=== PATIENT | male | born 1945 | race Caucasian/White ===

== ENCOUNTER → 2017-07-28 | Outpatient (CLI) | payer MEDICARE, BC ==
[2017-07-28 14:36] LABS: CH 32.7; CHCM 35.8; HCT 50.2 % (39.0-53.0); HDW 2.76; HGB 17.7 gm/dL (13.0-17.5); MCH 32.3 pg (25.0-35.0); MCHC 35.2 g/dL (31.0-37.0); MCV 91.9 fL (80.0-100.0); Mean Platelet Volume 7.1; RBC 5.47 m/uL (4.30-5.90); RDW 13.3 % (11.5-15.5)
[2017-07-28 14:48] LABS: Anion Gap 12 mmol/L; Blood Urea Nitrogen 23 mg/dL (9-20); Calcium 9.5 mg/dL (8.4-10.2); Carbon Dioxide 21 mmol/L (22-30); Chloride 108 mmol/L (98-107); Glucose 151 mg/dL (74-99); Non-African American GFR(MDRD) >60 (>60 ml/min/1.73 sqM); Sodium 141 mmol/L (137-145)
== END | disposition home or self-care (01) ==
LOC: LABWHC1 14:08
PROVIDERS: ATTEND Internal Medicine Clinical Cardiac Electrophysiology
DX: I48.1 Persistent atrial fibrillation (principal)
CPT/HCPCS: 36415; 80048; 85027

== ENCOUNTER → 2017-08-02 | Day surgery (SDC) | payer MEDICARE, BC ==
[2017-07-28 13:24] VITALS: BMI 39.3
[~2017-08-02] MED LIST: LACTATED RINGERS 1,000 ML IV ONE; LIDOCAINE 1% INJ 10MG/ML (20 ML MDV) ONE; MIDAZOLAM 2 MG/2 ML VIAL ONE; PROPOFOL 10 MG/ML 20 ML VIAL IV ONE; SODIUM CHLORIDE 0.9% 1,000 ML IV ONE
[2017-08-02 10:53] LABS: Glucose,Whole Blood 124 mg/dL (75-99)
--- NOTE | 2017-08-02 12:40 | P.PCN ---
Preoperative Diagnosis: Procedure Electrical cardioversion Indication for the procedure Symptomatic atrial fibrillation despite adequate rate control, persistent in nature Result 360 J biphasic shock in the AP configuration 2 failed to convert to sinus rhythm 360 J shock in the anterior apical configuration 1 showed immediate recurrence of atrial fibrillation with bursts of brief atrial tachycardia followed by A. fib Suggest Continue current medications Continue anticoagulation Proceed with A. fib ablation Postoperative Diagnosis: Procedure(s) Performed: Implants: Anesthesia: MAC Indications for Procedure: Operative Findings: Description of Procedure:
[2017-08-02 12:42] VITALS: RESP 16
[2017-08-02 13:18] VITALS: TEMP 97.8
[2017-08-02 13:44] VITALS: PULSE 71
[2017-08-02 14:25] VITALS: BP 115/75
== END ==
LOC: CATHCVL 10:23
PROVIDERS: ATTEND Internal Medicine Clinical Cardiac Electrophysiology
DX: I48.1 Persistent atrial fibrillation (principal); I10 Essential (primary) hypertension; I42.9 Cardiomyopathy, unspecified; I49.5 Sick sinus syndrome; I47.1 Supraventricular tachycardia; E66.9 Obesity, unspecified; Z68.39 Body mass index [BMI] 39.0-39.9, adult; G47.33 Obstructive sleep apnea (adult) (pediatric); Z99.89 Dependence on other enabling machines and devices; E78.5 Hyperlipidemia, unspecified; Z82.49 Family history of ischemic heart disease and other diseases of the circulatory system; Z79.84 Long term (current) use of oral hypoglycemic drugs; Z79.02 Long term (current) use of antithrombotics/antiplatelets; Z79.82 Long term (current) use of aspirin; Z79.899 Other long term (current) drug therapy; Z98.890 Other specified postprocedural states
CPT/HCPCS: 92960; J2250; J2001; J2704

== ENCOUNTER 2017-08-30 06:09 | Day surgery (SDC) | payer MEDICARE, BC ==
[2017-08-30] MEDS: SODIUM CHLORIDE 0.9% 1,000 ML IV SCH (06:37)
[2017-08-30 07:23] LABS: Glucose,Whole Blood 137 mg/dL (75-99)
[2017-08-30] MEDS ORDERED: HEPARIN SODIUM,PORCINE 10,000 UNIT/ML 1 ML VIAL ONE (07:24)
[2017-08-30] MEDS ORDERED: PHENYLEPHRINE-0.9% NACL SYG 1 MG/10 ML SYRINGE ONE (07:24)
[2017-08-30] MEDS ORDERED: SUCCINYLCHOLINE CHLORIDE VIAL 200 MG/10 ML VIAL IV ONE (07:24)
[2017-08-30] MEDS ORDERED: ATROPINE SULFATE 0.4 MG/ML 1 ML VIAL ONE (07:24)
[2017-08-30] MEDS ORDERED: LIDOCAINE 1% INJ 10MG/ML (20 ML MDV) ONE (07:24)
[2017-08-30] MEDS ORDERED: PROTAMINE SULFATE 10 MG/ML 5 ML VIAL IV ONE (07:24)
[2017-08-30] MEDS ORDERED: MIDAZOLAM 2 MG/2 ML VIAL ONE (07:24)
[2017-08-30] MEDS ORDERED: PROPOFOL 10 MG/ML 20 ML VIAL IV ONE (07:24)
[2017-08-30] MEDS ORDERED: fentaNYL (PF) 50 MCG/ML 2 ML AMP ONE (07:24)
[2017-08-30] MEDS ORDERED: LIDOCAINE 2% INJ 20 MG/ML SQ ONE (08:12)
[2017-08-30] MEDS ORDERED: HEPARIN SODIUM,PORCINE/D5W PMX 25,000 UNIT in DEXTROSE/WATER 1 500ML.BAG IV ONE (08:30)
[2017-08-30] MEDS ORDERED: FUROSEMIDE 10 MG/ML 4 ML VIAL ONE (08:36)
[2017-08-30] MEDS ORDERED: HYDROcodone/APAP 7.5-325MG 1 EACH TAB PO PRN (11:13)
[2017-08-30] MEDS ORDERED: ACETAMINOPHEN TAB 325 MG TAB PO PRN (11:14)
--- NOTE | 2017-08-30 11:31 | P.PCN ---
Preoperative Diagnosis: Procedures performed (PVI - CRYO Ablation) Invasive hemodynamic monitoring while general anesthesia, right femoral arterial line for monitoring and sampling Comprehensive diagnostic EP study with attempted arrhythmia induction CS pacing and recording Catheter the mapping of the tachycardia (NOT 3D mapping) Intracardiac echocardiography Pulmonary vein isolation with transseptal and comprehensive EPS, [id number] Electrical cardioversion for atrial fibrillation Procedure details Patient was brought to the EP lab in a fasting state. Written informed consent was obtained prior to the procedure. Procedure performed under general anesthesia After initial muscle relaxant use, muscle relaxants were not given thereafter in order to assess phrenic nerve during procedure Patient prepped and draped as per protocol Full cryo-set up with standard preparation of the cryoablation tools done Femoral Venous access obtained on the right and left groins Sheaths placed Diagnostic catheters for the high right atrium, phrenic nerve stimulation and pacing, His bundle, RV and coronary sinus placed Intracardiac echo catheter placed Long sheath placed in the right atrium Left and right transseptal catheterization performed under intracardiac echo guidance Intravenous heparin with aCT above 300 Later, catheter positioning and balloon positioning under intracardiac echo Baseline measurements During sinus rhythm sinus cycle length was 1970 ms, ND interval 228, QRS 84 QT interval 427 ms. AH interval 114 ms, HV interval 63 ms Comprehensive diagnostic EP study Atrial pacing performed from the high right atrium and the coronary sinus and right ventricle pacing also performed AV node Wenckebach block from the coronary sinus for 90 ms, VA Wenckebach block greater than 600 ms. Straight pacing from the high right atrium, AV node Wenckebach block 550 ms. Transseptal catheterization performed RA pressure 21/15/18 LA pressure 29/15/21 Transseptal catheterization performed with standard sheath. The cryoablation sheath was then placed with an over the wire exchange without any acute complications. All 4 pulmonary veins were isolated in the following sequence: Left superior followed by left inferior followed by right superior followed by right inferior The cryo-ablation balloon was placed at the os of each vein 1.5 mL of IV dye was injected to confirm an occluded vein Goal during cryoablation was to achieve -30C in the first 30 seconds. If not the balloon was repositioned to obtain this result After completion of Cryoblation with durations from 180-240 seconds, entrance block was confirmed with the Attain circular catheter in a roving fashion around the antrum of the pulmonary veins Phrenic nerve pacing was performed from the SVC, right innominate vein area and diaphragm voltage was monitored as well as manually Left superior pulmonary vein was fibrillating prior to the start of study Successful isolation of the veins with entrance block demonstrated during distal CS pacing Left inferior pulmonary vein Successful isolation with entrance block Time to isolation less than 60 seconds Right superior pulmonary vein, during phrenic nerve pacing successful isolation with entrance block Right superior PVI completely isolated in the first 3 minutes, unable to demonstrate TT-PVI Right inferior pulmonary vein, during phrenic nerve pacing Successful isolation with entrance block demonstrated. Time to isolation less than 60 seconds At the end of the procedure the Achieve catheter was once again used to check for entrance block Phrenic nerve stimulation was performed to confirm diaphragmatic stimulation the end of the procedure Cine fluoroscopy was performed at the very end of the procedure to confirm movement of both diaphragms with inspiration and expiration At the end of the procedure the patient was extubated Heparin was reversed Venous sheaths were removed and hemostasis assured Result Successful pulmonary vein isolation using cryo-ablation Complete entrance block in all 4 veins confirmed No evidence for phrenic nerve injury Where possible, TT-PVI was demonstrated with a 20 mm achieve catheter. Left superior pulmonary vein was fibrillating during atrial fibrillation After all veins were isolated electrical cardioversion was successfully performed Condition: stable Disposition: floor
[2017-08-30] MEDS ORDERED: IOHEXOL 350 MG/ML (PER ML) 100ML BTL INJ ONE (11:43)
[2017-08-30] MEDS ORDERED: ACETAMINOPHEN IV (For NPO) 1,000 MG/100 ML VIAL IVPB ONE (13:00)
[2017-08-30] MEDS ORDERED: FUROSEMIDE 10 MG/ML 4 ML VIAL IV SCH ×2 (13:00→15:00)
[2017-08-30 13:41] LABS: Glucose,Whole Blood 155 mg/dL (75-99)
[2017-08-30] MEDS: LACTATED RINGERS 1,000 ML IV SCH (13:48)
[2017-08-30] MEDS ORDERED: SODIUM CHLORIDE 0.9% 1,000 ML IV SCH (14:30)
[2017-08-30] MEDS: FAMOTIDINE 20 MG TAB PO SCH (15:01)
[2017-08-30 16:23] VITALS: BMI 40.0
[2017-08-30 17:25] LABS: Glucose,Whole Blood 149 mg/dL (75-99)
[2017-08-30] MEDS: CARVEDILOL 3.125 MG TAB PO SCH (18:33)
[2017-08-30] MEDS: LISINOPRIL 20 MG TAB PO SCH (20:43)
[2017-08-30] MEDS: COLCHICINE 0.6 MG TAB PO SCH (20:43)
[2017-08-30] MEDS: APIXABAN 5 MG TAB PO SCH (20:43)
[2017-08-30] MEDS ORDERED: metFORMIN 500 MG TAB PO SCH (21:00)
[2017-08-30] MEDS ORDERED: ATORVASTATIN 20 MG TAB PO SCH (21:00)
[2017-08-30 21:04] LABS: Glucose,Whole Blood 175 mg/dL (75-99)
[2017-08-31] MEDS: LACTATED RINGERS 1,000 ML IV SCH (06:10)
[2017-08-31] MEDS: SODIUM CHLORIDE 0.9% 1,000 ML IV SCH (06:10)
[2017-08-31 06:26] LABS: Glucose,Whole Blood 120 mg/dL (75-99)
[2017-08-31] MEDS: CARVEDILOL 3.125 MG TAB PO SCH ×3 (06:33→17:31)
[2017-08-31] MEDS ORDERED: FUROSEMIDE 40 MG TAB PO STA (07:40)
[2017-08-31] MEDS: LISINOPRIL 20 MG TAB PO SCH (07:48)
[2017-08-31] MEDS: FAMOTIDINE 20 MG TAB PO SCH (07:49)
[2017-08-31] MEDS: COLCHICINE 0.6 MG TAB PO SCH ×2 (07:49→17:25)
[2017-08-31] MEDS: APIXABAN 5 MG TAB PO SCH (07:49)
--- NOTE | 2017-08-31 07:56 | ECHOF ---
Referral Reason:POST EP BP DROP MEASUREMENTS -------- HEIGHT: 182.9 cm WEIGHT: 129.3 kg BP: 87/51 FINDINGS -------- Sinus rhythm. This was a technically adequate study. Limited Study Overall left ventricular systolic function is normal with, an EF between 55 - 60 %. There is no pericardial effusion. CONCLUSIONS -------- 1. Sinus rhythm. 2. This was a technically adequate study. 3. Limited Study 4. Overall left ventricular systolic function is normal with, an EF between 55 - 60 %. 5. There is no pericardial effusion. BOLT SAWYER: Jazzmine Gordon RDCS
--- NOTE | 2017-08-31 07:58 | P.DS ---
Providers Attending physician: Medardo Camara Primary care physician: [facility] Course: Patient is doing well. He denies any chest discomfort no pleuritic pain no dizziness lightheadedness. He did walk up to the bathroom. No cough phlegm or expectoration no odynophagia On examination his breath sounds are reduced bilaterally with some crackles at both bases. Heart sounds S1 and S2 are normal no murmurs or gallops abdomen soft nontender extremities are warm no edema. Groins have healed well. No hematoma minimal tenderness noted. No JVD Blood pressure was 110/66. His mercury and 118 on repeat examination. Pulse rate in the 60s and 70s Impression Persistent atrial fibrillation, failed electrical cardioversion recently, unable to cardiovert him, symptomatic A. 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 The left superior pulmonary vein was arrhythmogenic and was fibrillating After isolation of all 4 pulmonary veins electrical cardioversion was performed and was successful at first attempt Suggest Lasix 40 mg by mouth 1 dose only Colchicine and Pepcid for 5 days only and then stop I will see him within one week If he remains stable through the day is ambulating, using his incentive spirometer has no symptoms in his blood pressure is stable he may go home by 6 PM today Patient Condition at Discharge: Good Plan - Discharge Summary New Discharge Prescriptions: No Action RX: Apixaban [Eliquis] 5 mg PO BID RX: amLODIPine [Norvasc] 10 mg PO DAILY RX: Citalopram Hydrobromide [CeleXA] 40 mg PO DAILY RX: Aspirin 81 mg PO DAILY RX: Spironolactone [Aldactone] 25 mg PO DAILY Lisinopril [Prinivil] 20 mg PO BID Carvedilol [Coreg] 3.125 mg PO BID Atorvastatin [Lipitor] 20 mg PO HS HYDROcodone/APAP 7.5-325MG [Rainier 7.5-325] 1 tab PO Q6HR PRN PRN Reason: Pain metFORMIN HCL [Glucophage] 500 mg PO HS Discharge Medication List RX: Apixaban [Eliquis] 5 mg PO BID 12/27/14 [History] RX: amLODIPine [Norvasc] 10 mg PO DAILY 12/27/14 [History] RX: Aspirin 81 mg PO DAILY 12/30/14 [History] RX: Citalopram Hydrobromide [CeleXA] 40 mg PO DAILY 12/30/14 [History] RX: Spironolactone [Aldactone] 25 mg PO DAILY 12/30/14 [History] Lisinopril [Prinivil] 20 mg PO BID 04/10/15 [History] Atorvastatin [Lipitor] 20 mg PO HS 05/12/16 [History] Carvedilol [Coreg] 3.125 mg PO BID 05/12/16 [History] HYDROcodone/APAP 7.5-325MG [Rainier 7.5-325] 1 tab PO Q6HR PRN 07/28/17 [History] metFORMIN HCL [Glucophage] 500 mg PO HS 07/28/17 [History] Patient Instructions/Handouts: Cardiac Ablation (DC)
[2017-08-31] MEDS ORDERED: SPIRONOLACTONE 25 MG TAB PO SCH (09:00)
[2017-08-31] MEDS ORDERED: ASPIRIN 81 MG PO SCH (09:00)
[2017-08-31] MEDS ORDERED: amLODIPine 10 MG TAB PO SCH (09:00)
[2017-08-31] MEDS ORDERED: CITALOPRAM HYDROBROMIDE 20 MG TAB PO SCH (09:00)
[2017-08-31 12:00] LABS: Glucose,Whole Blood 130 mg/dL (75-99)
[2017-08-31 16:03] VITALS: BP 118/71; PULSE 75; RESP 16; TEMP 97.7
[2017-08-31 16:29] LABS: Glucose,Whole Blood 96 mg/dL (75-99)
== END 2017-08-31 17:46 | disposition home or self-care (01) ==
LOC: CATHEP 06:09 → 6SEL 11:03 → CATHEP 08-31 17:46
PROVIDERS: ATTEND Internal Medicine Clinical Cardiac Electrophysiology
DX: I48.1 Persistent atrial fibrillation (principal); Z79.01 Long term (current) use of anticoagulants; I42.8 Other cardiomyopathies; I49.5 Sick sinus syndrome; I10 Essential (primary) hypertension; Z82.49 Family history of ischemic heart disease and other diseases of the circulatory system; G47.33 Obstructive sleep apnea (adult) (pediatric); Z99.89 Dependence on other enabling machines and devices; E66.9 Obesity, unspecified; Z68.39 Body mass index [BMI] 39.0-39.9, adult; E78.5 Hyperlipidemia, unspecified; Z79.82 Long term (current) use of aspirin; Z79.84 Long term (current) use of oral hypoglycemic drugs; Z79.899 Other long term (current) drug therapy
CPT/HCPCS: 93308; 92960; 93662; 93609; 93656; 85347; 84132; C1894 ×3; C1769 ×4; C1730 ×3; C1759; C1893; C1733; C1766; J2001 ×2; J2250; J0330; J2720; J0461; J1644 ×2; Q9967; J3010; J0131; J2370; J2704

== ENCOUNTER 2019-05-22 23:00 | Inpatient (IN) | payer OTHER, MEDICARE ==
[2019-05-22] MEDS ORDERED: ALBUTEROL NEB (CONC) 2.5 MG/0.5 ML INHALATION ONE (23:34)
[2019-05-22] MEDS ORDERED: IPRATROPIUM-ALBUTEROL 3 ML NEB ONE (23:34)
[2019-05-22] MEDS ORDERED: IPRATROPIUM 0.5 MG/2.5 ML NEBU INHALATION ONE (23:34)
[2019-05-23] MEDS ORDERED: DEXAMETHASONE SOD PHOSPHATE 10 MG/ML 1 ML VIAL ONE (00:05)
[2019-05-23] MEDS ORDERED: MAGNESIUM SULFATE-D5W PMX 1 GM/100 ML BAG IVPB ONE (00:05)
[2019-05-23 06:06] LABS: INR 0.9 (<1.2); Partial Thromboplastin Time 26.1 sec (22.0-30.0); Prothrombin Time 10.1 sec (9.0-12.0)
[2019-05-23 06:10] LABS: Basophils # (A) 0.1 k/uL (0-0.2); Basophils % (A) 1 %; Eosinophils # (A) 0.5 k/uL (0-0.7); Eosinophils % (A) 5 %; HCT 48.8 % (39.0-53.0); HGB 16.7 gm/dL (13.0-17.5); Lymphocytes # (A) 2.2 k/uL (1.0-4.8); Lymphocytes % (A) 21 %; MCH 31.7 pg (25.0-35.0); MCHC 34.2 g/dL (31.0-37.0); MCV 92.6 fL (80.0-100.0); Mean Platelet Volume 7.4; Monocytes # (A) 0.9 k/uL (0-1.0); Monocytes % (A) 8 %; Neutrophils # (A) 6.4 k/uL (1.3-7.7); Neutrophils % (A) 61 %; Platelet Count 244 k/uL (150-450); RBC 5.28 m/uL (4.30-5.90); RDW 13.4 % (11.5-15.5); WBC 10.4 k/uL (3.8-10.6)
[2019-05-23 06:15] LABS: Albumin 4.5 g/dL (3.5-5.0); Calcium 9.5 mg/dL (8.4-10.2); Magnesium 1.8 mg/dL (1.6-2.3); Potassium 4.7 mmol/L (3.5-5.1); Total Bilirubin 0.5 mg/dL (0.2-1.3); Total Protein 7.7 g/dL (6.3-8.2)
[2019-05-23 06:16] LABS: Creatine Kinase 156 U/L (55-170); Creatine Kinase MB 2.6 ng/mL (0.0-2.4); Troponin I <0.012 ng/mL (0.000-0.034)
[2019-05-23] MEDS ORDERED: ACETAMINOPHEN TAB 325 MG TAB PO PRN (06:44)
[2019-05-23] MEDS ORDERED: NALOXONE 0.4 MG/ML 1 ML VIAL IV PRN (06:44)
[2019-05-23] MEDS ORDERED: HYDROcodone/APAP 7.5-325MG 1 EACH TAB PO PRN (06:46)
[2019-05-23] MEDS ORDERED: IPRATROPIUM-ALBUTEROL 3 ML NEB INHALATION PRN (06:47)
--- NOTE | 2019-05-23 07:06 | P.HPIM ---
History of Present Illness H&P Date: 05/23/19 Chief Complaint: Shortness of breath 73-year-old male with history of A. fib diabetes hypertension Patient comes into the hospital today due to progressive worsening of shortness of breath. He reports that his symptoms started 3 months ago he's been seeing his doctors who treated him with antibiotics for presumed pneumonia he used to have productive cough of tannish brownish sputum, and yesterday he was having some hemoptysis. He described it as small amounts streaky not all the time. He denies any history of asthma or COPD but he was given a nebulizer and inhalers to use over the past 3 months with which sometimes he gets some improvement. However over the past week and symptoms got worse again, he describes exertional dyspnea with wheezing and shortness of breath but denies any chest pain. He denies any fevers or chills reports chronic cough for at least 3 months now. He reports prior exposure to smoking secondhand smoking on previous jobs but he never been a smoker. Patient went to an urgent care yesterday gave him some breathing treatment went back home and then symptoms got worse again at night decided to come to the hospital. Typically report symptoms worse at night and when he ambulates. He doesn't use any home oxygen. He reports some orthopnea and paroxysmal maternal dyspnea at night. He keeps windows open in fact on however he uses CPAP and he's been compliant with it. He has history of sleep apnea. He denies any leg swelling but he prefers to keep his head up when he lays down as he reports an inability to breathe if he lays flat. He denies any history of congestive heart failure most recent echocardiogram was from 2017 showing EF of 5560 percent. Patient had history of A. fib with ablation. In the ED chest x-ray showed some obliteration of the left costophrenic angle official report is not back yet. Her phone call today due to patient and manage was probably taken during expiration phace. In the ED, patient was found wheezy he was started on BiPAP was given some breathing treatments which with he reports some improvement overnight. Otherwise his labs were unremarkable, x-ray didn't show any focal infiltrates. Otherwise patient denies any GI bleeding he is on Xarelto for A. fib, denies any abdominal pain nausea or vomiting denies any focal neuro deficits he denies any symptoms of upper respiratory infection like runny nose or sore throat. He denies any muscle aches. Review of Systems Pertinent positives as noted in HPI. All other systems were reviewed and are negative Past Medical History Past Medical History: Atrial Fibrillation, Diabetes Mellitus, Hearing Disorder / Deafness, Hyperlipidemia, Hypertension, Musculoskeletal Disorder, Sleep Apnea/CPAP/BIPAP Additional Past Medical History / Comment(s): RUPTURED DISC L4 L5. SOB w/activity. Uses CPAP. Type 2 diabetes. LT SHOULDER PROBLEMS. History of Any Multi-Drug Resistant Organisms: None Reported Past Surgical History: Appendectomy Additional Past Surgical History / Comment(s): CATARACTS REMOVED. Cardioversion. Past Anesthesia/Blood Transfusion Reactions: No Reported Reaction Smoking Status: Never smoker - Past Family History Mother Family Medical History: No Reported History Additional Family Medical History / Comment(s): Mother with history of COPD Medications and Allergies Home Medications Medication Instructions Recorded Confirmed Type Apixaban [Eliquis] 5 mg PO BID 12/27/14 08/30/17 History Aspirin 81 mg PO DAILY 12/30/14 08/30/17 History Citalopram Hydrobromide [CeleXA] 40 mg PO DAILY 12/30/14 08/30/17 History Spironolactone [Aldactone] 25 mg PO DAILY 12/30/14 08/30/17 History Lisinopril [Prinivil] 20 mg PO BID 04/10/15 08/30/17 History Atorvastatin [Lipitor] 20 mg PO HS 05/12/16 08/30/17 History Carvedilol [Coreg] 3.125 mg PO BID 05/12/16 08/30/17 History metFORMIN HCL [Glucophage] 500 mg PO HS 07/28/17 08/30/17 History Amoxic-Pot Clav 500-125 mg 1 tab PO Q12HR 05/23/19 05/23/19 History [Augmentin 500-125 mg] Benzonatate [Tessalon Perles] 100 mg PO Q8H PRN 05/23/19 05/23/19 History amLODIPine [Norvasc] 5 mg PO DAILY 05/23/19 05/23/19 History Allergies Allergy/AdvReac Type Severity Reaction Status Date / Time No Known Allergies Allergy Verified 05/23/19 06:59 Physical Exam Vitals: Blood pressure 140/80, oxygen saturation 93% on BiPAP, respiratory rate 18 Constitutional: No acute distress, conversant, pleasant, patient on BiPAP seems to be comfortable Eyes: Anicteric sclerae, moist conjunctiva, no lid-lag Pupils equal round reactive to light ENMT: NC/AT Oropharynx clear, no erythema, exudates Neck: Supple, FROM, no masses, or JVD No carotid bruits No thyromegaly Lungs: Prolonged expiratory phase with expiratory wheezes, no rales or rhonchi Clear to percussion Normal respiratory effort, no accessory muscle use , patient currently on BiPAP Cardiovascular: Heart regular in rate and rhythm, No murmurs, gallops, or rubs No peripheral edema Abdominal: obese with mildly distended abdomen Nontender, no guarding, rebound or rigidity Abdomen moving with respiration Normoactive bowel sounds No hepatomegaly, No splenomegaly No palpable mass No abdominal wall hernia noted Skin: Normal temperature, tone, texture, turgor No induration No subcutaneous nodules No rash, lesions No ulcers Extremities: No digital cyanosis No clubbing Pedal pulses intact and symmetrical Radial pulses intact and symmetrical No calf tenderness Psychiatric: Alert and oriented to person, place and time Appropriate affect fair judgment Neuro Muscles Strength 5/5 in all 4 extremities Sensation to light touch grossly present throughout Cranial nerves II-XII grossly intact No focal sensory deficits Lymphatics: no palpable cervical or supraclavicular , or inguinal lymph nodes Results CBC & Chem 7: 05/22/19 23:25 05/22/19 23:25 Labs: Abnormal Lab Results - Last 24 Hours (Table) 05/22/19 05/22/19 Range/Units 23:25 23:25 Chloride 108 H (98-107) mmol/L BUN 25 H (9-20) mg/dL Glucose 222 H (74-99) mg/dL CK-MB (CK-2) 2.6 H (0.0-2.4) ng/mL Assessment and Plan Assessment: 73-year-old male with history of diabetes, A. fib status post ablation on his Route toe, hypertension. Patient admitted as an inpatient with anticipated length of stay more than 48 hours due to progressive exertional dyspnea patient with no history of CHF or COPD, symptoms were persistent despite outpatient treatment with nebulized inhalers patient admitted for further workup and evaluation. At this time chest x-ray showed no evidence of acute infiltrates Plan: Exertional dyspnea rule out underlying COPD versus CHF Patient with no history of CHF or COPD in the past, however he reports symptoms of orthopnea and exertional dyspnea. In the ED was found to be wheezing, chest x-ray showed only mild left costophrenic angle obliteration with no acute infiltrates Occasional hemoptysis with chronic cough possibly secondary to bronchitis Plan Continue COPD pathway due to history of exposure to secondhand smoking IV Solu-Medrol, nebulized inhalers when necessary BiPAP when needed Echocardiogram check ventricular ejection fraction Chronic conditions Diabetes mellitus on oral hypoglycemics, patient will be given insulin sliding scale Hypertension resume home meds Obstructive sleep apnea BiPAP at night Paroxysmal A. fib status post ablation continue with xarelto Consider outpatient pulmonary function tests Check A1c, patient reports poor sugar control at home Surrogate decision-maker: CODE STATUS: Full code DVT prophylaxis: Xarelto for A. fib Discussed with: Patient, ER, RN Anticipated discharge: 48-[address]: Home A total of 60 minutes was spent on the care of this complex patient more than 50 % of the time was spent in counseling and care coordination.
[2019-05-23] MEDS ORDERED: INSULIN ASPART (NovoLOG) 100 UNIT/ML VIAL SQ SCH (07:30)
[2019-05-23] MEDS ORDERED: ALBUTEROL NEBULIZED 2.5 MG/3 ML INHALATION PRN (07:51)
--- NOTE | 2019-05-23 09:15 | XR ---
EXAMINATION TYPE: XR chest 1V DATE OF EXAM: 05/23/2019 COMPARISON: Prior chest x-ray 07/29/2013 HISTORY: Chest pain and shortness of breath TECHNIQUE: Single frontal view of the chest is obtained. FINDINGS: There is elevation of the left hemidiaphragm, patient is rotated. Air-filled structure in the left upper quadrant may represent stomach or loop of colon are both. Subsegmental atelectatic kennedy nges or scarring present at the left lung base. Technique is apical lordotic and rotated. Heart size is possibly accentuated by technique. There are overlying cardiac leads. IMPRESSION: Nonspecific findings as described.
[2019-05-23] MEDS: CARVEDILOL 3.125 MG TAB PO SCH ×2 (10:05→17:10)
[2019-05-23] MEDS: ASPIRIN 81 MG PO SCH (10:06)
[2019-05-23] MEDS: COLCHICINE 0.6 MG EACH PO SCH ×2 (10:06→10:09)
[2019-05-23] MEDS: APIXABAN 5 MG TAB PO SCH ×2 (10:06→21:20)
[2019-05-23] MEDS: amLODIPine 10 MG TAB PO SCH (10:06)
[2019-05-23] MEDS: SPIRONOLACTONE 25 MG TAB PO SCH (10:09)
[2019-05-23] MEDS: LISINOPRIL 20 MG TAB PO SCH ×2 (10:09→21:20)
[2019-05-23] MEDS: FAMOTIDINE 20 MG TAB PO SCH (10:09)
[2019-05-23] MEDS: CITALOPRAM HYDROBROMIDE 20 MG TAB PO SCH (10:10)
[2019-05-23 10:15] LABS: Glucose,Whole Blood 300 mg/dL (75-99)
[2019-05-23] MEDS: IPRATROPIUM-ALBUTEROL 3 ML NEB INHALATION SCH ×5 (11:40→23:29)
[2019-05-23] MEDS: ALPRAZolam 0.25 MG TAB PO PRN ×2 (11:49→17:10)
[2019-05-23 12:13] LABS: Glucose,Whole Blood 282 mg/dL (75-99)
[2019-05-23] MEDS: INSULIN ASPART (NovoLOG) 100 UNIT/ML VIAL SQ SCH ×3 (12:16→21:19)
[2019-05-23] MEDS: methylPREDNISolone SOD SUCCI 125 MG/2 ML VIAL IV SCH ×2 (12:17→17:10)
--- NOTE | 2019-05-23 14:33 | P.PN ---
Progress Note - Text Progress Note Date: 05/23/19 (delayed charting seen at 0930) Hospitalist Interval Note: Patient seen and examined at bedside. Breathing is much better, cough is better, chest pain on the right hand side. Vital signs reviewed General: non toxic, no distress, appears at stated age Derm: warm, dry Head: atraumatic, normocephalic, symmetric Eyes: EOMI, no lid lag, anicteric sclera Mouth: no lip lesion, mucus membranes moist Cardiovascular: S1S2 irreg, no murmur, positive posterior tibial pulse bilateral, Lungs: wheeze bilateral bases , no accessory muscle use Assessment/Plan: Acute exacerbation of suspected COPD -Continue with Solu-Medrol, bronchodilators scheduled and as needed, pulmonary hygiene, awaiting echocardiogram, Dr. Willams Rx Diabetes mellitus type 2-patient with hyperglycemia -Continue sliding scale changed to sliding scale B, hold oral, may need long- acting insulin if patient's sugars remain elevated Hypertension -Continue current medications BAN-CPAP at night Paroxysmal A. fib-continue Xarelto This is an update note for patient , for full note on 05/23 see H and P. There is no charge associated with this note.
[2019-05-23 14:59] LABS: Glucose,Whole Blood 311 mg/dL (75-99)
[2019-05-23 17:15] LABS: Glucose,Whole Blood 299 mg/dL (75-99)
[2019-05-23 20:08] LABS: Glucose,Whole Blood 278 mg/dL (75-99)
[2019-05-23] MEDS ORDERED: ATORVASTATIN 20 MG TAB PO SCH (21:00)
[2019-05-24] MEDS: methylPREDNISolone SOD SUCCI 125 MG/2 ML VIAL IV SCH ×3 (00:06→12:50)
[2019-05-24] MEDS: IPRATROPIUM-ALBUTEROL 3 ML NEB INHALATION SCH ×3 (03:09→10:47)
[2019-05-24 07:12] LABS: Glucose,Whole Blood 330 mg/dL (75-99)
[2019-05-24] MEDS: INSULIN ASPART (NovoLOG) 100 UNIT/ML VIAL SQ SCH ×2 (08:16→12:50)
[2019-05-24] MEDS: ASPIRIN 81 MG PO SCH (08:18)
[2019-05-24] MEDS: amLODIPine 10 MG TAB PO SCH (08:18)
[2019-05-24] MEDS: APIXABAN 5 MG TAB PO SCH (08:18)
[2019-05-24] MEDS: LISINOPRIL 20 MG TAB PO SCH (08:19)
[2019-05-24] MEDS: SPIRONOLACTONE 25 MG TAB PO SCH (08:19)
[2019-05-24] MEDS: FAMOTIDINE 20 MG TAB PO SCH (08:19)
[2019-05-24] MEDS: CITALOPRAM HYDROBROMIDE 20 MG TAB PO SCH (08:19)
[2019-05-24] MEDS: CARVEDILOL 3.125 MG TAB PO SCH (08:20)
[2019-05-24] MEDS: ALPRAZolam 0.25 MG TAB PO PRN ×2 (08:23→14:14)
[2019-05-24 11:02] VITALS: PULSE 80
[2019-05-24 11:37] LABS: Glucose,Whole Blood 363 mg/dL (75-99)
[2019-05-24 12:09] VITALS: BP 114/68; RESP 17; TEMP 97.3
--- NOTE | 2019-05-24 12:36 | P.CNPUL ---
History of Present Illness Consult date: 05/24/19 Requesting physician: Silver Quintanilla Reason for consult: dyspnea Chief complaint: acute exacerbation of chronic bronchial asthma History of present illness: This is a 73-year-old white male patient with past medical history of chronic bronchial asthma, obstructive sleep apnea on CPAP therapy, chronic A. fib on Xarelto, diabetes mellitus, hypertension, hyperlipidemia, who presented to the emergency department on 05/22/2019 with complaints of worsening shortness of breath, wheezing, cough, and congestion. Patient states his symptoms started 3 months ago, and patient was seen by his PCP at the [facility]. Most recently his symptoms had progressed, he is bringing up tannish brownish sputum, increasing weakness, some limited hemoptysis. Denied any fever or chills. Denying any sick contacts, patient is a lifetime nonsmoker. He's been compliant with his CPAP. Complaining of some mild orthopnea. Swelling, denies any recent weight gain. Patient was seen in the urgent care clinic, and was started on Augmentin, however his symptoms became much worse, patient felt like his breathing her chart down, could not breathe, was lightheaded, and hence patient went to the hospital. Chest x-ray was completed showing elevation of the left hemidiaphragm, this was a rotated film, subsegmental atelectatic changes at the left lung base, no acute findings. Patient has been afebrile, pulse ox is 95%, hemodynamically stable, labs showed a white blood cell on of 10.4, hemoglobin 16.7, electrolytes were unremarkable for BUN was 25 creatinine is 1.08, troponin was negative 1, LFTs were within normal limits. He was started on IV Solu- Medrol, nebulized bronchodilators, and she is feeling better, he is requesting to go home today. He is on room air, maintaining good oxygenation, lung sounds reveal good air entry bilaterally, some expiratory wheezing. But no acute distress, no fever or chills, no complaints of chest discomfort. Echocardiogram is pending. Review of Systems All systems: negative Constitutional: Denies chills, Denies fever Eyes: denies blurred vision, denies pain Ears, nose, mouth and throat: Denies headache, Denies sore throat Cardiovascular: Denies chest pain, Denies shortness of breath Respiratory: Reports congestion, Reports dyspnea, Reports sleep apnea, Reports wheezing, Denies cough Gastrointestinal: Denies abdominal pain, Denies diarrhea, Denies nausea, Denies vomiting Musculoskeletal: Denies myalgias Integumentary: Denies pruritus, Denies rash Neurological: Denies numbness, Denies weakness Psychiatric: Denies anxiety, Denies depression Endocrine: Denies fatigue, Denies weight change Past Medical History Past Medical History: Atrial Fibrillation, Diabetes Mellitus, Hearing Disorder / Deafness, Hypertension, Musculoskeletal Disorder, Sleep Apnea/CPAP/BIPAP Additional Past Medical History / Comment(s): RUPTURED DISC L4 L5. SOB w/activity. Uses CPAP. Type 2 diabetes. LT SHOULDER PROBLEMS. History of Any Multi-Drug Resistant Organisms: None Reported Past Surgical History: Appendectomy, Cardiac Ablation Additional Past Surgical History / Comment(s): CATARACTS REMOVED. Cardioversion. Past Anesthesia/Blood Transfusion Reactions: No Reported Reaction Past Psychological History: PTSD Smoking Status: Never smoker Past Alcohol Use History: None Reported Past Drug Use History: None Reported - Past Family History Mother Family Medical History: No Reported History Additional Family Medical History / Comment(s): Mother with history of COPD Medications and Allergies Home Medications Medication Instructions Recorded Confirmed Type Apixaban [Eliquis] 5 mg PO BID 12/27/14 05/23/19 History Aspirin 81 mg PO DAILY 12/30/14 05/23/19 History Citalopram Hydrobromide [CeleXA] 40 mg PO DAILY 12/30/14 05/23/19 History Spironolactone [Aldactone] 25 mg PO DAILY 12/30/14 05/23/19 History Lisinopril [Prinivil] 20 mg PO BID 04/10/15 05/23/19 History Atorvastatin [Lipitor] 20 mg PO HS 05/12/16 05/23/19 History Carvedilol [Coreg] 3.125 mg PO BID 05/12/16 05/23/19 History metFORMIN HCL [Glucophage] 500 mg PO BID 07/28/17 05/23/19 History Amoxic-Pot Clav 500-125 mg 1 tab PO Q12HR 05/23/19 05/23/19 History [Augmentin 500-125 mg] Benzonatate [Tessalon Perles] 100 mg PO Q8H PRN 05/23/19 05/23/19 History amLODIPine [Norvasc] 5 mg PO DAILY 05/23/19 05/23/19 History Allergies Allergy/AdvReac Type Severity Reaction Status Date / Time No Known Allergies Allergy Verified 05/23/19 06:59 Physical Exam Vitals: Vital Signs Temp Pulse Pulse Pulse Resp BP Pulse Ox 05/24/19 12:07 97.3 F L 80 17 114/68 95 05/24/19 11:00 80 05/24/19 10:47 78 05/24/19 09:37 93 L 05/24/19 07:02 77 05/24/19 06:49 76 05/24/19 05:00 98.0 F 83 16 121/62 93 L 05/24/19 00:00 16 05/23/19 23:40 74 05/23/19 23:29 70 05/23/19 21:00 98.0 F 81 16 117/58 94 L 05/23/19 20:15 16 05/23/19 19:58 72 05/23/19 19:47 70 05/23/19 16:45 72 05/23/19 16:33 70 05/23/19 14:18 98 F 93 22 129/78 95 Intake and Output 05/23/19 05/24/19 05/24/19 22:59 06:59 14:59 Other: Voiding Method Toilet Urinal # Voids 1 1 Weight 129 kg GENERAL EXAM: Alert, pleasant, 73-year-old white male, on room air, with pulse ox of 93%, comfortable in no apparent distress. HEAD: Normocephalic/atraumatic. EYES: Normal reaction of pupils, equal size. Conjunctiva pink, sclera white. NOSE: Clear with pink turbinates. THROAT: No erythema or exudates. NECK: No masses, no JVD, no thyroid enlargement, no adenopathy. CHEST: No chest wall deformity. Symmetrical expansion. LUNGS: Equal air entry with expiratory wheezes, good air entry noted bilaterally CVS: Regular rate and rhythm, normal S1 and S2, no gallops, no murmurs, no rubs ABDOMEN: Soft, nontender. No hepatosplenomegaly, normal bowel sounds, no guarding or rigidity. EXTREMITIES: No clubbing, no edema, no cyanosis, 2+ pulses and upper and lower extremities. MUSCULOSKELETAL: Muscle strength and tone normal. SPINE: No scoliosis or deformity SKIN: No rashes CENTRAL NERVOUS SYSTEM: Alert and oriented -3. No focal deficits, tone is normal in all 4 extremities. PSYCHIATRIC: Alert and oriented -3. Appropriate affect. Intact judgment and insight. Results - Laboratory Findings CBC and BMP: 05/22/19 23:25 05/22/19 23:25 PT/INR, D-dimer PT 10.1 sec (9.0-12.0) 05/22/19 23:25 INR 0.9 (<1.2) 05/22/19 23:25 Abnormal lab findings: Abnormal Labs 05/22/19 05/22/19 05/22/19 23:25 23:25 23:25 Chloride 108 H BUN 25 H Glucose 222 H POC Glucose (mg/dL) Hemoglobin A1c 8.0 H CK-MB (CK-2) 2.6 H 05/23/19 05/23/19 05/23/19 09:24 12:11 14:58 Chloride BUN Glucose POC Glucose (mg/dL) 300 H 282 H 311 H Hemoglobin A1c CK-MB (CK-2) 05/23/19 05/23/19 05/24/19 17:13 20:06 07:11 Chloride BUN Glucose POC Glucose (mg/dL) 299 H 278 H 330 H Hemoglobin A1c CK-MB (CK-2) 05/24/19 11:36 Chloride BUN Glucose POC Glucose (mg/dL) 363 H Hemoglobin A1c CK-MB (CK-2) - Diagnostic Findings Chest x-ray: report reviewed, image reviewed Assessment and Plan Plan: Assessment: #1. Acute exacerbation of chronic bronchial asthma, with failure of outpatient treatment #2. Obstructive sleep apnea on CPAP therapy #3. Chronic atrial fibrillation on anticoagulation in the form of Xarelto, history of prior cardioversion #4. Diabetes mellitus type 2 #5. Hypertension, hyperlipidemia #6. Obesity #7. Lifetime nonsmoker Plan: Patient is stable for discharge home from pulmonary perspective, he is improving, breathing easier, less bronchospastic, good air entry noted bilaterally, he is maintaining good oxygenation on room air. Patient can be sent on outpatient course of antibiotics, he was started on Augmentin in the urgent care clinic, he can finish the course, prednisone taper, he can resume his CPAP, he can be sent home on nebulized bronchodilators, or Combivent inhaler. Will need to be seen in follow-up by Dr. Moreno in the office within 7 days. I performed a history & physical examination of the patient and discussed their management with my nurse practitioner, Jess Montero. I reviewed the nurse practitioner's note and agree with the documented findings and plan of care. Lung sounds are positive for diffuse wheezes throughout the lung sanderson. The findings and the impression was discussed with the patient. I attest to the documentation by the nurse practitioner. Time with Patient: Greater than 30
--- NOTE | 2019-05-24 13:49 | P.DS ---
Providers Date of admission: 05/23/19 01:38 Expected date of discharge: 05/24/19 Attending physician: Joy Loera MD Consults: 05/23/19 07:24 Consult Physician Urgent Consulting Provider: John Moreno Reason/Comments: Acute respiratory failure Do you want consulting provider notified?: Yes, Notify in am Primary care physician: Liam Garcia - Discharge Diagnosis(es) (1) Acute asthma exacerbation Current Visit: Yes Status: Acute (2) Type 2 diabetes mellitus with hyperglycemia Current Visit: Yes Status: Acute (3) Obstructive sleep apnea on CPAP Current Visit: Yes Status: Acute (4) Essential hypertension Current Visit: Yes Status: Acute (5) Hyperlipidemia Current Visit: Yes Status: Acute (6) Persistent atrial fibrillation Current Visit: Yes Status: Acute Hospital Course: The patient is a 73-year-old male with a history of bronchial asthma that was admitted with acute accident exacerbation after presenting with exertional dyspnea and wheezes and cough the patient had apparently failed outpatient therapy as he had previously been to [facility] urgent care clinic started on Augmentin and when his symptoms became worse and he subsequently presented here to the ER. The patient was started on systemic signs with IV Solu-Medrol, nebulized bronchodilator DuoNeb breathing treatments scheduled and prn. Chest x-rays showed elevation of the left hemidiaphragm with subsegmental atelectatic changes left lung base with no acute findings, patient's white count was stable at 10.4. The patient was noted to have hyperglycemia and hypoglycemia was placed on protocols for each including correctional scale insulin coverage, A1c returned at 8.0 indicating suboptimal blood sugar control. With treatment the patient's became less bronchospastic and good symmetric air entry and aeration on his physical exam and was subsequently discharged home with instructions to follow-up with pulmonary Dr. Willams in 7 days. He was init iated on the prednisone taper along with a new prescription for Janumet and his metformin was discontinued. The patient was continued on his home Augmentin dose and reported that he had already filled his prescription for his nebulizer. He was subsequently discharged home in stable condition, this discharge process took approximately 35 minutes. Focused exam Respiratory: Equal air entry with expiratory wheezes and good aeration, unlabored, good oxygenation on room air Patient Condition at Discharge: Good Plan - Discharge Summary Discharge Rx Participant: No New Discharge Prescriptions: New sitaGLIPtin PHOS/metFORMIN HCL [Janumet 50-1,000 mg Tablet] 1 each PO BID #60 tab predniSONE 10 mg PO DIRECTED #30 tab Continue Apixaban [Eliquis] 5 mg PO BID Citalopram Hydrobromide [CeleXA] 40 mg PO DAILY Aspirin 81 mg PO DAILY Spironolactone [Aldactone] 25 mg PO DAILY Lisinopril [Prinivil] 20 mg PO BID Carvedilol [Coreg] 3.125 mg PO BID Atorvastatin [Lipitor] 20 mg PO HS amLODIPine [Norvasc] 5 mg PO DAILY Amoxic-Pot Clav 500-125 mg [Augmentin 500-125 mg] 1 tab PO Q12HR Benzonatate [Tessalon Perles] 100 mg PO Q8H PRN PRN Reason: Cough Discontinued metFORMIN HCL [Glucophage] 500 mg PO BID Discharge Medication List Apixaban [Eliquis] 5 mg PO BID 12/27/14 [History] Aspirin 81 mg PO DAILY 12/30/14 [History] Citalopram Hydrobromide [CeleXA] 40 mg PO DAILY 12/30/14 [History] Spironolactone [Aldactone] 25 mg PO DAILY 12/30/14 [History] Lisinopril [Prinivil] 20 mg PO BID 04/10/15 [History] Atorvastatin [Lipitor] 20 mg PO HS 05/12/16 [History] Carvedilol [Coreg] 3.125 mg PO BID 05/12/16 [History] Amoxic-Pot Clav 500-125 mg [Augmentin 500-125 mg] 1 tab PO Q12HR 05/23/19 [History] Benzonatate [Tessalon Perles] 100 mg PO Q8H PRN 05/23/19 [History] amLODIPine [Norvasc] 5 mg PO DAILY 05/23/19 [History] predniSONE 10 mg PO DIRECTED #30 tab 05/24/19 [Rx] sitaGLIPtin PHOS/metFORMIN HCL [Janumet 50-1,000 mg Tablet] 1 each PO BID #60 tab 05/24/19 [Rx] Follow up Appointment(s)/Referral(s): Liam Garcia MD [Primary Care Provider] - 05/30/19 7:30 am (office stated they had limited appointments and if you need to call and change you may do so.) John Moreno DO [Doctor of Osteopathic Medicine] - 06/01/19 9:30 am Patient Instructions/Handouts: Prednisone (By mouth), Sitagliptin/Metformin (By mouth), Asthma (DC) Activity/Diet/Wound Care/Special Instructions: *Please fax all prescriptions to the [facility] before 2 pm on the day of discharge: [phone]. Discharge Disposition: HOME SELF-CARE
== END 2019-05-24 14:27 | disposition home or self-care (01) | DRG 202 ==
LOC: EC 23:00 → 3SCARD 05-23 01:38 → 3NMEDONC 05-23 11:13
PROVIDERS: ADMIT Internal Medicine; ATTEND Internal Medicine
DX: J45.901 Unspecified asthma with (acute) exacerbation (principal); I48.1 Persistent atrial fibrillation; Z79.01 Long term (current) use of anticoagulants; E11.65 Type 2 diabetes mellitus with hyperglycemia; E66.9 Obesity, unspecified; E78.5 Hyperlipidemia, unspecified; F43.10 Post-traumatic stress disorder, unspecified; G47.33 Obstructive sleep apnea (adult) (pediatric); H91.90 Unspecified hearing loss, unspecified ear; I10 Essential (primary) hypertension; I48.0 Paroxysmal atrial fibrillation; I48.2 Chronic atrial fibrillation; Z79.82 Long term (current) use of aspirin; Z79.84 Long term (current) use of oral hypoglycemic drugs; Z79.899 Other long term (current) drug therapy; Z82.5 Family history of asthma and other chronic lower respiratory diseases; Z99.89 Dependence on other enabling machines and devices; Z98.42 Cataract extraction status, left eye; Z98.41 Cataract extraction status, right eye
CPT/HCPCS: 36415; 71045; 80053; 82550; 82553; 83036; 83735; 84484; 85025; 85610; 85730; 93306; 94640; 94660

== ENCOUNTER → 2019-06-18 | Day surgery (SDC) | payer MEDICARE, OTHER ==
[2019-06-15 08:57] VITALS: BMI 24.4
[~2019-06-18] MED LIST changes: -LACTATED RINGERS 1,000 ML IV ONE; +LACTATED RINGERS 1,000 ML IV SCH; +LIDOCAINE 1% 20 ML VIAL (10MG/ML) FOR IV START INTRADERMA PRN; -MIDAZOLAM 2 MG/2 ML VIAL ONE; -SODIUM CHLORIDE 0.9% 1,000 ML IV ONE; +SODIUM CHLORIDE 0.9% 1,000 ML IV SCH
[2019-06-18 10:24] VITALS: RESP 18; TEMP 98.2
[2019-06-18 10:27] LABS: Glucose,Whole Blood 129 mg/dL (75-99)
--- NOTE | 2019-06-18 13:29 | P.PRLE ---
RE: Ramy Jain Liam Mccann underwent successful electrical cardioversion for symptomatic atrial fibrillation despite being adequately rate controlled. As you remember he underwent successful pulmonary and isolation in May on the and this time he had a acute respiratory event during which he was found to be in atrial fibrillation He was quite symptomatic last week in our office despite the fact that his pulmonary situation improved I will see him again later this week and I started him on a very low dose of flecainide since he has Sick Sinus Syndrome but is quite likely that I will be advising linear ablation in the future He will continue his anticoagulation and other medications as before His LV function has improved and become completely normal now Thank you for entrusting me with the care of the patient Warm regards Sincerely Medardo Camara
[2019-06-18 13:38] VITALS: PULSE 66
--- NOTE | 2019-06-18 13:44 | P.PCN ---
Preoperative Diagnosis: Diagnosis Recurrence of atrial fibrillation, persistent Symptomatic tiredness fatigue dizziness despite adequate rate control History of cardio myopathy likely related to atrial fibrillation with normalization of LV function by recent 2-D echo Chronotropic incompetence Short runs of irregular atrial tachycardia on previous Holter monitors 1 run of nonsustained ventricular tachycardia 15 beats Status post cryoablation of the pulmonary veins in May 2017 Procedure Electrical cardioversion Details Successful electrical cardioversion under anesthesia, 360 J biphasic shock, single Successfully converted to sinus rhythm Postprocedure 12-lead ECG shows Sinus because a normal DC narrow QRS flattened ST segments in inferior leads Plan Flecainide 25 mg twice daily This gentleman has Sick Sinus Syndrome chronotropic incompetence Follow up this at 9:00 Twelve-lead ECG and Holter monitor on flecainide 25 mg twice daily I would not give him a higher dose underwent sure that he does not have any significant bradycardia In view of his risk factors and nonsustained atrial tachycardia and recurrence of atrial fibrillation which is very symptomatic, a Lexiscan cardio lyte stress test has also been scheduled on June 26 I will see him this at 9 AM, 21 June I'll see him again in about 3-4 weeks. I am considering linear A. fib ablation in view of his recurrence of A. fib
[2019-06-18 14:27] VITALS: BP 117/74
== END | disposition home or self-care (01) ==
LOC: CATHEP 09:53
PROVIDERS: ATTEND Internal Medicine Clinical Cardiac Electrophysiology
DX: I48.1 Persistent atrial fibrillation (principal); I10 Essential (primary) hypertension; E66.01 Morbid (severe) obesity due to excess calories; Z68.37 Body mass index [BMI] 37.0-37.9, adult; G47.33 Obstructive sleep apnea (adult) (pediatric); Z99.89 Dependence on other enabling machines and devices; I42.0 Dilated cardiomyopathy; Z79.01 Long term (current) use of anticoagulants; Z79.84 Long term (current) use of oral hypoglycemic drugs; Z79.899 Other long term (current) drug therapy
CPT/HCPCS: 93005; 92960; J2001; J2704

== ENCOUNTER → 2019-07-31 | Outpatient (CLI) | payer OTHER ==
[2019-07-31 12:36] LABS: African American GFR (CKD) >90 (>60 ml/min/1.73 sqM); Anion Gap 8 mmol/L; Blood Urea Nitrogen 15 mg/dL (9-20); Carbon Dioxide 27 mmol/L (22-30); Chloride 104 mmol/L (98-107); Glucose 117 mg/dL (74-99); Potassium 4.4 mmol/L (3.5-5.1); Sodium 139 mmol/L (137-145)
[2019-07-31 12:52] LABS: HCT 50.5 % (39.0-53.0); HGB 17.2 gm/dL (13.0-17.5); MCH 31.9 pg (25.0-35.0); MCV 93.6 fL (80.0-100.0); Mean Platelet Volume 7.6; Platelet Count 211 k/uL (150-450); RBC 5.39 m/uL (4.30-5.90); RDW 14.9 % (11.5-15.5); WBC 5.8 k/uL (3.8-10.6)
== END | disposition home or self-care (01) ==
LOC: LABPAT 11:23
PROVIDERS: ATTEND Internal Medicine Clinical Cardiac Electrophysiology
DX: Z01.812 Encounter for preprocedural laboratory examination (principal); I48.0 Paroxysmal atrial fibrillation; I42.0 Dilated cardiomyopathy
CPT/HCPCS: 80051; 82565; 82947; 84520; 85027

== ENCOUNTER 2019-08-09 10:52 | Day surgery (SDC) | payer OTHER ==
[2019-08-03 14:45] VITALS: BMI 37.0
[~2019-08-09 10:52] MED LIST changes: -LACTATED RINGERS 1,000 ML IV SCH; -LIDOCAINE 1% 20 ML VIAL (10MG/ML) FOR IV START INTRADERMA PRN; -LIDOCAINE 1% INJ 10MG/ML (20 ML MDV) ONE; -PROPOFOL 10 MG/ML 20 ML VIAL IV ONE
[2019-08-09 11:28] LABS: Glucose,Whole Blood 136 mg/dL (75-99)
[2019-08-09] MEDS ORDERED: SODIUM CHLORIDE 0.9% 1,000 ML IV ONE ×2 (12:59→17:30)
[2019-08-09] MEDS ORDERED: SUCCINYLCHOLINE CHLORIDE 100 MG/5 ML SYR IV ONE (13:06)
[2019-08-09] MEDS ORDERED: PROPOFOL 10 MG/ML 20 ML VIAL IV ONE (13:06)
[2019-08-09] MEDS ORDERED: MIDAZOLAM 2 MG/2 ML VIAL ONE (13:06)
[2019-08-09] MEDS ORDERED: HEPARIN SODIUM,PORCINE 10,000 UNIT/ML 1 ML VIAL ONE (13:06)
[2019-08-09] MEDS ORDERED: ISOPROTERENOL 250 MCG/1.25 ML SYR IV ONE (13:06)
[2019-08-09] MEDS ORDERED: GLYCOPYRROLATE 0.2 MG/ML 2 ML VIAL ONE ×2 (13:06)
[2019-08-09] MEDS ORDERED: PROTAMINE SULFATE 10 MG/ML 5 ML VIAL IV ONE (13:06)
[2019-08-09] MEDS ORDERED: FUROSEMIDE 10 MG/ML 2 ML VIAL ONE (13:06)
[2019-08-09] MEDS ORDERED: NEOSTIGMINE 1 MG/ML 10 ML VIAL ONE (13:06)
[2019-08-09] MEDS ORDERED: PHENYLEPHRINE-0.9% NACL SYG 1 MG/10 ML SYRINGE ONE (13:06)
[2019-08-09] MEDS ORDERED: LIDOCAINE 1% INJ 10MG/ML (20 ML MDV) ONE (13:21)
--- NOTE | 2019-08-09 13:23 | P.HPCAR ---
History of Present Illness This is Dot Locke PA-C dictating an H&P on this patient The patient was interviewed and examined by me as well as by Dr. Camara Case discussed with Dr. Camara and he agrees with the plan of care IMPRESSION / ASSESSMENT: Persistent symptomatic atrial fibrillation status post PVI with cryoablation History of mild nonischemic cardiomyopathy, most recent echocardiogram showed lownormal LV systolic function, EF 50-55% Hypertension, blood pressure is elevated today, states his PCP recently took him off some of his blood pressure medications due to hypotension History of sick sinus syndrome with chronotropic incompetence Diabetes Asthma BAN, uses CPAP PLAN: Proceed with atrial fibrillation ablation HPI Patient is a 73-year-old male with a past medical history of hypertension, persistent atrial fibrillation, history of mild non ischemic cardiomyopathy, sick sinus syndrome, diabetes, asthma, BAN who presents for management of symptomatic persistent atrial fibrillation. He underwent PVI with cryoablation in August 2017 and did well afterwords. Over the summer he began having recurrence of atrial fibrillation. He was symptomatic with tiredness, fatigue and dizziness despite adequate rate control. He underwent an electrical cardioversion in May 2019. He has been on a low-dose of flecainide, 25 mg twice daily. Follow-up Holter monitor showed brief episodes of nonsustained atrial fibrillation. Medication options are limited due to his sick sinus syndrome. Patient seen and examined resting comfortably in bed. Denies chest pain or shortness of breath. Sleeps comfortably, uses his CPAP, no orthopnea or PND. Denies recent infections, fevers, chills, cough. ROS: No fevers, chills or rigors, no cough, phlegm or expectoration, no nausea, vomiting or diarrhea, no hematuria, dysuria, no musculoskeletal complaints, no strokes or seizures, no skin lesions. EXAMINATION: Patient is afebrile, pulse 71, respirations 16, blood pressure 156/81, oxygen saturation 96% on room air Lungs mildly diminished at the bases, no wheezing, rhonchi or crackles appreciated Heart is regular, normal S1-S2, no murmurs rubs or gallops No elevated JVD no lower extremity edema Abdomen soft and nontender to palpation REVIEW OF LABS, ECG & MEDICAL DATA Recent labs reviewed, WBC 5.8, hemoglobin 17.2, platelets 211, potassium 4.4, BUN 15, creatinine 0.96, magnesium 1.8, Recent echocardiogram showed LV systolic function lownormal EF 50-55%, no significant valvular abnormalities Most recent stress test was negative for reversible ischemia coronary angiogram in 2015 showing no obstructive coronary artery disease Physical Exam Vitals: Vital Signs Pulse Resp BP Pulse Ox 08/09/19 11:10 71 6 L 156/81 96 Past Medical History Past Medical History: Atrial Fibrillation, Asthma, Diabetes Mellitus, Hearing Disorder / Deafness, Hypertension, Musculoskeletal Disorder, Osteoarthritis (OA), Sleep Apnea/CPAP/BIPAP Additional Past Medical History / Comment(s): RUPTURED DISC L4 L5. SOB w/activity. Uses CPAP. Type 2 diabetes. LT SHOULDER PROBLEMS. SEE HISTORY AND PHYSICAL FOR CARDIAC HISTORY. History of Any Multi-Drug Resistant Organisms: None Reported Past Surgical History: Appendectomy, Cardiac Ablation Additional Past Surgical History / Comment(s): CATARACTS REMOVED. Cardioversion. Past Anesthesia/Blood Transfusion Reactions: No Reported Reaction Smoking Status: Never smoker - Past Family History Mother Family Medical History: COPD Additional Family Medical History / Comment(s): Mother with history of COPD Physical Examination Vital Signs Pulse Resp BP Pulse Ox 08/09/19 11:10 71 6 L 156/81 96 Results Current Medications Generic Name Dose Route Start Last Admin Trade Name Freq PRN Reason Stop Dose Admin Sodium Chloride 1,000 mls @ 20 mls/hr 08/09/19 06:27 Saline 0.9% IV .Q24H ROHINI
[2019-08-09] MEDS ORDERED: LIDOCAINE 1% INJ 10MG/ML (20 ML MDV) SQ ONE (13:40)
[2019-08-09] MEDS ORDERED: HEPARIN SOD,PORK IN 0.45% NACL 25,000 UNIT in 0.45% NACL 1 250ML.BAG IV ONE (13:41)
[2019-08-09] MEDS ORDERED: HEPARIN SODIUM (1,000 UNIT/ML) 1,000 UNIT in SODIUM CHLORIDE 0.9% 1,000 ML IRRIGATION ONE ×2 (13:41→17:45)
[2019-08-09] MEDS ORDERED: ACETAMINOPHEN TAB 325 MG TAB PO PRN (18:10)
[2019-08-09] MEDS ORDERED: FUROSEMIDE 10 MG/ML 4 ML VIAL ONE (18:26)
[2019-08-09] MEDS ORDERED: HYDROcodone/APAP 5-325MG 1 EACH TAB PO PRN (18:28)
--- NOTE | 2019-08-09 18:46 | P.PRLE ---
RE: Ramy Jain Dear Liam Mccann underwent a detailed EP study and mapping of the left atrium. His pulmonary veins were completely isolated the ostial level but I really ablated them at an anterolateral level especially anteriorly for the right veins and posteriorly for the left-sided veins Thereafter roofline was also made. Following that I was able to induce mitral reentry and performed a successful ablation with complete bidirectional block I was not able to induce atrial fibrillation Hopefully he remains A. fib free thereafter Thank you for entrusting me with the care of the patient Warm regards Sincerely Medardo Camara
[2019-08-09] MEDS: ACETAMINOPHEN IV (For NPO) 1,000 MG in EMPTY BAG 1 BAG IVPB ONE ×2 (19:16→19:31)
[2019-08-09 19:56] LABS: Glucose,Whole Blood 164 mg/dL (75-99)
[2019-08-09] MEDS: APIXABAN 5 MG TAB PO SCH (20:39)
[2019-08-09] MEDS: FLECAINIDE 50 MG TAB PO SCH (20:39)
[2019-08-09] MEDS: CARVEDILOL 3.125 MG TAB PO SCH (20:39)
[2019-08-09] MEDS: metFORMIN 500 MG TAB PO SCH (20:40)
[2019-08-09] MEDS ORDERED: MONTELUKAST 10 MG TAB PO SCH (21:00)
[2019-08-09] MEDS ORDERED: ATORVASTATIN 20 MG TAB PO SCH (21:00)
[2019-08-09] MEDS ORDERED: BENZOCAINE/MENTHOL LOZENG 1 EACH LOZENGE MUCOUS MEM PRN (22:31)
[2019-08-10 00:07] VITALS: RESP 18
--- NOTE | 2019-08-10 06:57 | CE ---
CARDIAC ELECTROPHYSIOLOGY REPORT Mr. Jain has a history of atrial fibrillation and he has undergone successful cryoablation of the pulmonary veins with an atrial fibrillation free duration following this ablation for about 2 years. He recently went back into atrial fibrillation was very symptomatic with tiredness and fatigue and underwent electrical cardioversion. He was brought in for atrial fibrillation ablation to assess his pulmonary veins as well as look for extrapulmonary foci of atrial fibrillation. Patient was brought to the EP lab in a fasting state. Written informed consent was obtained prior to the procedure. The procedure was performed under general anesthesia. IV heparin was used. Venous sheaths were placed in the right and left femoral veins and via these diagnostic mapping and ablation catheter were placed. The patient was in sinus rhythm at the start of the study. ME interval 172 milliseconds, QRS 82 milliseconds, QT 397 milliseconds. His AH interval was 60 milliseconds, HV interval 61 milliseconds. Intracardiac echocardiography revealed biatrial enlargement. No thrombus in the right or left atrial appendage. Smoke was noted in the right atrium. No pericardial effusion was noted. LV function was normal. Right and left transseptal catheterization was performed. RA pressure 24/21/22 mmHg and LA pressure 23/14/19 mmHg. A long sheath was placed in the left atrium. A PentaRay catheter was placed in the left atrium and voltage mapping was performed. This revealed complete isolation of all pulmonary veins at the ostial level, but there was a gap in the derick on the right side. Hence, the right superior and right inferior pulmonary veins were further apart. In addition, the right-sided veins were quite large. Previously, his left-sided vein was fibrillating. At first after voltage mapping and RF ablation, an irrigated ablation catheter was placed and the right-sided pulmonary veins were ablated anteriorly at a much antral level close to the point of the transseptal. This line was made after identifying areas of fractionation along the anterior septum. The wide lumbee antral isolation was performed and the carinal portion showed complete exit block. Following that, an antral ablation was performed on the left-sided veins posteriorly since it was away from the esophagus. Complete exit block was also noted. After completion of wide lumbee antral isolation, the roof line was made. Linear ablation was performed. This took a very long time since he had a very enlarged left atrium but a complete line of block was made and bidirectional block was proven at the end of the procedure. This line took the longest in the entire procedure simply because of the size of the atrium and the line was made more anteriorly to avoid the esophagus. This was made from the anterior left superior pulmonary vein to the anterior right superior pulmonary vein. Following that, Isuprel was used in high doses to see if he would have induction of atrial fibrillation. No atrial fibrillation was noted. Following that, burst stimulation was performed from the coronary sinus poles and we were able to induce an eccentric atrial tachycardia. Entrainment in the mitral anulus area showed that this could be entrained from the mitral anulus. Previously the scar map had shown that there was ischemic area in the mitral anulus. The tachycardia was entrained within this isthmus and an RF line was made which resulted in termination of the tachycardia. However, this did not result in complete bidirectional block. Repeat voltage mapping was then performed and pacing maneuvers were performed on either side of the line and RF ablation was performed just above the original mitral isthmus line with resultant bidirectional block with isthmus conduction time of 213 milliseconds in either direction which demonstrated bidirectional block. Forty braga of power had to be used for this. The patient tolerated the procedure well without any acute complications. All catheters were removed from the left atrium and heparin was reversed and sheaths were removed. RESULT: Diagnostic EP study revealin. Isolation of the pulmonary veins from cryoablation from the previous cryoablation at an ostial level. 2. Antral level isolation of the pulmonary veins was performed as described above. 3. Linear ablation with roof line was made. 4. Atrial fibrillation could not be induced. 5. Mitral reentry could be induced with successful termination followed by demonstration of bidirectional block across the line with an isthmus conduction time of greater than 213 milliseconds. 6. Biatrial enlargement with normal left ventricular function. The patient tolerated the procedure well without any acute complications. PLAN: Continue current medications including Eliquis and continue low-dose flecainide. We will see him again in a week's time. MMODL / IJN: [id number] /
--- NOTE | 2019-08-10 07:53 | P.DS ---
Providers Attending physician: Medardo Camara Primary care physician: [facility] Course: Patient is doing well. He denies any chest discomfort no dizziness lightheadedness he is not short of breath. He has been walking up to the bathroom. Mildly tender right groin but no swelling no hematoma No dizziness no lightheadedness Blood pressure 108/73 mmHg normal respirations pulse rate in the 60s afebrile 98.2F Breath sounds are clear no rhonchi no crackles no adventitious sounds Normal heart sounds no murmurs no gallops. Abdomen soft nontender No lower extremity edema Impression Atrial fibrillation drug refractory refractory to successful on vein isolation in the past in 2017 Status post antral level isolation of the pulmonary veins, linear ablation along the LA roof and then induction of mitral reentry at EP study Successful ablation of mitral reentry with bidirectional block, isthmus conduction time 213 ms Hypertension Obesity Diabetes type 2 on metformin Suggest Continue ELIQUIS lifelong Resume all other cardiac medications and resume diabetes medications If he is stable today he will go home by 5 PM Groin sutures were removed I will see him again in about 1-2 weeks Patient Condition at Discharge: Stable Plan - Discharge Summary Discharge Rx Participant: No New Discharge Prescriptions: Continue Apixaban [Eliquis] 5 mg PO BID Citalopram Hydrobromide [CeleXA] 40 mg PO DAILY Aspirin 81 mg PO DAILY Spironolactone [Aldactone] 12.5 mg PO DAILY Carvedilol [Coreg] 3.125 mg PO BID Atorvastatin [Lipitor] 20 mg PO HS metFORMIN HCL 500 mg PO BID Montelukast [Singulair] 10 mg PO HS Lisinopril [Prinivil] 20 mg PO DAILY Flecainide [Tambocor] 25 mg PO Q12HR Discharge Medication List Apixaban [Eliquis] 5 mg PO BID 12/27/14 [History] Aspirin 81 mg PO DAILY 12/30/14 [History] Citalopram Hydrobromide [CeleXA] 40 mg PO DAILY 12/30/14 [History] Spironolactone [Aldactone] 12.5 mg PO DAILY 12/30/14 [History] Atorvastatin [Lipitor] 20 mg PO HS 05/12/16 [History] Carvedilol [Coreg] 3.125 mg PO BID 05/12/16 [History] metFORMIN HCL 500 mg PO BID 06/15/19 [History] Flecainide [Tambocor] 25 mg PO Q12HR 08/03/19 [History] Lisinopril [Prinivil] 20 mg PO DAILY 08/03/19 [History] Montelukast [Singulair] 10 mg PO HS 08/03/19 [History] Follow up Appointment(s)/Referral(s): Medardo Camara MD [STAFF PHYSICIAN] - 1 Week (follow up with Dr. Camara/Dot Locke/yAlin Mckee in 1-2 weeks) Activity/Diet/Wound Care/Special Instructions: Post EP study - Ablation instructions 1. Keep access sites dry for 2 days. 2. No heavy lifting or straining for 2 days. 3. Avoid bending the hips repeatedly for 2 days. 4. You may go up and down stairs slowly Call if the following is noted 1. Bleeding, increasing swelling or pain at the access sites. 2. Increasing chest discomfort, especially upon taking a deep breath. 3. Increasing shortness of breath, at rest or with exertion. 4. Undue cough / phlegm 5. Difficulty or pain while swallowing. 6. Pain or change in color in the extremities. 7. Fever, chills, rigors. 8. Increasing headache or neurologic symptoms. 9. Dizziness, fainting, palpitations Continue all cardiac medications including eliquis Discharge Disposition: HOME SELF-CARE
[2019-08-10] MEDS: APIXABAN 5 MG TAB PO SCH (08:08)
[2019-08-10] MEDS: CARVEDILOL 3.125 MG TAB PO SCH (08:09)
[2019-08-10] MEDS: FLECAINIDE 50 MG TAB PO SCH (08:09)
[2019-08-10] MEDS: metFORMIN 500 MG TAB PO SCH (08:14)
[2019-08-10] MEDS ORDERED: CITALOPRAM HYDROBROMIDE 20 MG TAB PO SCH (09:00)
[2019-08-10] MEDS ORDERED: SPIRONOLACTONE 25 MG TAB PO SCH (09:00)
[2019-08-10] MEDS ORDERED: LISINOPRIL 20 MG TAB PO SCH (09:00)
[2019-08-10] MEDS ORDERED: ASPIRIN 81 MG PO SCH (09:00)
[2019-08-10 11:40] LABS: Glucose,Whole Blood 119 mg/dL (75-99)
[2019-08-10 15:34] VITALS: BP 133/81; PULSE 71; TEMP 98.3
--- NOTE | 2019-08-15 13:17 | CDI ---
Outpatient Documentation Clarification Form Date: CDS/Science Analyst Name: Nena Kasper Phone: If any questions, call [facility] at [phone] Patient Name: Ramy Jain Admit Date: 08/09/19 Discharge Date: 08/10/19 ATTENTION: The [facility] Coding Staff appreciate your assistance in clarifying documentation. Please respond to the clarification below the line at the bottom and electronically sign. The [facility] Coding staff will review the response and follow-up if needed. Please note: Queries are made part of the Legal Health Record. If you have any questions, please contact the Auto [employer] Builder. Dear Dr. Camara, Please provide clarification as to what type of atrial fibrillation the patient has. The procedure note does not specify a type. The H&P documents persistent atrial fibrillation and the anesthesia record documents paroxysmal atrial fibrillation. Please clarify Thank you for your kind consideration. Please see Dr. Camara's dictation and document and code accordingly In future please follow the electrophysiology his opinion above a serum her anesthesiologists opinion regarding the cardiac diagnosis Thank you Dr. Camara Discussed with Silvana Henao the plant reliability engineer FELY
== END 2019-08-10 17:10 | disposition home or self-care (01) ==
LOC: CATHEP 10:52 → 1SOBS 18:43 → CATHEP 08-10 17:10
PROVIDERS: ATTEND Internal Medicine Clinical Cardiac Electrophysiology
DX: I48.1 Persistent atrial fibrillation (principal); I10 Essential (primary) hypertension; I42.8 Other cardiomyopathies; I49.5 Sick sinus syndrome; E11.9 Type 2 diabetes mellitus without complications; J45.909 Unspecified asthma, uncomplicated; G47.33 Obstructive sleep apnea (adult) (pediatric); Z99.89 Dependence on other enabling machines and devices; Z79.899 Other long term (current) drug therapy; H91.90 Unspecified hearing loss, unspecified ear; M19.90 Unspecified osteoarthritis, unspecified site; M51.26 Other intervertebral disc displacement, lumbar region; Z82.5 Family history of asthma and other chronic lower respiratory diseases; E78.5 Hyperlipidemia, unspecified; Z79.01 Long term (current) use of anticoagulants; Z79.84 Long term (current) use of oral hypoglycemic drugs; Z79.82 Long term (current) use of aspirin
CPT/HCPCS: 85347; 93623; 93662; 93613; 93656; C1769 ×5; C1894; C1730; C1731; C1759; C1893; C1732; J2250; J2720; J1644 ×3; J1940; J2710; J2001; J0131; J2370; J0330; J2704

== ENCOUNTER 2019-09-10 00:25 | Inpatient (IN) | payer OTHER, MEDICARE ==
[2019-09-10] MEDS ORDERED: ADENOSINE 3 MG/ML 2 ML VIAL IVP STA ×2 (01:05→01:10)
[2019-09-10] MEDS ORDERED: ASPIRIN 81 MG PO STA (01:12)
[2019-09-10] MEDS ORDERED: SODIUM CHLORIDE 0.9% 1,000 ML IV STA (01:12)
--- NOTE | 2019-09-10 01:16 | ED ---
General Adult HPI - General Chief complaint: Chest Pain Stated complaint: Chest pain Time Seen by Provider: 09/10/19 00:36 Source: patient, EMS Mode of arrival: EMS - History of Present Illness Initial comments: Dictation was produced using viVood dictation software. please excuse any grammatical, word or spelling errors. Chief Complaint: 74-year-old male past medical history of atrial fibrillation presents with chest pain and palpitations. History of Present Illness: A 84-year-old male presents today with chest pain and palpitations. Patient states his symptoms began earlier today. Patient states he had also some chest pain that spread from the middle of his chest out words. States the pain is constant and pressure-like. Patient has a history of atrial fibrillation. 6 weeks ago patient had a procedure for ablation surgery was performed for atrial fibrillation that is refractory to drugs. Currently on eliquis. The ROS documented in this emergency department record has been reviewed and confirmed by me. Those systems with pertinent positive or negative responses have been documented in the HPI. All other systems are other negative and/or noncontributory. PHYSICAL EXAM: General Impression: Alert and oriented x3, not in acute distress HEENT: Normocephalic atraumatic, extra-ocular movements intact, pupils equal and reactive to light bilaterally, mucous membranes moist. Cardiovascular: Tachycardic Chest: Lungs clear to auscultation bilaterally, no rhonchi, no wheeze, no rales Abdomen: Bowel sounds present, abdomen soft, non-tender, non-distended, no organomegaly Musculoskeletal: Pulses present and equal in all extremities, no peripheral edema Motor: no focal deficits noted Neurological: CN II-XII grossly intact, no focal motor or sensory deficits noted Skin: Intact with no visualized rashes Psych: Anxious ED course: 74 y Old male presents with chest pain palpitations. His upon arrival shows vital signs with a heart rate 142, worse vital signs within acceptable limits. Patient is placed in president celebrity acquistion. plasma processing centrifuge operator showed narrow complex tachydysrhythmia. EKG was obtained showing funny C sugges t supraventricular tachycardia. Patient had cardiac defibrillator pads placed. An attempt was made twice to convert patient's rhythm using adenosine. Both attempts were unsuccessful. Patient started on Cardizem. Patient given 10 mg bolus of Cardizem followed by infusion with adequate rate control. Repeat EKG shows irregularly irregular rhythm. Consistent with atrial flutter with variable block versus atrial fibrillation. QRS 102, QTc 462. No signs to suggest ischemia or infarction Laboratory evaluation obtained. Mild leukocytosis of 12.4 SECONDARY to stress. Coag panel unremarkable. Patient has mild anion gap patient given intravenous fluids. Patient resting comfortably at bedside is currently rate controlled. Magnesium is 1.5. Patient given parenteral magnesium. Discussed patient case with son physician Dr. Palma was went except patient's care. Patient received aspirin by EMS for complaint of chest pain. Patient states he is chest pain- free at this time. We will have cardiology consulted for his dysrhythmia. More history was obtained from patient. Patient states that he uses albuterol nebulizer prior to the onset of his symptoms. Child clinical presentation the patient has tachydysrhythmia induced by beta agonist. - Related Data Home Medications Medication Instructions Recorded Confirmed Apixaban [Eliquis] 5 mg PO BID 12/27/14 08/09/19 Aspirin 81 mg PO DAILY 12/30/14 08/09/19 Citalopram Hydrobromide [CeleXA] 40 mg PO DAILY 12/30/14 08/09/19 Spironolactone [Aldactone] 12.5 mg PO DAILY 12/30/14 08/09/19 Atorvastatin [Lipitor] 20 mg PO HS 05/12/16 08/09/19 Carvedilol [Coreg] 3.125 mg PO BID 05/12/16 08/09/19 metFORMIN HCL 500 mg PO BID 06/15/19 08/09/19 Flecainide [Tambocor] 25 mg PO Q12HR 08/03/19 08/09/19 Lisinopril [Prinivil] 20 mg PO DAILY 08/03/19 08/09/19 Montelukast [Singulair] 10 mg PO HS 08/03/19 08/09/19 Allergies Allergy/AdvReac Type Severity Reaction Status Date / Time No Known Allergies Allergy Verified 08/03/19 14:36 Review of Systems ROS Statement: Those systems with pertinent positive or pertinent negative responses have been documented in the HPI. ROS Other: All systems not noted in ROS Statement are negative. Past Medical History Past Medical History: Atrial Fibrillation, Asthma, Diabetes Mellitus, Hearing Disorder / Deafness, Hypertension, Musculoskeletal Disorder, Osteoarthritis (OA), Sleep Apnea/CPAP/BIPAP Additional Past Medical History / Comment(s): RUPTURED DISC L4 L5. SOB w/activity. Uses CPAP. Type 2 diabetes. LT SHOULDER PROBLEMS. SEE HISTORY AND PHYSICAL FOR CARDIAC HISTORY. History of Any Multi-Drug Resistant Organisms: None Reported Past Surgical History: Appendectomy, Cardiac Ablation Additional Past Surgical History / Comment(s): CATARACTS REMOVED. Cardioversion. Past Anesthesia/Blood Transfusion Reactions: No Reported Reaction Past Psychological History: PTSD Smoking Status: Never smoker Past Alcohol Use History: None Reported Past Drug Use History: None Reported - Past Family History Mother Family Medical History: COPD Additional Family Medical History / Comment(s): Mother with history of COPD Course Vital Signs 09/10/19 09/10/19 09/10/19 00:30 00:51 01:44 Temperature 98 F Pulse Rate 142 H 102 H Pulse Rate [ 145 H Exercise Manager ] Respiratory 20 20 Rate Blood Pressure 120/96 126/85 O2 Sat by Pulse 96 95 Oximetry 09/10/19 02:08 Temperature Pulse Rate 87 Pulse Rate [ Exercise Manager ] Respiratory 20 Rate Blood Pressure 127/81 O2 Sat by Pulse 96 Oximetry Medical Decision Making - Lab Data Result diagrams: 09/10/19 00:50 09/10/19 00:50 Lab Results 09/10/19 09/10/19 09/10/19 Range/Units 00:50 00:50 00:50 WBC 12.4 H (3.8-10.6) k/uL RBC 5.02 (4.30-5.90) m/uL Hgb 15.2 (13.0-17.5) gm/dL Hct 47.0 (39.0-53.0) % MCV 93.6 (80.0-100.0) fL MCH 30.3 (25.0-35.0) pg MCHC 32.3 (31.0-37.0) g/dL RDW 13.0 (11.5-15.5) % Plt Count 183 (150-450) k/uL Neutrophils % 77 % Lymphocytes % 9 % Monocytes % 7 % Eosinophils % 4 % Basophils % 1 % Neutrophils # 9.6 H (1.3-7.7) k/uL Lymphocytes # 1.1 (1.0-4.8) k/uL Monocytes # 0.9 (0-1.0) k/uL Eosinophils # 0.5 (0-0.7) k/uL Basophils # 0.1 (0-0.2) k/uL PT 11.1 (9.0-12.0) sec INR 1.0 (<1.2) APTT 28.5 (22.0-30.0) sec Sodium 138 (137-145) mmol/L Potassium 4.3 (3.5-5.1) mmol/L Chloride 105 (98-107) mmol/L Carbon Dioxide 20 L (22-30) mmol/L Anion Gap 13 mmol/L BUN 20 (9-20) mg/dL Creatinine 1.21 (0.66-1.25) mg/dL Est GFR (CKD-EPI)AfAm 69 (>60 ml/min/1.73 sqM) Est GFR (CKD-EPI)NonAf 60 (>60 ml/min/1.73 sqM) Glucose 156 H (74-99) mg/dL Calcium 8.8 (8.4-10.2) mg/dL Magnesium 1.5 L (1.6-2.3) mg/dL Total Bilirubin 0.6 (0.2-1.3) mg/dL AST 33 (17-59) U/L ALT 62 (21-72) U/L Alkaline Phosphatase 76 (38-126) U/L Troponin I (0.000-0.034) ng/mL Total Protein 6.7 (6.3-8.2) g/dL Albumin 3.9 (3.5-5.0) g/dL 09/10/19 Range/Units 00:50 WBC (3.8-10.6) k/uL RBC (4.30-5.90) m/uL Hgb (13.0-17.5) gm/dL Hct (39.0-53.0) % MCV (80.0-100.0) fL MCH (25.0-35.0) pg MCHC (31.0-37.0) g/dL RDW (11.5-15.5) % Plt Count (150-450) k/uL Neutrophils % % Lymphocytes % % Monocytes % % Eosinophils % % Basophils % % Neutrophils # (1.3-7.7) k/uL Lymphocytes # (1.0-4.8) k/uL Monocytes # (0-1.0) k/uL Eosinophils # (0-0.7) k/uL Basophils # (0-0.2) k/uL PT (9.0-12.0) sec INR (<1.2) APTT (22.0-30.0) sec Sodium (137-145) mmol/L Potassium (3.5-5.1) mmol/L Chloride (98-107) mmol/L Carbon Dioxide (22-30) mmol/L Anion Gap mmol/L BUN (9-20) mg/dL Creatinine (0.66-1.25) mg/dL Est GFR (CKD-EPI)AfAm (>60 ml/min/1.73 sqM) Est GFR (CKD-EPI)NonAf (>60 ml/min/1.73 sqM) Glucose (74-99) mg/dL Calcium (8.4-10.2) mg/dL Magnesium (1.6-2.3) mg/dL Total Bilirubin (0.2-1.3) mg/dL AST (17-59) U/L ALT (21-72) U/L Alkaline Phosphatase (38-126) U/L Troponin I <0.012 (0.000-0.034) ng/mL Total Protein (6.3-8.2) g/dL Albumin (3.5-5.0) g/dL Disposition Clinical Impression: Arrhythmia Disposition: ADMITTED IP TO THIS HOSP Condition: Fair Referrals: Liam Garcia MD [Primary Care Provider] - 1-2 days Decision Time: 02:13
[2019-09-10 01:34] LABS: Basophils # (A) 0.1 k/uL (0-0.2); Basophils % (A) 1 %; Eosinophils # (A) 0.5 k/uL (0-0.7); Eosinophils % (A) 4 %; HGB 15.2 gm/dL (13.0-17.5); Lymphocytes # (A) 1.1 k/uL (1.0-4.8); Lymphocytes % (A) 9 %; MCH 30.3 pg (25.0-35.0); MCHC 32.3 g/dL (31.0-37.0); MCV 93.6 fL (80.0-100.0); Mean Platelet Volume 7.2; Monocytes # (A) 0.9 k/uL (0-1.0); Monocytes % (A) 7 %; Neutrophils # (A) 9.6 k/uL (1.3-7.7); Neutrophils % (A) 77 %; Platelet Count 183 k/uL (150-450); RBC 5.02 m/uL (4.30-5.90); WBC 12.4 k/uL (3.8-10.6)
[2019-09-10] MEDS: DILTIAZEM 125 MG in SODIUM CHLORIDE 0.9% 100 ML IV SCH ×2 (01:35→17:43)
--- NOTE | 2019-09-10 01:35 | XR ---
EXAMINATION TYPE: XR chest 1V portable DATE OF EXAM: 09/10/2019 COMPARISON: 05/22/2019 HISTORY: Chest pain TECHNIQUE: Single frontal view of the chest is obtained. FINDINGS: There is mild atelectasis left lung base. Heart appears enlarged. There is elevated left d iaphragm. There are chest leads. There is no heart failure. IMPRESSION: Mild atelectasis left lung base unchanged. Chronic elevated left diaphragm.
[2019-09-10] MEDS ORDERED: DILTIAZEM DRIP BOLUS FROM BAG 1 MG SOLN IV ONE (01:38)
[2019-09-10 01:43] LABS: Albumin 3.9 g/dL (3.5-5.0); Calcium 8.8 mg/dL (8.4-10.2); Magnesium 1.5 mg/dL (1.6-2.3); Potassium 4.3 mmol/L (3.5-5.1); Total Bilirubin 0.6 mg/dL (0.2-1.3); Total Protein 6.7 g/dL (6.3-8.2)
[2019-09-10 01:49] LABS: Partial Thromboplastin Time 28.5 sec (22.0-30.0); Prothrombin Time 11.1 sec (9.0-12.0)
[2019-09-10] MEDS: MAGNESIUM SULFATE-D5W PMX 1 GM in DEXTROSE/WATER 1 100ML.BAG IVPB SCH ×2 (02:49→04:01)
[2019-09-10] MEDS ORDERED: SODIUM CHLORIDE 0.9% 1,000 ML IV SCH (03:00)
[2019-09-10] MEDS: INSULIN ASPART (NovoLOG) 100 UNIT/ML VIAL SQ SCH ×4 (06:43→21:29)
[2019-09-10 06:44] LABS: Glucose,Whole Blood 128 mg/dL (75-99)
[2019-09-10] MEDS: CARVEDILOL 3.125 MG TAB PO SCH ×2 (06:44→16:58)
--- NOTE | 2019-09-10 07:08 | P.HPIM ---
History of Present Illness H&P Date: 09/10/19 Chief Complaint: chest pain 74-year-old male with history of A. fib status post ablation 6 weeks ago He presents to the hospital with chest pain described as pressure like 8 out of 10 in severity central radiating outwards associated with feeling nauseated and sweating, he reports that pain is worse with deep breathing, however denies any fevers coughing or hemoptysis. this started earlier today around 10 PM when he started feeling some palpitations initially and symptoms got worse after after using albuterol inhaler as he thought he is having an asthma attack similar to a experienced back in April otherwise patient is compliant with his medications per his reports, denies any evidence of GI bleeding, denies any upper respiratory infection like symptoms, currently he is still having some chest discomfort with deep breaths but nothing compared to what he experienced initially when he came to Hospital. In the ED, EKG showed supraventricular tachycardia conversion using adenosine was attempted however failed later patient was started on Cardizem Review of Systems Pertinent positives as noted in HPI. All other systems were reviewed and are negative Past Medical History Past Medical History: Atrial Fibrillation, Asthma, Diabetes Mellitus, Hearing Disorder / Deafness, Hypertension, Musculoskeletal Disorder, Osteoarthritis (OA), Sleep Apnea/CPAP/BIPAP Additional Past Medical History / Comment(s): RUPTURED DISC L4 L5. SOB w/activity. Uses CPAP. Type 2 diabetes. LT SHOULDER PROBLEMS. SEE HISTORY AND PHYSICAL FOR CARDIAC HISTORY. History of Any Multi-Drug Resistant Organisms: None Reported Past Surgical History: Appendectomy, Cardiac Ablation Additional Past Surgical History / Comment(s): CATARACTS REMOVED. Cardioversion. Past Anesthesia/Blood Transfusion Reactions: No Reported Reaction Past Psychological History: PTSD Additional Psychological History / Comment(s): Ansley Zambrano Smoking Status: Never smoker Past Alcohol Use History: None Reported Past Drug Use History: None Reported - Past Family History Mother Family Medical History: COPD Additional Family Medical History / Comment(s): Mother with history of COPD Medications and Allergies Home Medications Medication Instructions Recorded Confirmed Type Apixaban [Eliquis] 5 mg PO BID 12/27/14 09/10/19 History Aspirin 81 mg PO DAILY 12/30/14 09/10/19 History Citalopram Hydrobromide [CeleXA] 40 mg PO DAILY 12/30/14 09/10/19 History Spironolactone [Aldactone] 12.5 mg PO DAILY 12/30/14 09/10/19 History Atorvastatin [Lipitor] 20 mg PO HS 05/12/16 09/10/19 History Carvedilol [Coreg] 3.125 mg PO BID 05/12/16 09/10/19 History metFORMIN HCL 500 mg PO BID 06/15/19 09/10/19 History Flecainide [Tambocor] 25 mg PO Q12HR 08/03/19 09/10/19 History Lisinopril [Prinivil] 20 mg PO DAILY 08/03/19 09/10/19 History Montelukast [Singulair] 10 mg PO HS 08/03/19 09/10/19 History Allergies Allergy/AdvReac Type Severity Reaction Status Date / Time No Known Allergies Allergy Verified 08/03/19 14:36 Physical Exam Vitals: Vital Signs Temp Pulse Pulse Resp BP BP Pulse Ox 09/10/19 04:00 98.5 F 94 18 132/81 96 09/10/19 02:08 87 20 127/81 96 09/10/19 01:44 102 H 20 126/85 95 09/10/19 00:51 145 H 09/10/19 00:30 98 F 142 H 20 120/96 96 Intake and Output 09/09/19 09/09/19 09/10/19 14:59 22:59 06:59 Other: Voiding Method Urinal # Voids 1 Weight 134 kg Constitutional: No acute distress, conversant, pleasant Eyes: Anicteric sclerae, moist conjunctiva, no lid-lag Pupils equal round reactive to light ENMT: NC/AT Oropharynx clear, no erythema, exudates Neck: Supple, FROM, no masses, or JVD No carotid bruits No thyromegaly Lungs: Clear to auscultation Clear to percussion Normal respiratory effort, no accessory muscle use Cardiovascular: Heart irregular in rate and rhythm, No murmurs, gallops, or rubs No peripheral edema Abdominal: Soft Nontender, no guarding, rebound or rigidity Abdomen moving with respiration Normoactive bowel sounds No hepatomegaly, No splenomegaly No palpable mass No abdominal wall hernia noted Skin: Normal temperature, tone, texture, turgor No induration No subcutaneous nodules No rash, lesions No ulcers Extremities: No digital cyanosis No clubbing Pedal pulses intact and symmetrical Radial pulses intact and symmetrical No calf tenderness Psychiatric: Alert and oriented to person, place and time Appropriate affect fair judgement Neuro Muscles Strength 5/5 in all 4 extremities Sensation to light touch grossly present throughout Cranial nerves II-XII grossly intact No focal sensory deficits Lymphatics: no palpable cervical or supraclavicular , or inguinal lymph nodes Results CBC & Chem 7: 09/10/19 00:50 09/10/19 00:50 Labs: Abnormal Lab Results - Last 24 Hours (Table) 09/10/19 09/10/19 Range/Units 00:50 00:50 WBC 12.4 H (3.8-10.6) k/uL Neutrophils # 9.6 H (1.3-7.7) k/uL Carbon Dioxide 20 L (22-30) mmol/L Glucose 156 H (74-99) mg/dL Magnesium 1.5 L (1.6-2.3) mg/dL Thrombosis Risk Factor Assmnt - Choose All That Apply Each Risk Factor Represents 2 Points: Age 61-74 years Thrombosis Risk Factor Assessment Total Risk Factor Score: 2 Thrombosis Risk Factor Assessment Level: Low Risk Assessment and Plan Assessment: 74-year-old male history of A. fib diabetes patient presented with palpitations and chest pain found to be in A. fib with RVR patient is status post ablation 6 weeks ago due to being refractory to medications Patient admitted as an observation with anticipated length of stay less than 2 midnights Plan: chest pain and palpitations secondary to A. fib with RVR, status post ablation 6 weeks ago Hypomagnesemia Patient failed conversion using edema seen Started on Cardizem Cardiology consult Follow-up labs Replace magnesium Cardiac monitoring continue Eliquis chronic conditions Diabetes mellitus insulin sliding scale Hypertension continue home meds Preformed a thorough record review from recent hospitalization status post ablation 6 weeks ago CODE STATUS:full code Discussed with: Patient, ER, RN Anticipated length of stay less than [address]: home A total of 60 minutes was spent on the care of this complex patient more than 50% of the time was spent in counseling and care coordination.
[2019-09-10] MEDS: LISINOPRIL 20 MG TAB PO SCH (08:24)
[2019-09-10] MEDS: SPIRONOLACTONE 25 MG TAB PO SCH (08:24)
[2019-09-10] MEDS: APIXABAN 5 MG TAB PO SCH ×2 (08:24→20:36)
[2019-09-10] MEDS: ALPRAZolam 0.5 MG TAB PO PRN ×2 (08:24→20:41)
[2019-09-10] MEDS ORDERED: CITALOPRAM HYDROBROMIDE 20 MG TAB PO SCH (09:00)
[2019-09-10] MEDS ORDERED: FLECAINIDE 50 MG TAB PO SCH (09:00)
[2019-09-10 12:03] LABS: Glucose,Whole Blood 147 mg/dL (75-99)
--- NOTE | 2019-09-10 14:47 | P.CRDCN ---
<Dot Locke - Last Filed: 09/10/19 14:20> History of Present Illness History of present illness: This is Dot Locke PA-C dictating a consult on this patient The patient was interviewed and examined by me as well as by Dr. Camara Case discussed with Dr. Camara and he agrees with the plan of care IMPRESSION / ASSESSMENT: Persistent symtomatic atrial fibrillation status post multiple ablations, failed flecainide Asthma Diabetes history of cardiomyopathy, EF 50-55% on most recent echo PLAN: Obtain TSH Repeat echocardiogram Stop flecainide Will initiate dofetilide 250 g twice a day tomorrow morning Dr. Camara spoke with the patient's primary care doctor and he will stop his citalopram and start Sertraline to avoid interactions with dofetilide HPI Patient is a 74-year-old male with a past medical history of persistent atrial fibrillation status post ablation, asthma, cardiomyopathy, diabetes who presented with complaints of chest discomfort. Patient states he was at home when he developed chest discomfort which he described as a chest pressure in the center of his chest. The pain was worse with coughing as well as with inspiration. He believed it was his asthma so he used his inhaler which did not help. He subsequently developed palpitations. Upon admission his EKG showed atrial tachycardia, ventricular rate 143 bpm. Chest x-ray showed no acute process. He was given adenosine in the ER which did not terminate the tachycardia. He was subsequently started on IV Cardizem. Patient seen and examined sitting in bed. Continues to have some chest discomfort. Denies shortness of breath. No dizziness or lightheadedness. ROS: No fevers, chills or rigors, Positive for cough no nausea, vomiting or diarrhea, no hematuria, dysuria, no musculoskeletal complaints, no strokes or seizures, no skin lesions. EXAMINATION: Temperature 99.1F, pulse 67, respirations 20, blood pressure 121/77, oxygen saturation 96% on room air Patient seen and examined resting in bed, in no acute distress Lungs are clear to auscultation bilaterally, no wheezing rhonchi or crackles Heart is irregular, no murmurs noted Chest is nontender to palpation No elevated JVD No lower extremity edema REVIEW OF LABS, ECG & MEDICAL DATA WBC 12.4, hemoglobin 15.2, platelets 183, potassium 4.3, BUN 20, creatinine 1.21, magnesium 2.2 Troponin negative 3 Echocardiogram in April 2019 showed EF 50-55% Past Medical History Past Medical History: Atrial Fibrillation, Asthma, Diabetes Mellitus, Hearing Disorder / Deafness, Hypertension, Musculoskeletal Disorder, Osteoarthritis (OA), Sleep Apnea/CPAP/BIPAP Additional Past Medical History / Comment(s): RUPTURED DISC L4 L5. SOB w/activity. Uses CPAP. Type 2 diabetes. LT SHOULDER PROBLEMS. SEE HISTORY AND PHYSICAL FOR CARDIAC HISTORY. History of Any Multi-Drug Resistant Organisms: None Reported Past Surgical History: Appendectomy, Cardiac Ablation Additional Past Surgical History / Comment(s): CATARACTS REMOVED. Cardioversion. Past Anesthesia/Blood Transfusion Reactions: No Reported Reaction Past Psychological History: PTSD Additional Psychological History / Comment(s): Ansley Zambrano Smoking Status: Never smoker Past Alcohol Use History: None Reported Past Drug Use History: None Reported - Past Family History Mother Family Medical History: COPD Additional Family Medical History / Comment(s): Mother with history of COPD Medications and Allergies Home Medications Medication Instructions Recorded Confirmed Type Apixaban [Eliquis] 5 mg PO BID 12/27/14 09/10/19 History Aspirin 81 mg PO DAILY 12/30/14 09/10/19 History Citalopram Hydrobromide [CeleXA] 40 mg PO DAILY 12/30/14 09/10/19 History Spironolactone [Aldactone] 12.5 mg PO DAILY 12/30/14 09/10/19 History Atorvastatin [Lipitor] 20 mg PO HS 05/12/16 09/10/19 History Carvedilol [Coreg] 3.125 mg PO BID 05/12/16 09/10/19 History metFORMIN HCL 500 mg PO BID 06/15/19 09/10/19 History Flecainide [Tambocor] 25 mg PO Q12HR 08/03/19 09/10/19 History Lisinopril [Prinivil] 20 mg PO DAILY 08/03/19 09/10/19 History Montelukast [Singulair] 10 mg PO HS 08/03/19 09/10/19 History Allergies Allergy/AdvReac Type Severity Reaction Status Date / Time No Known Allergies Allergy Verified 09/10/19 07:56 Physical Exam Vitals: Vital Signs Temp Pulse Pulse Resp BP BP Pulse Ox 09/10/19 11:51 98.5 F 70 20 122/76 95 09/10/19 08:00 99.1 F 67 20 121/77 96 09/10/19 04:00 98.5 F 94 18 132/81 96 09/10/19 02:08 87 20 127/81 96 09/10/19 01:44 102 H 20 126/85 95 09/10/19 00:51 145 H 09/10/19 00:30 98 F 142 H 20 120/96 96 Intake and Output 09/09/19 09/10/19 09/10/19 22:59 06:59 14:59 Intake Total 1080 Balance 1080 Intake: Intake, IV Titration 840 Amount Diltiazem 125 mg In 40 Sodium Chloride 0.9% 100 ml @ 10 MG/HR 10 mls/hr IV .[id number] [facility] Rx#: [id number] Sodium Chloride 0.9% 1, 800 000 ml @ 100 mls/hr IV . Q10H [facility] Rx#:[id number] Oral 240 Other: Voiding Method Urinal # Voids 1 Weight 134 kg Results 09/10/19 00:50 09/10/19 00:50 Cardiac Enzymes 09/10/19 09/10/19 09/10/19 Range/Units 00:50 00:50 06:12 AST 33 (17-59) U/L Troponin I <0.012 <0.012 (0.000-0.034) ng/mL 09/10/19 Range/Units 13:03 AST (17-59) U/L Troponin I <0.012 (0.000-0.034) ng/mL Coagulation 09/10/19 Range/Units 00:50 PT 11.1 (9.0-12.0) sec APTT 28.5 (22.0-30.0) sec CBC 09/10/19 Range/Units 00:50 WBC 12.4 H (3.8-10.6) k/uL RBC 5.02 (4.30-5.90) m/uL Hgb 15.2 (13.0-17.5) gm/dL Hct 47.0 (39.0-53.0) % Plt Count 183 (150-450) k/uL Comprehensive Metabolic Panel 09/10/19 Range/Units 00:50 Sodium 138 (137-145) mmol/L Potassium 4.3 (3.5-5.1) mmol/L Chloride 105 (98-107) mmol/L Carbon Dioxide 20 L (22-30) mmol/L BUN 20 (9-20) mg/dL Creatinine 1.21 (0.66-1.25) mg/dL Glucose 156 H (74-99) mg/dL Calcium 8.8 (8.4-10.2) mg/dL AST 33 (17-59) U/L ALT 62 (21-72) U/L Alkaline Phosphatase 76 (38-126) U/L Total Protein 6.7 (6.3-8.2) g/dL Albumin 3.9 (3.5-5.0) g/dL Current Medications Generic Name Dose Route Start Last Admin Trade Name Freq PRN Reason Stop Dose Admin Alprazolam 0.5 mg 09/10/19 07:06 09/10/19 08:24 Xanax PO 0.5 mg TID PRN Administration Anxiety Apixaban 5 mg 09/10/19 09:00 09/10/19 08:24 Eliquis PO 5 mg BID [facility] Administration Aspirin 81 mg 09/11/19 09:00 Aspirin PO DAILY [facility] Atorvastatin Calcium 20 mg 09/10/19 21:00 Lipitor PO HS [facility] Carvedilol 3.125 mg 09/10/19 07:30 09/10/19 06:44 Coreg PO 3.125 mg AC-BID [facility] Administration Diltiazem HCl 125 mg/ Sodium 125 mls @ 10 mls/hr 09/10/19 01:15 09/10/19 01:35 Chloride IV 5 mg/hr .[id number] [facility] 5 mls/hr Administration 10 MG/HR Insulin Aspart 0 unit 09/10/19 07:30 09/10/19 12:16 Novolog SQ 1 unit ACHS [facility] Administration Protocol Lisinopril 20 mg 09/10/19 09:00 09/10/19 08:24 Zestril PO 20 mg DAILY [facility] Administration Montelukast Sodium 10 mg 09/10/19 21:00 Singulair PO HS [facility] Nitroglycerin 0.4 mg 09/10/19 02:09 Nitrostat SUBLINGUAL Q5M PRN Chest Pain Sertraline HCl 100 mg 09/11/19 09:00 Zoloft PO DAILY [facility] Spironolactone 12.5 mg 09/10/19 09:00 09/10/19 08:24 Aldactone PO 12.5 mg DAILY [facility] Administration Intake and Output 09/09/19 09/10/19 09/10/19 22:59 06:59 14:59 Intake Total 1080 Balance 1080 Intake: Intake, IV Titration 840 Amount Diltiazem 125 mg In 40 Sodium Chloride 0.9% 100 ml @ 10 MG/HR 10 mls/hr IV .[id number] [facility] Rx#: [id number] Sodium Chloride 0.9% 1, 800 000 ml @ 100 mls/hr IV . Q10H [facility] Rx#:[id number] Oral 240 Other: Voiding Method Urinal # Voids 1 Weight 134 kg 09/10/19 00:50 09/10/19 00:50 <Medardo Camara - Last Filed: 09/10/19 16:43> History of Present Illness History of present illness: Patient evaluated with Duyen Locke Discussed with Dr. Garcia He underwent successful A. fib ablation with termination of his atrial tachycardia. He underwent delayed ablation in the roof as well as mitral annulus ablation. He had mitral reentry finally and he underwent successful ablation He comes back with A. fib with a very rapid atrial tachycardia at about 140 ms with RVR He also has underlying sick sinus syndrome After detailed discussion the patient decided to start him on dofetilide 250 g twice daily while as an inpatient He is on Celexa 40 mg by mouth daily which has been discontinued Is being switched to sertraline Flecainide has been discontinued We will start dofetilide tomorrow morning , 250 mcg x1 Physical Exam Vitals: Vital Signs Temp Pulse Pulse Resp BP BP Pulse Ox 09/10/19 15:44 98.7 F 70 20 143/82 96 09/10/19 11:51 98.5 F 70 20 122/76 95 09/10/19 08:00 99.1 F 67 20 121/77 96 09/10/19 04:00 98.5 F 94 18 132/81 96 09/10/19 02:08 87 20 127/81 96 09/10/19 01:44 102 H 20 126/85 95 09/10/19 00:51 145 H 09/10/19 00:30 98 F 142 H 20 120/96 96 Intake and Output 09/10/19 09/10/19 09/10/19 06:59 14:59 22:59 Intake Total 1080 Balance 1080 Intake: Intake, IV Titration 840 Amount Diltiazem 125 mg In 40 Sodium Chloride 0.9% 100 ml @ 10 MG/HR 10 mls/hr IV .[id number] [facility] Rx#: [id number] Sodium Chloride 0.9% 1, 800 000 ml @ 100 mls/hr IV . Q10H [facility] Rx#:[id number] Oral 240 Other: Voiding Method Urinal # Voids 1 Weight 134 kg Results 09/10/19 00:50 09/10/19 00:50 Cardiac Enzymes 09/10/19 09/10/19 09/10/19 Range/Units 00:50 00:50 06:12 AST 33 (17-59) U/L Troponin I <0.012 <0.012 (0.000-0.034) ng/mL 09/10/19 Range/Units 13:03 AST (17-59) U/L Troponin I <0.012 (0.000-0.034) ng/mL Coagulation 09/10/19 Range/Units 00:50 PT 11.1 (9.0-12.0) sec APTT 28.5 (22.0-30.0) sec CBC 09/10/19 Range/Units 00:50 WBC 12.4 H (3.8-10.6) k/uL RBC 5.02 (4.30-5.90) m/uL Hgb 15.2 (13.0-17.5) gm/dL Hct 47.0 (39.0-53.0) % Plt Count 183 (150-450) k/uL Comprehensive Metabolic Panel 09/10/19 Range/Units 00:50 Sodium 138 (137-145) mmol/L Potassium 4.3 (3.5-5.1) mmol/L Chloride 105 (98-107) mmol/L Carbon Dioxide 20 L (22-30) mmol/L BUN 20 (9-20) mg/dL Creatinine 1.21 (0.66-1.25) mg/dL Glucose 156 H (74-99) mg/dL Calcium 8.8 (8.4-10.2) mg/dL AST 33 (17-59) U/L ALT 62 (21-72) U/L Alkaline Phosphatase 76 (38-126) U/L Total Protein 6.7 (6.3-8.2) g/dL Albumin 3.9 (3.5-5.0) g/dL Current Medications Generic Name Dose Route Start Last Admin Trade Name Freq PRN Reason Stop Dose Admin Alprazolam 0.5 mg 09/10/19 07:06 09/10/19 08:24 Xanax PO 0.5 mg TID PRN Administration Anxiety Apixaban 5 mg 09/10/19 09:00 09/10/19 08:24 Eliquis PO 5 mg BID [facility] Administration Aspirin 81 mg 09/11/19 09:00 Aspirin PO DAILY [facility] Atorvastatin Calcium 20 mg 09/10/19 21:00 Lipitor PO HS [facility] Carvedilol 3.125 mg 09/10/19 07:30 09/10/19 06:44 Coreg PO 3.125 mg AC-BID [facility] Administration Dofetilide 250 mcg 09/11/19 06:00 Tikosyn PO 09/11/19 06:01 ONCE ONE Diltiazem HCl 125 mg/ Sodium 125 mls @ 10 mls/hr 09/10/19 01:15 09/10/19 01:35 Chloride IV 5 mg/hr .[id number] [facility] 5 mls/hr Administration 10 MG/HR Insulin Aspart 0 unit 09/10/19 07:30 09/10/19 12:16 Novolog SQ 1 unit ACHS [facility] Administration Protocol Lisinopril 20 mg 09/10/19 09:00 09/10/19 08:24 Zestril PO 20 mg DAILY [facility] Administration Montelukast Sodium 10 mg 09/10/19 21:00 Singulair PO HS [facility] Nitroglycerin 0.4 mg 09/10/19 02:09 Nitrostat SUBLINGUAL Q5M PRN Chest Pain Sertraline HCl 100 mg 09/11/19 09:00 Zoloft PO DAILY [facility] Spironolactone 12.5 mg 09/10/19 09:00 09/10/19 08:24 Aldactone PO 12.5 mg DAILY [facility] Administration Intake and Output 09/10/19 09/10/19 09/10/19 06:59 14:59 22:59 Intake Total 1080 Balance 1080 Intake: Intake, IV Titration 840 Amount Diltiazem 125 mg In 40 Sodium Chloride 0.9% 100 ml @ 10 MG/HR 10 mls/hr IV .[id number] [facility] Rx#: [id number] Sodium Chloride 0.9% 1, 800 000 ml @ 100 mls/hr IV . Q10H [facility] Rx#:[id number] Oral 240 Other: Voiding Method Urinal # Voids 1 Weight 134 kg 09/10/19 00:50 09/10/19 00:50
[2019-09-10 16:41] LABS: Glucose,Whole Blood 115 mg/dL (75-99)
[2019-09-10] MEDS: ATORVASTATIN 20 MG TAB PO SCH (20:36)
[2019-09-10] MEDS: MONTELUKAST 10 MG TAB PO SCH (20:36)
[2019-09-10 20:56] LABS: Glucose,Whole Blood 113 mg/dL (75-99)
[2019-09-10] MEDS ORDERED: MAGNESIUM SULFATE-D5W PMX 1 GM in DEXTROSE/WATER 1 100ML.BAG IVPB ONE (21:27)
[2019-09-11] MEDS: DILTIAZEM 125 MG in SODIUM CHLORIDE 0.9% 100 ML IV SCH ×2 (05:05→13:48)
[2019-09-11] MEDS ORDERED: DOFETILIDE 250 MCG CAP PO ONE (06:00)
[2019-09-11 06:30] LABS: Magnesium 1.9 mg/dL (1.6-2.3); Potassium 4.3 mmol/L (3.5-5.1)
[2019-09-11 06:37] LABS: Glucose,Whole Blood 126 mg/dL (75-99)
[2019-09-11] MEDS: INSULIN ASPART (NovoLOG) 100 UNIT/ML VIAL SQ SCH ×4 (06:39→20:50)
[2019-09-11] MEDS: CARVEDILOL 3.125 MG TAB PO SCH ×2 (06:40→18:04)
[2019-09-11] MEDS: SPIRONOLACTONE 25 MG TAB PO SCH (08:58)
[2019-09-11] MEDS: LISINOPRIL 20 MG TAB PO SCH (08:59)
[2019-09-11] MEDS: ASPIRIN 81 MG PO SCH (08:59)
[2019-09-11] MEDS: SERTRALINE 100 MG TAB PO SCH (08:59)
[2019-09-11] MEDS: APIXABAN 5 MG TAB PO SCH ×2 (08:59→20:49)
[2019-09-11] MEDS: ALPRAZolam 0.5 MG TAB PO PRN ×2 (08:59→20:49)
[2019-09-11] MEDS ORDERED: ASPIRIN 325 MG TAB PO SCH (09:00)
[2019-09-11] MEDS ORDERED: KETOROLAC 30 MG/ML 1 ML VIAL IVP STA (11:40)
--- NOTE | 2019-09-11 11:46 | P.PN ---
Subjective Progress Note Date: 09/11/19 Principal diagnosis: Atrial fibrillation Patient was seen and examined. No acute events overnight. Patient reports left-sided chest pain that is pleuritic in nature radiates to the left shoulder. Telemetry shows a regular heart rate around 100 bpm. He denies any shortness of breath or palpitations. No nausea or vomiting. No fever or chills. Objective - Vital Signs Vital signs: Vital Signs Temp 97.7 F 09/11/19 04:00 Pulse 78 09/11/19 04:00 Resp 18 09/11/19 04:00 BP 123/89 09/11/19 04:00 Pulse Ox 97 09/11/19 04:00 Intake & Output 09/10/19 09/11/19 09/11/19 18:59 06:59 18:59 Intake Total 1640.667 200 Output Total 1600 900 Balance 1640.667 -1600 -700 Weight 125.1 kg Intake: Intake, IV Titration 920.667 Amount Diltiazem 125 mg In 120.667 Sodium Chloride 0.9% 100 ml @ 10 MG/HR 10 mls/hr IV .[id number] [facility] Rx#: [id number] Sodium Chloride 0.9% 1, 800 000 ml @ 100 mls/hr IV . Q10H [facility] Rx#:[id number] Oral 720 200 Output: Urine 1600 900 Other: Voiding Method Urinal - Exam General: [non toxic], [no distress], [appears at stated age] Derm: [warm], [dry] Head: [atraumatic], [normocephalic], [symmetric] Eyes: [EOMI], [no lid lag], [anicteric sclera] Mouth: [no lip lesion], [mucus membranes moist] Cardiovascular: [S1S2 reg], [irregularly irregular], [positive DP pulse bilateral], Lungs: [CTA bilateral], [no rhonchi, no rales] , [no accessory muscle use] Abdominal: [soft], [ nontender to palpation], [no guarding], [no appreciable organomegaly] Ext: [no gross muscle atrophy], [no edema], [no contractures] Neuro: [no focal neuro deficits] Psych: [Alert], [oriented], [appropriate affect] - Labs CBC & Chem 7: 09/10/19 00:50 09/11/19 05:58 Labs: Abnormal Lab Results - Last 24 Hours (Table) 09/10/19 09/10/19 09/10/19 Range/Units 12:02 16:40 20:55 Glucose (74-99) mg/dL POC Glucose (mg/dL) 147 H 115 H 113 H (75-99) mg/dL HDL Cholesterol (40-60) mg/dL 09/11/19 09/11/19 Range/Units 05:58 06:35 Glucose 133 H (74-99) mg/dL POC Glucose (mg/dL) 126 H (75-99) mg/dL HDL Cholesterol 39 L (40-60) mg/dL Assessment and Plan Assessment: Assessment and plan Atrial fibrillation post multiple ablation failed flecainide Chest pain, pleuritic chronic conditions Leukocytosis Diabetes mellitus with hyperglycemia Chronic conditions: Stable asthma, hypertension, sleep apnea Plans: Started on Tikosyn 150 g this morning. Continue Coreg 3.125 mg by mouth twice a day. Anticoagulation with Eliquis. Telemetry monitoring. Keep potassium greater than 4 and radiation greater than 2. Follow echocardiogram. Follow-up cardiology consultation. Chest x-ray shows atelectasis. Troponin less than 0.012, ACS ruled out. Plans: 1 time dose of Toradol. Incentive spirometer. Leukocytosis of 12.4 with neutrophilia. Chest x-ray shows no pneumonia. Patient is afebrile. Plans: Likely noninfectious. Likely reactive. Repeat CBC in the morning. [id number] glucose 133. Plans: Insulin sliding-scale. Regular Accu-Cheks. Hypoglycemic precautions. [As per cardiology, patient to be titrated on Tikosyn. Will likely stay until Tuesday.]
--- NOTE | 2019-09-11 11:52 | ECHOF ---
Referral Reason:cp MEASUREMENTS -------- HEIGHT: 180.3 cm WEIGHT: 133.8 kg BP: Ao Diam: 3.9 cm (2.0 - 3.7) AV Cusp: 2.1 cm (1.5 - 2.6) LA Diam: 3.8 cm (2.7 - 3.8) MV EXCURSION: 25.597 mm (> 18.000) MV EF SLOPE: 133 mm/s (70 - 150) EPSS: 0.3 cm RAP: 5.00 mmHg RVSP: 8.15 mmHg FINDINGS -------- Atrial fibrillation. This was a technically difficult study with suboptimal views. Limited Study Grossly normal LV size and systolic function. Unable to comment on regional wall motion. The RV was not well visualized. The left atrium was not well visualized. The right atrium was not well visualized. 5.0mg of Lumason was utilized for enhancement of images The aortic valve was not well visualized. The mitral valve was not well visualized. The tricuspid valve was not well visualized. The pulmonic valve was not well visualized. There is no pericardial effusion. CONCLUSIONS -------- 1. Atrial fibrillation. 2. This was a technically difficult study with suboptimal views. 3. Limited Study 4. Grossly normal LV size and systolic function. Unable to comment on regional wall motion. 5. The RV was not well visualized. 6. The left atrium was not well visualized. 7. The right atrium was not well visualized. 8. 5.0mg of Lumason was utilized for enhancement of images 9. The aortic valve was not well visualized. 10. The mitral valve was not well visualized. 11. The tricuspid valve was not well visualized. 12. The pulmonic valve was not well visualized. 13. There is no pericardial effusion. COUNTRY SINGER: Donna Estes [facility] [place]
[2019-09-11 12:03] LABS: Glucose,Whole Blood 133 mg/dL (75-99)
--- NOTE | 2019-09-11 12:26 | P.PN ---
Subjective This is Dot Locke PA-C dictating a progress note on this patient The patient was interviewed and examined by me as well as by Dr. Camara Case discussed with Dr. Camara and he agrees with the plan of care IMPRESSION / ASSESSMENT: Persistent symptomatic atrial fibrillation status post multiple ablations, currently in atrial tachycardia with controlled ventricular response History of cardiomyopathy, most recent echo showing grossly normal LV size and function Asthma Diabetes PLAN: Increase spironolactone to 25 mg start magnesium supplement Continue dofetilide 250 g twice daily Continue to monitor EKGs for QT prolongation Continue to monitor telemetry Continue daily BMPs and magnesium HPI/interval history Patient is a 74-year-old male with a past medical history of persistent atrial fibrillation status post multiple ablations, asthma, cardiomyopathy, diabetes who presented with complaints of chest discomfort. He was found to be in an atrial tachycardia RVR. He was started on IV Cardizem. This morning we started him on dofetilide 250 g twice daily. Subsequent EKG shows atrial tachycardia with a cycle length of 240 ms, absolute QT around 400 ms. Patient seen and examined sitting at the side of the bed. Continues to complain of chest discomfort with deep inspiration. He is also complaining of pain in the left shoulder. He also has shortness of breath on exertion. EXAMINATION Temperature 97.7F, pulse 78, respirations 18, blood pressure 123/89, oxygen saturation 97% on 2 L nasal cannula Patient seen and examined sitting up at the side of the bed, in no acute distress Breath sounds with few scattered crackles at the bases, no wheezing or rhonchi Heart is irregular, no murmurs noted No elevated JVD No lower extremity edema REVIEW OF LABS, ECG Potassium 4.3, BUN 15, creatinine 0.98, magnesium 1.9 TSH within normal limits at 1.8 Echocardiogram shows grossly normal LV size and systolic function but was a technically difficult study with suboptimal views Objective - Vital Signs Vital signs: Vital Signs Temp 97.7 F 09/11/19 04:00 Pulse 78 09/11/19 04:00 Resp 18 09/11/19 04:00 BP 123/89 09/11/19 04:00 Pulse Ox 97 09/11/19 04:00 Intake & Output 09/10/19 09/11/19 09/11/19 18:59 06:59 18:59 Intake Total 1640.667 200 Output Total 1600 900 Balance 1640.193 -1600 700 Weight 125.1 kg Intake: Intake, IV Titration 920.667 Amount Diltiazem 125 mg In 120.667 Sodium Chloride 0.9% 100 ml @ 10 MG/HR 10 mls/hr IV .[id number] [facility] Rx#: [id number] Sodium Chloride 0.9% 1, 800 000 ml @ 100 mls/hr IV . Q10H [facility] Rx#:[id number] Oral 720 200 Output: Urine 1600 900 Other: Voiding Method Urinal - Labs CBC & Chem 7: 09/10/19 00:50 09/11/19 05:58 Labs: Abnormal Lab Results - Last 24 Hours (Table) 09/10/19 09/10/19 09/11/19 Range/Units 16:40 20:55 05:58 Glucose 133 H (74-99) mg/dL POC Glucose (mg/dL) 115 H 113 H (75-99) mg/dL HDL Cholesterol 39 L (40-60) mg/dL 09/11/19 09/11/19 Range/Units 06:35 11:54 Glucose (74-99) mg/dL POC Glucose (mg/dL) 126 H 133 H (75-99) mg/dL HDL Cholesterol (40-60) mg/dL
[2019-09-11] MEDS: NITROGLYCERIN SL TABS 0.4 MG TAB SUBLINGUAL PRN ×2 (12:55→12:59)
[2019-09-11 17:06] LABS: Glucose,Whole Blood 277 mg/dL (75-99)
[2019-09-11] MEDS: DOFETILIDE 250 MCG CAP PO SCH (18:05)
[2019-09-11 20:49] LABS: Glucose,Whole Blood 113 mg/dL (75-99)
[2019-09-11] MEDS: ATORVASTATIN 20 MG TAB PO SCH (20:49)
[2019-09-11] MEDS: MONTELUKAST 10 MG TAB PO SCH (20:49)
[2019-09-12] MEDS ORDERED: DOFETILIDE 250 MCG CAP ONE (06:04)
[2019-09-12 07:18] LABS: Glucose,Whole Blood 118 mg/dL (75-99)
[2019-09-12 08:05] LABS: African American GFR (CKD) >90 (>60 ml/min/1.73 sqM); Anion Gap 8 mmol/L; Blood Urea Nitrogen 17 mg/dL (9-20); Carbon Dioxide 27 mmol/L (22-30); Chloride 104 mmol/L (98-107); Glucose 126 mg/dL (74-99); Magnesium 1.9 mg/dL (1.6-2.3); Potassium 4.1 mmol/L (3.5-5.1); Sodium 139 mmol/L (137-145)
[2019-09-12] MEDS: DOFETILIDE 250 MCG CAP PO SCH ×2 (08:25→18:01)
[2019-09-12] MEDS: INSULIN ASPART (NovoLOG) 100 UNIT/ML VIAL SQ SCH ×4 (08:28→20:41)
[2019-09-12] MEDS: DILTIAZEM 125 MG in SODIUM CHLORIDE 0.9% 100 ML IV SCH ×3 (09:18→22:42)
[2019-09-12] MEDS: SERTRALINE 100 MG TAB PO SCH (09:19)
[2019-09-12] MEDS: APIXABAN 5 MG TAB PO SCH ×2 (09:19→20:25)
[2019-09-12] MEDS: CARVEDILOL 3.125 MG TAB PO SCH ×2 (09:19→17:11)
[2019-09-12] MEDS: LISINOPRIL 20 MG TAB PO SCH (09:19)
[2019-09-12] MEDS: MAGNESIUM OXIDE 400 MG TAB PO SCH (09:19)
[2019-09-12] MEDS: ASPIRIN 81 MG PO SCH (09:19)
[2019-09-12] MEDS: SPIRONOLACTONE 25 MG TAB PO SCH (09:19)
[2019-09-12 11:47] LABS: Glucose,Whole Blood 101 mg/dL (75-99)
--- NOTE | 2019-09-12 12:09 | P.PN ---
Subjective Progress Note Date: 09/12/19 Principal diagnosis: Atrial fibrillation Patient was seen and examined. No acute events overnight. Patient reports complete resolution of his chest pain and left shoulder pain. Telemetry shows a irregular heart rate at 74. He denies any chest pain, shortness of breath or palpitations. No nausea or vomiting. No fever or chills. Objective - Vital Signs Vital signs: Vital Signs Temp 98.3 F 09/12/19 07:55 Pulse 60 09/12/19 07:55 Resp 18 09/12/19 07:55 BP 121/74 09/12/19 07:55 Pulse Ox 93 L 09/12/19 07:55 Intake & Output 09/11/19 09/12/19 09/12/19 18:59 06:59 18:59 Intake Total 1340.417 97.5 Output Total 900 600 Balance 440.417 -600 97.5 Weight 123.2 kg Intake: Intake, IV Titration 100.417 97.5 Amount Diltiazem 125 mg In 100.417 97.5 Sodium Chloride 0.9% 100 ml @ 10 MG/HR 10 mls/hr IV .[id number] [facility] Rx#: [id number] Oral 1240 Output: Urine 900 600 Other: Voiding Method Urinal # Voids 1 - Exam General: [non toxic], [no distress], [appears at stated age] Derm: [warm], [dry] Head: [atraumatic], [normocephalic], [symmetric] Eyes: [EOMI], [no lid lag], [anicteric sclera] Mouth: [no lip lesion], [mucus membranes moist] Cardiovascular: [S1S2 reg], [irregularly irregular], [positive DP pulse bilateral], Lungs: [CTA bilateral], [no rhonchi, no rales] , [no accessory muscle use] Abdominal: [soft], [ nontender to palpation], [no guarding], [no appreciable organomegaly] Ext: [no gross muscle atrophy], [no edema], [no contractures] Neuro: [no focal neuro deficits] Psych: [Alert], [oriented], [appropriate affect] - Labs CBC & Chem 7: 09/10/19 00:50 09/12/19 05:43 Labs: Abnormal Lab Results - Last 24 Hours (Table) 09/11/19 09/11/19 09/12/19 Range/Units 17:02 20:48 05:43 Glucose 126 H (74-99) mg/dL POC Glucose (mg/dL) 277 H 113 H (75-99) mg/dL 09/12/19 09/12/19 Range/Units 06:09 11:45 Glucose (74-99) mg/dL POC Glucose (mg/dL) 118 H 101 H (75-99) mg/dL Assessment and Plan Assessment: Assessment and plan Atrial fibrillation post multiple ablation failed flecainide Leukocytosis Diabetes mellitus with hyperglycemia Chronic conditions: Stable asthma, hypertension, sleep apnea Resolved: Chest pain Plans: Continue on Tikosyn 250 g twice a day. Continue Coreg 3.125 mg by mouth twice a day. Continue Cardizem drip to be discontinued by cardiology. As per Dr. Camara, plans for cardioversion tomorrow. Anticoagulation with Eliquis. T elemetry monitoring. Keep potassium greater than 4 and radiation greater than 2. Follow-up cardiology consultation. Leukocytosis of 12.4 with neutrophilia. Chest x-ray shows no pneumonia. Patient is afebrile. Plans: Likely noninfectious. Likely reactive. Repeat CBC in the morning. [id number] glucose 126. Plans: Insulin sliding-scale. Regular Accu-Cheks. Hypoglycemic precautions. [As per cardiology, patient to be titrated on Tikosyn. Cardioversion scheduled for tomorrow. Will likely stay until Tuesday or Tuesday per Dr. Camara.]
[2019-09-12] MEDS: metFORMIN 500 MG TAB PO SCH ×2 (12:43→20:26)
--- NOTE | 2019-09-12 14:45 | P.PN ---
Subjective This is Dot Locke PA-C dictating a progress note on this patient The patient was interviewed and examined by me as well as by Dr. Camara Case discussed with Dr. Camara and he agrees with the plan of care IMPRESSION / ASSESSMENT: Persistent symptomatic atrial fibrillation status post multiple ablations, currently in atrial tachycardia with controlled ventricular response on dofetilide 250 g and IV Cardizem History of cardiomyopathy, most recent echo showing grossly normal LV size and function Asthma Diabetes PLAN: Continue dofetilide 250 g twice daily We'll schedule for cardioversion tomorrow continue oral magnesium supplement, will increase if mag not greater than 2 tomorrow Continue to monitor EKGs for QT prolongation Continue to monitor telemetry Continue daily BMPs and magnesium HPI/interval history Patient is a 74-year-old male with a past medical history of persistent atrial fibrillation status post multiple ablations, asthma, cardiomyopathy, diabetes who presented with complaints of chest discomfort. He was found to be in an atrial tachycardia RVR. He was started on IV Cardizem and was started on dofetilide yesterday. He remains in atrial tachycardia, his rates have been controlled in the 60s on the Cardizem drip. EKG today shows atrial tachycardia, cycle length remains around 240 ms, absolute QT remains around 400 ms. Patient seen and examined sitting in his chair. States his breathing and chest discomfort has improved significantly since yesterday. EXAMINATION Temperature 98.3F, pulse 60, respirations 18, blood pressure 121/74, oxygen saturation 93% on room air Patient seen and examined sitting in his chair, in no acute distress Lungs are clear to auscultation bilaterally no wheezing or rhonchi or crackles Heart is irregular, no murmurs noted No elevated JVD No lower extremity edema REVIEW OF LABS, ECG Potassium 4.1, BUN 17, creatinine 0.88, magnesium 1.9 Objective - Vital Signs Vital signs: Vital Signs Temp 98.3 F 09/12/19 07:55 Pulse 65 09/12/19 11:25 Resp 16 09/12/19 11:25 BP 126/73 09/12/19 11:25 Pulse Ox 94 L 09/12/19 11:25 Intake & Output 09/11/19 09/12/19 09/12/19 18:59 06:59 18:59 Intake Total 1340.417 337.5 Output Total 900 600 Balance 440.417 -600 337.5 Weight 123.2 kg Intake: Intake, IV Titration 100.417 97.5 Amount Diltiazem 125 mg In 100.417 97.5 Sodium Chloride 0.9% 100 ml @ 10 MG/HR 10 mls/hr IV .[id number] [facility] Rx#: [id number] Oral 1240 240 Output: Urine 900 600 Other: Voiding Method Urinal Urinal # Voids 1 1 - Labs CBC & Chem 7: 09/10/19 00:50 09/12/19 05:43 Labs: Abnormal Lab Results - Last 24 Hours (Table) 09/11/19 09/11/19 09/12/19 Range/Units 17:02 20:48 05:43 Glucose 126 H (74-99) mg/dL POC Glucose (mg/dL) 277 H 113 H (75-99) mg/dL 09/12/19 09/12/19 Range/Units 06:09 11:45 Glucose (74-99) mg/dL POC Glucose (mg/dL) 118 H 101 H (75-99) mg/dL
[2019-09-12 16:36] LABS: Glucose,Whole Blood 99 mg/dL (75-99)
[2019-09-12] MEDS: MONTELUKAST 10 MG TAB PO SCH (20:25)
[2019-09-12] MEDS: ATORVASTATIN 20 MG TAB PO SCH (20:25)
[2019-09-12 20:30] LABS: Glucose,Whole Blood 177 mg/dL (75-99)
[2019-09-12 20:33] LABS: Glucose,Whole Blood 148 mg/dL (75-99)
[2019-09-12] MEDS: ALPRAZolam 0.5 MG TAB PO PRN (22:42)
[2019-09-13] MEDS: DOFETILIDE 250 MCG CAP PO SCH ×2 (05:57→18:03)
[2019-09-13 06:07] LABS: Glucose,Whole Blood 122 mg/dL (75-99)
[2019-09-13] MEDS: INSULIN ASPART (NovoLOG) 100 UNIT/ML VIAL SQ SCH ×4 (06:44→22:23)
[2019-09-13] MEDS: APIXABAN 5 MG TAB PO SCH ×2 (06:45→21:03)
[2019-09-13] MEDS: MAGNESIUM OXIDE 400 MG TAB PO SCH (06:45)
[2019-09-13] MEDS: ASPIRIN 81 MG PO SCH (06:45)
[2019-09-13] MEDS: CARVEDILOL 3.125 MG TAB PO SCH ×2 (06:45→17:15)
[2019-09-13] MEDS: SERTRALINE 100 MG TAB PO SCH (06:45)
[2019-09-13] MEDS: LISINOPRIL 20 MG TAB PO SCH (06:45)
[2019-09-13 07:32] LABS: HCT 43.3 % (39.0-53.0); HGB 14.9 gm/dL (13.0-17.5); MCH 32.2 pg (25.0-35.0); MCHC 34.5 g/dL (31.0-37.0); MCV 93.4 fL (80.0-100.0); Mean Platelet Volume 6.2; Platelet Count 189 k/uL (150-450); RBC 4.64 m/uL (4.30-5.90); WBC 7.1 k/uL (3.8-10.6)
[2019-09-13 07:41] LABS: Magnesium 1.8 mg/dL (1.6-2.3); Potassium 4.2 mmol/L (3.5-5.1)
[2019-09-13] MEDS: SPIRONOLACTONE 25 MG TAB PO SCH (08:22)
[2019-09-13] MEDS: metFORMIN 500 MG TAB PO SCH ×2 (08:22→21:03)
--- NOTE | 2019-09-13 10:23 | P.PN ---
Subjective Progress Note Date: 09/13/19 Principal diagnosis: Atrial fibrillation Patient was seen and examined. No acute events overnight. Patient reports complete resolution of his chest pain and left shoulder pain. Telemetry shows a regular heart rate in the 70s. He denies any chest pain, shortness of breath or palpitations. No nausea or vomiting. No fever or chills. Objective - Vital Signs Vital signs: Vital Signs Temp 98.1 F 09/13/19 07:55 Pulse 71 09/13/19 07:55 Resp 16 09/13/19 07:55 BP 110/68 09/13/19 07:55 Pulse Ox 96 09/13/19 07:55 Intake & Output 09/12/19 09/13/19 09/13/19 18:59 06:59 18:59 Intake Total 577.5 125 Balance 577.5 125 Weight 123.2 kg 122.2 kg Intake: Intake, IV Titration 97.5 125 Amount Diltiazem 125 mg In 97.5 125 Sodium Chloride 0.9% 100 ml @ 10 MG/HR 10 mls/hr IV .[id number] [facility] Rx#: [id number] Oral 480 Other: Voiding Method Urinal Urinal # Voids 1 1 - Exam General: [non toxic], [no distress], [appears at stated age] Derm: [warm], [dry] Head: [atraumatic], [normocephalic], [symmetric] Eyes: [EOMI], [no lid lag], [anicteric sclera] Mouth: [no lip lesion], [mucus membranes moist] Cardiovascular: [S1S2 reg], [regular], [positive DP pulse bilateral], Lungs: [CTA bilateral], [no rhonchi, no rales] , [no accessory muscle use] Abdominal: [soft], [ nontender to palpation], [no guarding], [no appreciable organomegaly] Ext: [no gross muscle atrophy], [no edema], [no contractures] Neuro: [no focal neuro deficits] Psych: [Alert], [oriented], [appropriate affect] - Labs CBC & Chem 7: 09/13/19 06:59 09/13/19 06:59 Labs: Abnormal Lab Results - Last 24 Hours (Table) 09/12/19 09/12/19 09/12/19 Range/Units 05:43 11:45 20:29 Glucose 126 H (74-99) mg/dL POC Glucose (mg/dL) 101 H 177 H (75-99) mg/dL 09/12/19 09/13/19 09/13/19 Range/Units 20:30 06:06 06:59 Glucose 120 H (74-99) mg/dL POC Glucose (mg/dL) 148 H 122 H (75-99) mg/dL Assessment and Plan Assessment: Assessment and plan Atrial fibrillation post multiple ablation failed flecainide Diabetes mellitus with hyperglycemia Chronic conditions: Stable asthma, hypertension, sleep apnea Resolved: Chest pain, leukocytosis Plans: Continue on Tikosyn 250 g twice a day. Continue Coreg 3.125 mg by mouth twice a day. Cardizem drip discontinued by cardiology. As per Dr. Camara, no plans of cardioversion with conversion to sinus rhythm. Anticoagulation with Eliquis. Telemetry monitoring. Keep potassium greater than 4 and radiation greater than 2. Follow-up cardiology consultation. Rpzwg-ky-hunq glucose 120. Plans: Insulin sliding-scale. Regular Accu-Cheks. Hypoglycemic precautions. [As per cardiology, patient to be titrated on Tikosyn. Cardioversion plans stopped since conversion to sinus rhythm. Will likely stay until Tuesday or Tuesday per Dr. Camara.]
[2019-09-13 11:51] LABS: Glucose,Whole Blood 133 mg/dL (75-99)
[2019-09-13 16:35] LABS: Glucose,Whole Blood 95 mg/dL (75-99)
--- NOTE | 2019-09-13 17:44 | P.PN ---
Subjective Patient chemically cardioverted on dofetilide 250 g twice daily last evening. He is doing well he does not feel any palpitations no chest discomfort no dizziness lightheadedness. He is in good spirits On examination afebrile 97.0F pulse rate in the 70s sinus mechanism respirations normal blood pressure 120/76. His mercury Breath sounds are clear no rhonchi no crackles heart sounds are normal no murmurs or gallops or rub abdomen is soft nontender Extremities are warm no edema Twelve-lead ECG shows sinus rhythm with absolute QT interval of 460 ms He converted after the fourth dose of dofetilide Labs are reviewed Potassium 4.2 magnesium 1.8 hemoglobin normal Patient is on anticoagulation Impression Symptomatic atrial tachycardia with RVR Chest discomfort during RVR that starts in the upper chest and radiates to the left shoulder He's had stress tests in the past which were normal His troponins were normal on this admission Hypertension Central obesity Type 2 diabetes Suggest Reduce the dose of Zoloft to 50 mrem by mouth daily Increase the dose of Aldactone to 50 g by mouth daily Continue ELIQUIS Continue dofetilide Watch QT interval for the next 24-48 hours I will need to send scripts to the [facility]/Deborah Campa for Tikosyn Objective - Vital Signs Vital signs: Vital Signs Temp 97.0 F L 09/13/19 15:10 Pulse 74 09/13/19 15:10 Resp 18 09/13/19 15:10 BP 129/71 09/13/19 15:10 Pulse Ox 96 09/13/19 15:10 Intake & Output 09/12/19 09/13/19 09/13/19 18:59 06:59 18:59 Intake Total 577.5 125 118 Balance 577.5 125 118 Weight 123.2 kg 122.2 kg Intake: Intake, IV Titration 97.5 125 Amount Diltiazem 125 mg In 97.5 125 Sodium Chloride 0.9% 100 ml @ 10 MG/HR 10 mls/hr IV .[id number] [facility] Rx#: [id number] Oral 480 118 Other: Voiding Method Urinal Urinal # Voids 1 1 2 - Labs CBC & Chem 7: 09/13/19 06:59 09/13/19 06:59 Labs: Abnormal Lab Results - Last 24 Hours (Table) 09/12/19 09/12/19 09/13/19 Range/Units 20:29 20:30 06:06 Glucose (74-99) mg/dL POC Glucose (mg/dL) 177 H 148 H 122 H (75-99) mg/dL 09/13/19 09/13/19 Range/Units 06:59 11:50 Glucose 120 H (74-99) mg/dL POC Glucose (mg/dL) 133 H (75-99) mg/dL
[2019-09-13 20:34] LABS: Glucose,Whole Blood 126 mg/dL (75-99)
[2019-09-13] MEDS: MONTELUKAST 10 MG TAB PO SCH (21:03)
[2019-09-13] MEDS: ATORVASTATIN 20 MG TAB PO SCH (21:03)
[2019-09-13 22:22] VITALS: RESP 16
[2019-09-14] MEDS: CARVEDILOL 3.125 MG TAB PO SCH (06:19)
[2019-09-14] MEDS: DOFETILIDE 250 MCG CAP PO SCH (06:19)
[2019-09-14 06:45] LABS: Glucose,Whole Blood 103 mg/dL (75-99)
[2019-09-14] MEDS: INSULIN ASPART (NovoLOG) 100 UNIT/ML VIAL SQ SCH ×2 (06:47→11:59)
[2019-09-14 07:12] LABS: African American GFR (CKD) >90 (>60 ml/min/1.73 sqM); Anion Gap 9 mmol/L; Blood Urea Nitrogen 18 mg/dL (9-20); Calcium 9.1 mg/dL (8.4-10.2); Carbon Dioxide 26 mmol/L (22-30); Chloride 106 mmol/L (98-107); Glucose 108 mg/dL (74-99); Potassium 4.3 mmol/L (3.5-5.1); Sodium 141 mmol/L (137-145)
[2019-09-14 07:48] VITALS: BP 137/86; PULSE 75; TEMP 98.2
[2019-09-14] MEDS: ASPIRIN 81 MG PO SCH (08:39)
[2019-09-14] MEDS: APIXABAN 5 MG TAB PO SCH (08:39)
[2019-09-14] MEDS: MAGNESIUM OXIDE 400 MG TAB PO SCH (08:40)
[2019-09-14] MEDS: LISINOPRIL 20 MG TAB PO SCH (08:41)
[2019-09-14] MEDS ORDERED: SERTRALINE 50 MG TAB PO SCH (09:00)
[2019-09-14] MEDS ORDERED: SPIRONOLACTONE 25 MG TAB PO SCH (09:00)
[2019-09-14] MEDS: metFORMIN 500 MG TAB PO SCH (09:30)
--- NOTE | 2019-09-14 10:30 | P.DS ---
Providers Date of admission: 09/10/19 02:09 Expected date of discharge: 09/14/19 Attending physician: Joy Loera MD Consults: 09/10/19 02:09 Consult Physician Urgent Consulting Provider: Medardo Camara Consult Reason/Comments: arrhythmia Do you want consulting provider notified?: Yes Primary care physician: Mclean Hospital Course: 74-year-old male with PMH of atrial fibrillation status post ablation 6 weeks prior, asthma, diabetes mellitus, hypertension presented to the ED for constellation of symptoms included chest pain, shortness of breath along with palpitations. He initially thought this was an asthma attack but symptoms did not resolve with albuterol inhaler. When he came to the ED, EKG showed supraventricular tachycardia which failed cardioversion with adenosine, thus Cardizem drip was started. Repeat EKG showed atrial fibrillation with rapid ventricular rate. Cardiology was consulted and patient was started on Tikosyn by mouth. His home medication of Coreg was continued. He was anticoagulated with his home medication of Eliquis. Patient continued to be in atrial fibrillation with heart rate in the 140s, thus echocardiogram was performed in preparation for cardioversion. Echocardiogram showed normal systolic function. Patient converted on Tikosyn prior to cardioversion. With regard to his chest pain, troponin was less than 0.0123 and acute coronary syndrome was ruled out. His pleuritic chest pain was thought to be due to atelectasis which was seen on chest x-ray and incentive spirometer was ordered. His constellation of symptoms resolved soon after he converted to sinus rhythm. Patient was seen and examined. No acute events overnight. Patient denies any chest pain, shortness of breath or palpitations. No nausea or vomiting. No fever or chills. Continues to maintain sinus rhythm with heart rate in the 70s. General: [non toxic], [no distress], [appears at stated age] Derm: [warm], [dry] Head: [atraumatic], [normocephalic], [symmetric] Eyes: [EOMI], [no lid lag], [anicteric sclera] Mouth: [no lip lesion], [mucus membranes moist] Cardiovascular: [S1S2 reg], [regular], [positive DP pulse bilateral], Lungs: [CTA bilateral], [no rhonchi, no rales] , [no accessory muscle use] Abdominal: [soft], [ nontender to palpation], [no guarding], [no appreciable organomegaly] Ext: [no gross muscle atrophy], [no edema], [no contractures] Neuro: [no focal neuro deficits] Psych: [Alert], [oriented], [appropriate affect] Assessment and plan Atrial fibrillation post multiple ablation failed flecainide Diabetes mellitus PTSD Obesity with BMI 36.0 Chronic conditions: Stable asthma, hypertension, sleep apnea Resolved: Chest pain, leukocytosis Plans: Continue on Tikosyn 250 g twice a day. Continue Coreg 3.125 mg by mouth twice a day. As per Dr. Camara, no plans of cardioversion with conversion to sinus rhythm. Anticoagulation with Eliquis. Telemetry monitoring. Keep potas sium greater than 4 and radiation greater than 2. Follow-up cardiology consultation. Kongz-pl-bqwm glucose 103. Plans: Insulin sliding-scale. Regular Accu-Cheks. Hypoglycemic precautions. Plans: Decreased Zoloft to 50 mg as per cardiology recommendations. Continue Xanax as needed for anxiety. Plans: Structured weight loss program. [As per cardiology, patient to be titrated on Tikosyn. Cardioversion plans stopped since conversion to sinus rhythm. Will likely stay until Tuesday or Tuesday per Dr. Camara. DC pending cardiology recommendations.] Patient Condition at Discharge: Fair Plan - Discharge Summary New Discharge Prescriptions: New Spironolactone [Aldactone] 50 mg PO DAILY #90 tab Magnesium Oxide [Mag-Ox] 400 mg PO DAILY #90 tab Dofetilide [Tikosyn] 250 mcg PO Q12HR@0600,1800 cap Continue Apixaban [Eliquis] 5 mg PO BID Aspirin 81 mg PO DAILY Carvedilol [Coreg] 3.125 mg PO BID Atorvastatin [Lipitor] 20 mg PO HS metFORMIN HCL 500 mg PO BID Montelukast [Singulair] 10 mg PO HS Lisinopril [Prinivil] 20 mg PO DAILY Discontinued Citalopram Hydrobromide [CeleXA] 40 mg PO DAILY Spironolactone [Aldactone] 12.5 mg PO DAILY Flecainide [Tambocor] 25 mg PO Q12HR Discharge Medication List Apixaban [Eliquis] 5 mg PO BID 12/27/14 [History] Aspirin 81 mg PO DAILY 12/30/14 [History] Atorvastatin [Lipitor] 20 mg PO HS 05/12/16 [History] Carvedilol [Coreg] 3.125 mg PO BID 05/12/16 [History] metFORMIN HCL 500 mg PO BID 06/15/19 [History] Lisinopril [Prinivil] 20 mg PO DAILY 08/03/19 [History] Montelukast [Singulair] 10 mg PO HS 08/03/19 [History] Dofetilide [Tikosyn] 250 mcg PO Q12HR@0600,1800 cap 09/14/19 [Rx] Magnesium Oxide [Mag-Ox] 400 mg PO DAILY #90 tab 09/14/19 [Rx] Spironolactone [Aldactone] 50 mg PO DAILY #90 tab 09/14/19 [Rx] Follow up Appointment(s)/Referral(s): Medardo Camara MD [STAFF PHYSICIAN] - 09/25/19 9:30 am (Follow-up with Dr. Camara/Dot Locke/Aylin Mckee.) Liam Garcia MD [Primary Care Provider] - 1-2 days Activity/Diet/Wound Care/Special Instructions: Script for Tikosyn 250mcg po bid for 3 month supply sent to [facility] for a colon check....indigent fund form filled out to [facility] a 3 week supply, Dr. Camara will then work with the [place] to obtain the drug for patient on a intermediate accountant basis. Indigent funds at discharge Fax new scripts to [facility] -[phone] Per [facility] pharmacy-Tikosyn is not covered by pts insurance Start flecainide Stop citalopram Follow-up with PCP within 3 days of discharge. Follow-up with cardiology within 1 week of discharge. Take all medications as advised. Discharge Disposition: HOME SELF-CARE
--- NOTE | 2019-09-14 13:34 | P.PRLE ---
RE: Ramy Jain Please see full dictation by Duyen Locke Add a very detailed discussion about dofetilide with the patient this morning Over 30 minutes was spent explaining the do's and don'ts for dofetilide A full education was provided Drug interactions were discussed Details of the drug were discussed Patient verbalized an understanding
--- NOTE | 2019-09-14 13:57 | P.PN ---
Subjective This is Dot Locke PA-C dictating a progress note on this patient The patient was interviewed and examined by me as well as by Dr. Camara Case discussed with Dr. Camara and he agrees with the plan of care IMPRESSION / ASSESSMENT: Persistent symptomatic atrial fibrillation status post multiple ablations, converted to sinus rhythm on dofetilide 250 g twice a day, currently in sinus rhythm History of cardiomyopathy, most recent echo showing grossly normal LV size and function Asthma Diabetes PLAN: Dr. Camara had a detailed discussion with the patient regarding his dofetilide, however he should take it, and medication interactions All of the patient's questions were answered Patient given information sheet on dofetilide Patient will be discharged on dofetilide 250 g twice daily Continue all other cardiac medications Continue magnesium supplement Follow-up in the office, given a prescription to check a BMP prior HPI/interval history Patient is a 74-year-old male with a past medical history of persistent atrial fibrillation status post multiple ablations, asthma, cardiomyopathy, diabetes who presented with complaints of chest discomfort. He was found to be in an atrial tachycardia RVR. We started him on dofetilide 250 g twice daily. After 4 doses he converted to sinus rhythm. He has remained in sinus rhythm. EKG today shows that he is still in sinus rhythm, absolute QT 440 ms. Patient seen and examined sitting up in his chair. States his symptoms of chest discomfort and shortness of breath have completely resolved. Denies any dizziness or lightheadedness. EXAMINATION Temperature 98.2F, pulse 75, respirations 16, blood pressure 137/86, oxygen saturation 95% on room air Patient seen and examined sitting in his chair, in no acute distress Lungs are clear to auscultation bilaterally no wheezing or rhonchi or crackles Heart is regular, normal S1 and S2, no murmurs No elevated JVD No lower extremity edema REVIEW OF LABS, ECG Sodium 141, potassium 4.3, BUN 18, creatinine 0.95, magnesium 1.9 Objective - Vital Signs Vital signs: Vital Signs Temp 98.2 F 09/14/19 07:47 Pulse 75 09/14/19 08:58 Resp 16 09/14/19 08:58 BP 137/86 09/14/19 07:47 Pulse Ox 95 09/14/19 07:47 Intake & Output 09/13/19 09/14/19 09/14/19 18:59 06:59 18:59 Intake Total 238 480 Output Total 250 Balance 238 -250 480 Weight 120.5 kg Intake: Oral 238 480 Output: Urine 250 Other: Voiding Method Urinal Toilet # Voids 2 5 # Bowel Movements 2 - Labs CBC & Chem 7: 09/13/19 06:59 09/14/19 06:02 Labs: Abnormal Lab Results - Last 24 Hours (Table) 09/13/19 09/14/19 09/14/19 Range/Units 20:31 06:02 06:42 Glucose 108 H (74-99) mg/dL POC Glucose (mg/dL) 126 H 103 H (75-99) mg/dL
== END 2019-09-14 14:40 | disposition home or self-care (01) | DRG 309 ==
LOC: EC 00:25 → 3SCARD 02:09
PROVIDERS: ADMIT Internal Medicine; ATTEND Internal Medicine
DX: I48.91 Unspecified atrial fibrillation (principal); J98.11 Atelectasis; I49.5 Sick sinus syndrome; J45.909 Unspecified asthma, uncomplicated; G47.30 Sleep apnea, unspecified; Z99.89 Dependence on other enabling machines and devices; D72.829 Elevated white blood cell count, unspecified; E11.65 Type 2 diabetes mellitus with hyperglycemia; E66.9 Obesity, unspecified; E83.42 Hypomagnesemia; F43.10 Post-traumatic stress disorder, unspecified; H91.90 Unspecified hearing loss, unspecified ear; I10 Essential (primary) hypertension; I47.1 Supraventricular tachycardia; I45.81 Long QT syndrome; Z68.36 Body mass index [BMI] 36.0-36.9, adult; Z79.01 Long term (current) use of anticoagulants; Z79.82 Long term (current) use of aspirin; Z79.84 Long term (current) use of oral hypoglycemic drugs; Z79.899 Other long term (current) drug therapy; Z82.5 Family history of asthma and other chronic lower respiratory diseases; Z98.49 Cataract extraction status, unspecified eye
CPT/HCPCS: 36415; 71045; 80048; 80053; 80061; 83735; 84443; 84484; 85025; 85027; 85610; 85730; 93005; 93306; 94760; 96365; 96366; 96368; 96375; 96376; 99285

== ENCOUNTER → 2019-11-06 | Outpatient (CLI) | payer OTHER ==
[2019-11-06 19:33] LABS: African American GFR (CKD) 63.2 (60.0-200.0); Anion Gap 8.5 mmol/L (4.00-12.00); BUN/Creat Ratio 21.54 Ratio (12.00-20.00); Calcium 9.4 mg/dL (8.7-10.3); Carbon Dioxide 25.5 mmol/L (21.6-31.8); Magnesium 1.9 mg/dL (1.5-2.4); Non-African American GFR(CKD) 54.5 (60.0-200.0); Potassium 4.8 mmol/L (3.5-5.5)
== END | disposition home or self-care (01) ==
LOC: LABWHC1 12:48
PROVIDERS: ATTEND Physician Assistant
DX: I48.91 Unspecified atrial fibrillation (principal)
CPT/HCPCS: 36415; 80048; 83735

== ENCOUNTER → 2019-11-19 | Outpatient (CLI) | payer OTHER ==
[2019-11-19 17:02] LABS: African American GFR (CKD) 53.1 (60.0-200.0); Anion Gap 6.8 mmol/L (4.00-12.00); Calcium 9.7 mg/dL (8.7-10.3); Carbon Dioxide 24.2 mmol/L (21.6-31.8); Magnesium 1.8 mg/dL (1.5-2.4); Non-African American GFR(CKD) 45.9 (60.0-200.0); Potassium 5.5 mmol/L (3.5-5.5)
== END | disposition home or self-care (01) ==
LOC: LABWHC1 10:29
PROVIDERS: ATTEND Physician Assistant
DX: I48.91 Unspecified atrial fibrillation (principal)
CPT/HCPCS: 36415; 80048; 83735

== ENCOUNTER → 2019-11-26 | Outpatient (CLI) | payer OTHER ==
[2019-11-26 16:43] LABS: African American GFR (CKD) 86.8 (60.0-200.0); Anion Gap 4.8 mmol/L (4.00-12.00); Calcium 9.1 mg/dL (8.7-10.3); Carbon Dioxide 26.2 mmol/L (21.6-31.8); Non-African American GFR(CKD) 74.9 (60.0-200.0); Potassium 4.5 mmol/L (3.5-5.5)
[2019-11-26 19:34] LABS: Hemoglobin A1C 6.5 % (4.0-6.0)
== END | disposition home or self-care (01) ==
LOC: LABWHC1 09:10
PROVIDERS: ATTEND Internal Medicine Clinical Cardiac Electrophysiology
DX: I48.91 Unspecified atrial fibrillation (principal); E11.9 Type 2 diabetes mellitus without complications
CPT/HCPCS: 36415; 80048; 83036

== ENCOUNTER → 2020-04-07 | Outpatient (CLI) | payer OTHER | END | disposition home or self-care (01) | LOC: LABWHC1 08:36 | PROVIDERS: ATTEND Internal Medicine Interventional Cardiology | DX: U07.1 COVID-19 (principal) | CPT/HCPCS: 87635 ==

== ENCOUNTER 2020-04-09 09:50 | Day surgery (SDC) | payer MEDICARE, OTHER ==
[2020-04-08 09:47] VITALS: BMI 36.7
[~2020-04-09 09:50] MED LIST changes: +ALPRAZolam 0.25 MG TAB PO PRN; +ALPRAZolam 0.5 MG TAB PO PRN; +ASPIRIN 325 MG TAB PO ONE; +ATORVASTATIN 80 MG TAB PO ONE; +NITROGLYCERIN SL TABS 0.4 MG TAB SUBLINGUAL PRN; -SODIUM CHLORIDE 0.9% 1,000 ML IV SCH; +SODIUM CHLORIDE 0.9% 1,000 ML in EMPTY BAG 1 BAG IV ONE
[2020-04-09 10:20] LABS: Glucose,Whole Blood 144 mg/dL (75-99)
[2020-04-09 10:22] VITALS: TEMP 98.2
[2020-04-09] MEDS ORDERED: VERAPAMIL 2.5 MG/ML 2 ML AMP ONE (10:28)
[2020-04-09] MEDS ORDERED: LIDOCAINE 1% INJ 10MG/ML (20 ML MDV) ONE (10:28)
[2020-04-09] MEDS ORDERED: HEPARIN SODIUM 1,000 UN/ML (10ML VL) ONE (10:28)
[2020-04-09 10:33] LABS: Basophils # (A) 0.1 k/uL (0-0.2); Basophils % (A) 1 %; Eosinophils # (A) 0.2 k/uL (0-0.7); Eosinophils % (A) 4 %; HCT 51.5 % (39.0-53.0); Lymphocytes # (A) 1.4 k/uL (1.0-4.8); Lymphocytes % (A) 20 %; MCH 31.7 pg (25.0-35.0); MCHC 34.9 g/dL (31.0-37.0); MCV 90.9 fL (80.0-100.0); Mean Platelet Volume 7.6; Monocytes # (A) 0.5 k/uL (0-1.0); Monocytes % (A) 7 %; Neutrophils # (A) 4.6 k/uL (1.3-7.7); Neutrophils % (A) 67 %; Platelet Count 240 k/uL (150-450); RBC 5.67 m/uL (4.30-5.90); RDW 13.8 % (11.5-15.5); WBC 6.9 k/uL (3.8-10.6)
[2020-04-09 10:42] LABS: African American GFR (CKD) >90 (>60 ml/min/1.73 sqM); Anion Gap 9 mmol/L; Blood Urea Nitrogen 16 mg/dL (9-20); Calcium 9.5 mg/dL (8.4-10.2); Carbon Dioxide 25 mmol/L (22-30); Chloride 105 mmol/L (98-107); Glucose 160 mg/dL (74-99); Non-African American GFR(CKD) 88 (>60 ml/min/1.73 sqM); Potassium 4.6 mmol/L (3.5-5.1); Sodium 139 mmol/L (137-145)
[2020-04-09] MEDS ORDERED: MIDAZOLAM 2 MG/2 ML VIAL IV ONE (10:48)
[2020-04-09] MEDS ORDERED: LIDOCAINE 1% INJ 10MG/ML (20 ML MDV) SQ ONE (10:52)
[2020-04-09] MEDS: VERAPAMIL SYRINGE (5 MG/10 ML) INTRAARTER ONE ×2 (10:54→11:14)
[2020-04-09] MEDS ORDERED: IOPAMIDOL-370 100ML BTL INJ ONE (11:10)
[2020-04-09] MEDS ORDERED: SODIUM CHLORIDE 0.9% 1,000 ML IV SCH (11:25)
--- NOTE | 2020-04-09 13:01 | CC ---
CARDIAC CATHETERIZATION REPORT DATE OF SERVICE: 04/09/2020 PROCEDURE: Left heart catheterization and coronary angiography. PERFORMED BY: Dr. Juany Abbasi. Moderate conscious sedation time was 26 minutes. Patient was administered Versed. Oxygen saturation, hemodynamics and EKG were monitored closely. CLINICAL INFORMATION: Mr. Jain is a 74-year-old gentleman, history of type 2 diabetes, hypertension, hyperlipidemia, paroxysmal atrial fibrillation, no maintaining sinus rhythm with symptoms of the chest and jaw discomfort and an abnormal new EKG changes. Given this presentation, it was advised coronary angiography after evaluation by Dr. Camara. I spoke to the patient, explained to him the rationale, risks, benefits, options and then brought in for elective cardiac catheterization. He understood all details and wished to proceed with the procedure. PROCEDURE NOTE: Under local anesthesia and strict aseptic precautions, a 6-Mauritanian introducer was placed in the right radial artery. Using a JL3.5 and JR4 catheters, I performed selective coronary angiography and a pigtail catheter was used to check LV pressure but LV gram was not performed. The sheath was taken out and a large TR band applied as per protocol. The saturation of the fingers of the right hand was 91%. The patient was sent to the room in stable condition. Results were discussed with him in detail and I also spoke to his by phone. I expect he will be discharged later on today if he remains stable. CARDIAC CATHETERIZATION FINDINGS: The left end-diastolic pressure was about 14 mmHg without any gradient across the aortic valve. CORONARY ANGIOGRAPHY FINDINGS: RIGHT CORONARY ARTERY: This is a dominant vessel, very tortuous, distally bifurcates into a large PDA, smaller PLV. No significant disease, has minor irregularities and compared to the 2015 cardiac cath, no significant change. LEFT MAIN CORONARY ARTERY: Short, patent, disease-free vessel that bifurcates into LAD and circumflex. LEFT ANTERIOR DESCENDING CORONARY ARTERY: Good caliber vessel extends along the anterior wall, gives off diagonal branch in the midportion, supplies a sizable amount of myocardium, has minor irregularities, no significant disease in the LAD of the diagonal system. This is a large caliber, large distribution LAD system. LEFT POSTERIOR CIRCUMFLEX CORONARY ARTERY: Technically, a nondominant vessel, gives off a small caliber fair distribution high first obtuse marginal, almost looks like a ramus that there is a second obtuse marginal and then a groove branch. All of these vessels have minor irregularities. No significant disease and supplies a sizable amount of myocardium. There is no significant disease in the circumflex system. LEFT VENTRICULOGRAM: This was not performed. FINAL IMPRESSION: This patient has a right dominant system. Normal filling pressures. No gradient across the aortic valve and no significant obstructive CAD. RECOMMENDATION: I am recommending continued medical therapy with risk factor modification given his risk factors include diabetes and hypertension. He will be discharged later on today if he remains stable. Results were discussed with the patient. I also spoke to his and he will see Dr. Camara in the office next week. MMODL / IJN: [id number] /
[2020-04-09 17:07] VITALS: RESP 16
[2020-04-09 17:23] VITALS: BP 135/68; PULSE 71
--- NOTE | 2020-04-17 09:42 | CDI ---
Outpatient Documentation Clarification Form Date: 04/17/20 CDS/Sap Developer Name: Nena Kasper Phone: If any questions, call Heavenly Dickson Solar Project Coordination Specialist at [phone] Patient Name: Ramy Jain Admit Date: 04/09/20 Discharge Date: 04/09/20 ATTENTION: The [facility] Coding Staff appreciate your assistance in clarifying documentation. Please respond to the clarification below the line at the bottom and electronically sign. The [facility] Coding staff will review the response and follow-up if needed. Please note: Queries are made part of the Legal Health Record. If you have any questions, please contact the Solar Project Coordination Specialist. Dear Dr. Juany Abbasi, Please provide clarification as to the type fo atrial fibrillation the patient has. The H&P under Problem List states paroxysmal and under Impression and Plan it is documented as Persistent. Then on the cardiac catheterization report it is again documented as paroxysmal. Please clarify. Thank you for your kind consideration. paroxysmal MTDD
== END 2020-04-09 18:02 | disposition home or self-care (01) ==
LOC: CATHCVL 09:50
PROVIDERS: ATTEND Internal Medicine Interventional Cardiology
DX: I20.0 Unstable angina (principal); I77.1 Stricture of artery; I42.9 Cardiomyopathy, unspecified; R94.31 Abnormal electrocardiogram [ECG] [EKG]; I49.5 Sick sinus syndrome; I48.0 Paroxysmal atrial fibrillation; I10 Essential (primary) hypertension; E78.5 Hyperlipidemia, unspecified; Z11.59 Encounter for screening for other viral diseases; E11.9 Type 2 diabetes mellitus without complications; E78.00 Pure hypercholesterolemia, unspecified; G47.33 Obstructive sleep apnea (adult) (pediatric); Z99.89 Dependence on other enabling machines and devices; E66.9 Obesity, unspecified; Z68.36 Body mass index [BMI] 36.0-36.9, adult; Z82.49 Family history of ischemic heart disease and other diseases of the circulatory system; Z79.82 Long term (current) use of aspirin; Z79.01 Long term (current) use of anticoagulants; Z79.84 Long term (current) use of oral hypoglycemic drugs; Z79.899 Other long term (current) drug therapy; Z79.51 Long term (current) use of inhaled steroids
CPT/HCPCS: 93458; 80048; 85025; 87635; C1769; C1894; J2250; J2001; J1644; Q9967

== ENCOUNTER 2021-01-06 16:28 | Inpatient (IN) | payer OTHER, MEDICARE ==
[2021-01-06] MEDS ORDERED: DILTIAZEM DRIP BOLUS FROM BAG 1 MG SOLN IV ONE (17:02)
--- NOTE | 2021-01-06 17:07 | ED ---
General Adult HPI - General Chief complaint: Arrhythmia/Palpitations Stated complaint: chest pain Time Seen by Provider: 01/06/21 16:35 Source: patient, RN notes reviewed, old records reviewed Mode of arrival: ambulatory Limitations: no limitations - History of Present Illness Initial comments: This is a 75-year-old male who presents emergency department with past medical history significant for atrial fibrillation. Patient states today he was at his [employer] office for asthma. While he was here his heart rate would go up to 140 and back down to 70 and since he got home with Benadryl 140 has been staying there. Patient states his little more short of breath when at that 140. Patient denies any chest pain. Patient denies feeling the palpitations. Patient denies any recent fever chills or cough per patient denies any lightheadedness or dizziness per patient denies headache patient denies numbness weakness. Patient has abdominal pain patient denies nausea vomiting or diarrhea. patient denies any calf tenderness or leg swelling - Related Data Home Medications Medication Instructions Recorded Confirmed Apixaban [Eliquis] 5 mg PO BID 12/27/14 04/09/20 Aspirin 81 mg PO DAILY 12/30/14 04/09/20 Atorvastatin [Lipitor] 40 mg PO HS 05/12/16 04/09/20 metFORMIN HCL 500 mg PO BID 06/15/19 04/09/20 Montelukast [Singulair] 10 mg PO HS 08/03/19 04/09/20 lisinopriL [Prinivil] 20 mg PO BID 08/03/19 04/09/20 Beclomethasone Dip 80 Mcg/Puff 2 puff INHALATION BID 04/08/20 04/09/20 [Qvar 80 mcg] Carvedilol [Coreg] 6.25 mg PO BID 04/08/20 04/09/20 Dofetilide [Tikosyn] 250 mcg PO BID 04/08/20 04/09/20 Magnesium Oxide [Mag-Ox] 420 mg PO DAILY 04/08/20 04/09/20 amLODIPine [Norvasc] 5 mg PO DAILY 04/08/20 04/09/20 Previous Rx's Medication Instructions Recorded Sertraline HCl [Zoloft] 50 mg PO DAILY #90 tablet 09/14/19 Allergies Allergy/AdvReac Type Severity Reaction Status Date / Time No Known Allergies Allergy Verified 01/06/21 16:36 Review of Systems ROS Statement: Those systems with pertinent positive or pertinent negative responses have been documented in the HPI. ROS Other: All systems not noted in ROS Statement are negative. Past Medical History Past Medical History: Atrial Fibrillation Additional Past Medical History / Comment(s): RUPTURED DISC L4 L5. SOB w/ activity. Uses CPAP. Type 2 diabetes. LT SHOULDER PROBLEMS. SEE HISTORY AND PHYSICAL FOR CARDIAC HISTORY. History of Any Multi-Drug Resistant Organisms: None Reported Past Surgical History: Appendectomy, Cardiac Ablation Additional Past Surgical History / Comment(s): CATARACTS REMOVED. Cardioversion. Past Anesthesia/Blood Transfusion Reactions: No Reported Reaction Past Psychological History: PTSD Smoking Status: Never smoker Past Alcohol Use History: None Reported Past Drug Use History: None Reported - Past Family History Mother Family Medical History: COPD Additional Family Medical History / Comment(s): heart problems. General Exam - General Exam Comments Initial Comments: GENERAL: Patient is well-developed and well-nourished. Patient is nontoxic and well- hydrated and is in mild distress. ENT: Neck is soft and supple. No significant lymphadenopathy is noted. Oropharynx is clear. Moist mucous membranes. Neck has full range of motion without eliciting any pain. EYES: The sclera were anicteric and conjunctiva were pink and moist. Extraocular movements were intact and pupils were equal round and reactive to light. Eyelid s were unremarkable. PULMONARY: Unlabored respirations. Good breath sounds bilaterally. No audible rales rhonchi or wheezing was noted. CARDIOVASCULAR: Patient is tachycardic at 140 beats a minute and regular ABDOMEN: Soft and nontender with normal bowel sounds. No palpable organomegaly was no jennie. There is no palpable pulsatile mass. SKIN: Skin is clear with no lesions or rashes and otherwise unremarkable. NEUROLOGIC: Patient is alert and oriented x3. Cranial nerves II through XII are grossly intact. Motor and sensory are also intact. Normal speech, volume and content. Symmetrical smile. MUSCULOSKELETAL: Normal extremities with adequate strength and full range of motion. No lower extremity swelling or edema. No calf tenderness. LYMPHATICS: No significant lymphadenopathy is noted PSYCHIATRIC: Normal psychiatric evaluation. Limitations: no limitations Course Vital Signs 01/06/21 01/06/21 01/06/21 16:35 16:42 17:00 Temperature 98.9 F Pulse Rate 76 100 Respiratory 18 19 Rate Blood Pressure 128/94 133/110 141/104 O2 Sat by Pulse 96 97 Oximetry 01/06/21 01/06/21 01/06/21 17:30 18:00 18:30 Temperature Pulse Rate 91 113 H 140 H Respiratory 16 16 17 Rate Blood Pressure 116/87 114/79 115/99 O2 Sat by Pulse 94 L 94 L 95 Oximetry 01/06/21 19:00 Temperature Pulse Rate 124 H Respiratory 16 Rate Blood Pressure 103/73 O2 Sat by Pulse 94 L Oximetry Medical Decision Making - Medical Decision Making EKG shows supraventricular tachycardia at 141 bpm QRS is 90 QT interval is 322 QTC is 493 per patient's EKG shows no ST segment elevation or depression. I spoke with Dr. Camara he wanted the patient started on Cardizem I started him a Cardizem drip at 5 per hour and a 5 mg bolus. Patient has an atrial tachycardia. I went back into reevaluate the patient and heart rate was dipping into the 90s them back up to 140 and the patient was feeling better. Patient was stable. I spoke with Dr. Loera and he agreed to admit the patient minute the patient wrote admitting orders. I consulted cardiology. - Lab Data Result diagrams: 01/06/21 17:05 01/06/21 17:05 Lab Results 01/06/21 01/06/21 01/06/21 Range/Units 17:05 17:05 17:05 WBC 9.0 (3.8-10.6) k/uL RBC 5.76 (4.30-5.90) m/uL Hgb 18.7 H (13.0-17.5) gm/dL Hct 52.5 (39.0-53.0) % MCV 91.2 (80.0-100.0) fL MCH 32.5 (25.0-35.0) pg MCHC 35.6 (31.0-37.0) g/dL RDW 13.3 (11.5-15.5) % Plt Count 230 (150-450) k/uL MPV 7.4 Neutrophils % 68 % Lymphocytes % 19 % Monocytes % 7 % Eosinophils % 3 % Basophils % 2 % Neutrophils # 6.1 (1.3-7.7) k/uL Lymphocytes # 1.7 (1.0-4.8) k/uL Monocytes # 0.7 (0-1.0) k/uL Eosinophils # 0.3 (0-0.7) k/uL Basophils # 0.1 (0-0.2) k/uL PT 10.6 (9.0-12.0) sec INR 1.0 (<1.2) APTT 27.4 (22.0-30.0) sec Sodium 136 L (137-145) mmol/L Potassium 5.0 (3.5-5.1) mmol/L Chloride 105 (98-107) mmol/L Carbon Dioxide 21 L (22-30) mmol/L Anion Gap 10 mmol/L BUN 19 (9-20) mg/dL Creatinine 0.95 (0.66-1.25) mg/dL Est GFR (CKD-EPI)AfAm >90 (>60 ml/min/1.73 sqM) Est GFR (CKD-EPI)NonAf 80 (>60 ml/min/1.73 sqM) Glucose 172 H (74-99) mg/dL Calcium 9.8 (8.4-10.2) mg/dL Magnesium 1.8 (1.6-2.3) mg/dL Total Bilirubin 1.0 (0.2-1.3) mg/dL AST 38 (17-59) U/L ALT 50 H (4-49) U/L Alkaline Phosphatase 125 (38-126) U/L Troponin I (0.000-0.034) ng/mL Total Protein 7.8 (6.3-8.2) g/dL Albumin 4.6 (3.5-5.0) g/dL TSH 1.960 (0.465-4.680) mIU/L 01/06/21 Range/Units 17:05 WBC (3.8-10.6) k/uL RBC (4.30-5.90) m/uL Hgb (13.0-17.5) gm/dL Hct (39.0-53.0) % MCV (80.0-100.0) fL MCH (25.0-35.0) pg MCHC (31.0-37.0) g/dL RDW (11.5-15.5) % Plt Count (150-450) k/uL MPV Neutrophils % % Lymphocytes % % Monocytes % % Eosinophils % % Basophils % % Neutrophils # (1.3-7.7) k/uL Lymphocytes # (1.0-4.8) k/uL Monocytes # (0-1.0) k/uL Eosinophils # (0-0.7) k/uL Basophils # (0-0.2) k/uL PT (9.0-12.0) sec INR (<1.2) APTT (22.0-30.0) sec Sodium (137-145) mmol/L Potassium (3.5-5.1) mmol/L Chloride (98-107) mmol/L Carbon Dioxide (22-30) mmol/L Anion Gap mmol/L BUN (9-20) mg/dL Creatinine (0.66-1.25) mg/dL Est GFR (CKD-EPI)AfAm (>60 ml/min/1.73 sqM) Est GFR (CKD-EPI)NonAf (>60 ml/min/1.73 sqM) Glucose (74-99) mg/dL Calcium (8.4-10.2) mg/dL Magnesium (1.6-2.3) mg/dL Total Bilirubin (0.2-1.3) mg/dL AST (17-59) U/L ALT (4-49) U/L Alkaline Phosphatase (38-126) U/L Troponin I <0.012 (0.000-0.034) ng/mL Total Protein (6.3-8.2) g/dL Albumin (3.5-5.0) g/dL TSH (0.465-4.680) mIU/L Critical Care Time Critical Care Time: Yes Total Critical Care Time: 35 Disposition Clinical Impression: Atrial tachycardia Disposition: ADMITTED IP TO THIS HOSP Referrals: Puma Watt MD [Primary Care Provider] - 1-2 days Time of Disposition: 19:07
[2021-01-06] MEDS ORDERED: DILTIAZEM 125 MG in SODIUM CHLORIDE 0.9% 100 ML IV SCH (17:15)
[2021-01-06 17:16] LABS: Basophils # (A) 0.1 k/uL (0-0.2); Basophils % (A) 2 %; Eosinophils # (A) 0.3 k/uL (0-0.7); Eosinophils % (A) 3 %; HCT 52.5 % (39.0-53.0); HGB 18.7 gm/dL (13.0-17.5); Lymphocytes # (A) 1.7 k/uL (1.0-4.8); Lymphocytes % (A) 19 %; MCH 32.5 pg (25.0-35.0); MCHC 35.6 g/dL (31.0-37.0); MCV 91.2 fL (80.0-100.0); Mean Platelet Volume 7.4; Monocytes # (A) 0.7 k/uL (0-1.0); Monocytes % (A) 7 %; Neutrophils # (A) 6.1 k/uL (1.3-7.7); Neutrophils % (A) 68 %; Platelet Count 230 k/uL (150-450); RBC 5.76 m/uL (4.30-5.90); RDW 13.3 % (11.5-15.5)
--- NOTE | 2021-01-06 17:19 | XR ---
EXAMINATION TYPE: XR chest 2V DATE OF EXAM: 01/06/2021 COMPARISON: 09/10/2019. HISTORY: Dysrhythmia/pain. TECHNIQUE: Frontal and lateral views of the chest are obtained. FINDINGS: There is mild left basilar atelectasis. No pleural effusion, or pneumothorax seen. The ca rdiac silhouette size is within normal limits. The osseous structures are intact. IMPRESSION: Mild left basilar atelectasis.
[2021-01-06 17:25] LABS: Partial Thromboplastin Time 27.4 sec (22.0-30.0); Prothrombin Time 10.6 sec (9.0-12.0)
[2021-01-06 17:26] LABS: ALT 50 U/L (4-49); AST 38 U/L (17-59); African American GFR (CKD) >90 (>60 ml/min/1.73 sqM); Albumin 4.6 g/dL (3.5-5.0); Alkaline Phosphatase 125 U/L (38-126); Anion Gap 10 mmol/L; Blood Urea Nitrogen 19 mg/dL (9-20); Calcium 9.8 mg/dL (8.4-10.2); Carbon Dioxide 21 mmol/L (22-30); Chloride 105 mmol/L (98-107); Glucose 172 mg/dL (74-99); Magnesium 1.8 mg/dL (1.6-2.3); Non-African American GFR(CKD) 80 (>60 ml/min/1.73 sqM); Sodium 136 mmol/L (137-145); Total Protein 7.8 g/dL (6.3-8.2)
[2021-01-06] MEDS ORDERED: NITROGLYCERIN SL TABS 0.4 MG TAB SUBLINGUAL PRN (19:08)
[2021-01-06] MEDS ORDERED: IPRATROPIUM-ALBUTEROL 3 ML NEB INHALATION PRN (22:34)
--- NOTE | 2021-01-07 00:25 | P.HPIM ---
History of Present Illness H&P Date: 01/06/21 Chief Complaint: tachycardia 75 year old male with hypertension , asthma, CMP, DM, afib s/p ablation patient comes in due to persistent tachycardia . he is asymptomatic . he was at his lung doctor office when he was found to have tachycardia, he denies any associated symptoms, denies any chest pain or trouble breathing , denies any SOB. he went home, hoping that this tachycardia would go away on its own, still asymptomatic, he was watching his heart racing on the pulse ox he owns at home, waited for few hours , then decided to come to the hospital for evaluation . he claims that he is compliant with his meds, no recent changes in his medications, he has a left heart cath from March 2020, which showed no significant blockages. EKG in the ED showed atrial tachycardia. blood work overall unremarkable , trops negative he started on cardizem per cardio recommendations, he is currently rate controlled Review of Systems Pertinent positives as noted in HPI. All other systems were reviewed and are negative Past Medical History Past Medical History: Atrial Fibrillation Additional Past Medical History / Comment(s): RUPTURED DISC L4 L5. SOB w/activity. Uses CPAP. Type 2 diabetes. LT SHOULDER PROBLEMS. SEE HISTORY AND PHYSICAL FOR CARDIAC HISTORY. History of Any Multi-Drug Resistant Organisms: None Reported Past Surgical History: Appendectomy, Cardiac Ablation Additional Past Surgical History / Comment(s): CATARACTS REMOVED. Cardioversion. Past Anesthesia/Blood Transfusion Reactions: No Reported Reaction Past Psychological History: PTSD Smoking Status: Never smoker Past Alcohol Use History: None Reported Past Drug Use History: None Reported - Past Family History Mother Family Medical History: COPD Additional Family Medical History / Comment(s): heart problems. Medications and Allergies Home Medications Medication Instructions Recorded Confirmed Type Apixaban [Eliquis] 5 mg PO BID 12/27/14 01/06/21 History Aspirin 81 mg PO DAILY 12/30/14 01/06/21 History metFORMIN HCL 500 mg PO BID 06/15/19 01/06/21 History Montelukast [Singulair] 10 mg PO HS 08/03/19 01/06/21 History Beclomethasone Dip 80 Mcg/Puff 2 puff INHALATION RT-BID 04/08/20 01/06/21 History [Qvar 80 mcg] Carvedilol [Coreg] 6.25 mg PO BID 04/08/20 01/06/21 History Dofetilide [Tikosyn] 250 mcg PO BID 04/08/20 01/06/21 History amLODIPine [Norvasc] 5 mg PO BID 04/08/20 01/06/21 History Atorvastatin [Lipitor] 40 mg PO HS 01/06/21 01/06/21 History Magnesium Oxide 420mg 1 tab PO DAILY 01/06/21 01/06/21 History Sertraline HCl [Zoloft] 100 mg PO DAILY 01/06/21 01/06/21 History Valsartan 160 mg PO BID 01/06/21 01/06/21 History Allergies Allergy/AdvReac Type Severity Reaction Status Date / Time No Known Allergies Allergy Verified 01/06/21 20:21 Physical Exam Vitals: Vital Signs Temp Pulse Resp BP Pulse Ox 01/06/21 21:11 75 19 114/65 94 L 01/06/21 19:00 124 H 16 103/73 94 L 01/06/21 18:30 140 H 17 115/99 95 01/06/21 18:00 113 H 16 114/79 94 L 01/06/21 17:30 91 16 116/87 94 L 01/06/21 17:00 100 19 141/104 97 01/06/21 16:42 133/110 01/06/21 16:35 98.9 F 76 18 128/94 96 Intake and Output 01/06/21 01/06/21 01/06/21 06:59 14:59 22:59 Other: Weight 124.738 kg Constitutional: No acute distress, conversant, pleasant Eyes: Anicteric sclerae, moist conjunctiva, Pupils equal round reactive to light ENMT: NC/AT Oropharynx clear, no erythema, or exudates Neck: Supple, FROM, no masses, or JVD No carotid bruits No thyromegaly Lungs: Clear to auscultation Clear to percussion Normal respiratory effort, no accessory muscle use Cardiovascular: Heart regular in rate and rhythm, No murmurs, gallops, or rubs No peripheral edema Abdominal: Soft Nontender, no guarding, rebound or rigidity Abdomen moving with respiration Normoactive bowel sounds No hepatomegaly, No splenomegaly No palpable mass No abdominal wall hernia noted Skin: Normal temperature, tone, texture, turgor No induration No subcutaneous nodules No rash, lesions No ulcers Extremities: No digital cyanosis No clubbing Pedal pulses intact and symmetrical Radial pulses intact and symmetrical No calf tenderness Psychiatric: Alert and oriented to person, place and time Appropriate affect fair judgement Neuro Muscles Strength 5/5 in all 4 extremities Sensation to light touch grossly present throughout Cranial nerves II-XII grossly intact No focal sensory deficits Lymphatics: no palpable cervical or supraclavicular , or inguinal lymph nodes Results CBC & Chem 7: 01/06/21 17:05 01/06/21 17:05 Labs: Abnormal Lab Results - Last 24 Hours (Table) 01/06/21 01/06/21 Range/Units 17:05 17:05 Hgb 18.7 H (13.0-17.5) gm/dL Sodium 136 L (137-145) mmol/L Carbon Dioxide 21 L (22-30) mmol/L Glucose 172 H (74-99) mg/dL ALT 50 H (4-49) U/L Assessment and Plan Assessment: supraventricular tachycardia, with rapid ventricular response Troponins negative EKG shows atrial tachycardia Currently rate controlled after Cardizem drip Resume home medications 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
[2021-01-07] MEDS: INSULIN ASPART (NovoLOG) 100 UNIT/ML VIAL SQ SCH ×2 (02:49→06:56)
[2021-01-07 05:21] VITALS: PULSE 60
[2021-01-07 06:41] LABS: Glucose,Whole Blood 206 mg/dL (75-99)
[2021-01-07] MEDS ORDERED: FLUTICASONE 110 MCG INHALER INHALATION SCH (08:00)
[2021-01-07 08:32] VITALS: BP 109/75; RESP 18; TEMP 97.6
[2021-01-07] MEDS ORDERED: DOFETILIDE 250 MCG CAP PO SCH (09:00)
[2021-01-07] MEDS ORDERED: ASPIRIN 81 MG PO SCH (09:00)
[2021-01-07] MEDS ORDERED: SERTRALINE 100 MG TAB PO SCH (09:00)
[2021-01-07] MEDS ORDERED: amLODIPine 5 MG TAB PO SCH (09:00)
[2021-01-07] MEDS ORDERED: APIXABAN 5 MG TAB PO SCH (09:00)
[2021-01-07] MEDS ORDERED: VALSARTAN 160 MG TAB PO SCH (09:00)
[2021-01-07] MEDS ORDERED: carvediloL 6.25 MG TAB PO SCH (09:00)
--- NOTE | 2021-01-07 10:59 | CONS ---
CONSULTATION CHIEF COMPLAINT: Elevated heart rate. Mr. Jain is a 75-year-old gentleman with history of hypertension, diabetes, dyslipidemia, paroxysmal atrial fibrillation, status post prior ablation and cardioversion who presents to hospital with paroxysmal SVT. 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 Came to the emergency room where an EKG showed SVT for which he is admitted to hospital. He was treated with intravenous Cardizem but converted to sinus rhythm and this morning his heart rate is 60 beats per minute. He does not have chest pain, difficulty in breathing, palpitations, dizziness, syncope or focal neurological deficits. The patient had a cardiac catheterization in March of 2020 that did not reveal significant obstructive CAD. PAST MEDICAL HISTORY: Significant for paroxysmal atrial fibrillation, hypertension, diabetes, dyslipidemia. MEDICATIONS: Medications include metformin 500 b.i.d., amlodipine 5 b.i.d., Singulair, Lipitor 40 daily, valsartan 160 b.i.d., Coreg 6.25 b.i.d., aspirin, Eliquis 5 b.i.d., Zoloft, Tikosyn, Qvar. ALLERGIES: There are no known drug allergies. FAMILY HISTORY: Negative for premature coronary artery disease. SOCIAL HISTORY: Negative for smoking, EtOH abuse, or drug abuse. REVIEW OF SYSTEMS: HEENT is unremarkable. CARDIAC: As described above. RESPIRATORY: As described above. GI: Negative. GENITOURINARY: Negative. ALLERGY/IMMUNOLOGY: Negative. SKIN: Negative. MUSCULOSKELETAL: Significant for arthritis. PSYCHOSOCIAL: Negative. ENDOCRINE: Negative. DERM: Negative. CONSTITUTIONAL: Negative. ONCOLOGICAL: Negative. CLINICAL PSYCHOLOGY PROFESSOR: Negative. Rest of the system review is not relevant. PHYSICAL EXAMINATION: On exam, patient is afebrile. Heart rate is 60 beats per minute. Blood pressure is 109/75, respiratory rate is 18, O2 saturation is 96% on room air. There is no jugular venous distention. Carotid upstroke is normal. There is no bruit. Chest exam reveals good air entry bilaterally. Heart exam reveals first and second heart sounds. No gallop. No murmur. No rub. Abdomen is soft, nontender. Examination of extremities did not reveal any edema. Peripheral pulses are felt. CLINICAL PSYCHOLOGY PROFESSOR exam did not reveal focal neurological deficits. LABS: Labs show that the hemoglobin is 18.7, platelet count is 230. Potassium is 5. Creatinine is 0.95. Three sets of troponins are negative. TSH is 1.9. Coronavirus test is negative. ASSESSMENT: 1. Paroxysmal atrial fibrillation. 2. Paroxysmal supraventricular tachycardia. 3. Hypertension. 4. Dyslipidemia. 5. Diabetes. PLAN: The patient will continue current medications. I will stop the IV Cardizem, ambulate him and let him go home. He will be seen back by his field clinical engineer and we may consider an SVT ablation. The patient had a recent catheterization that was normal and had an echocardiogram in 19 that revealed normal LV function. MMODL / IJN: [id number] /
--- NOTE | 2021-01-07 12:27 | P.DS ---
Providers Date of admission: 01/06/21 19:08 Expected date of discharge: 01/07/21 Attending physician: Joy Loera MD Consults: 01/06/21 19:08 Consult Physician Urgent Consulting Provider: [facility] Consult Reason/Comments: Atrial tachycardia Do you want consulting provider notified?: Yes Primary care physician: Puma Watt MD Hospital Course: This is a 75-year-old male with past medical history noted below significant for paroxysmal atrial fibrillation who presented to the emergency room with tachycardia and a heart rate of 140. Patient was evaluated in the ER and admitted to the hospital for further management of his medical problems noted below. 1. Paroxysmal SVT, patient was started on IV Cardizem drip in the ER. His rhythm converted to normal sinus rhythm. He was seen and evaluated by cardiology. Thyroid function test was normal. Left heart catheterization in March 2020 showed nonobstructive coronary artery disease. Previous echocardiogram reviewed by cardiology and patient was cleared to be discharged home. His heart rate was in the 50s to low 60s on mail order clerk. Plan is to follow up with electrophysiology in the office. May consider ablation as an outpatient. 2. Chronic medical problems: Paroxysmal atrial fibrillation on anticoagulation with Eliquis, essential hypertension, type 2 diabetes, hyperlipidemia, Physical exam: General: The patient is awake and alert, in no distress Eye: there is normal conjunctiva bilaterally. Neck: The neck is supple, there is no JVD. Cardiovascular: Normal S1-S2, no S3-S4, no murmurs. Respiratory: Lungs clear to auscultation bilaterally Gastrointestinal: Abdomen is soft, nontender Musculoskeletal: There is no pedal edema. Neurological:. Speech is normal. Skin: Skin is warm and dry Patient will be discharged home in a stable condition. For further details about this hospitalization please refer to the electronic chart. Time spent on discharge > 30 minutes including counseling and coordination of care Plan - Discharge Summary New Discharge Prescriptions: Continue Apixaban [Eliquis] 5 mg PO BID Aspirin 81 mg PO DAILY metFORMIN HCL 500 mg PO BID Montelukast [Singulair] 10 mg PO HS Dofetilide [Tikosyn] 250 mcg PO BID amLODIPine [Norvasc] 5 mg PO BID Carvedilol [Coreg] 6.25 mg PO BID Beclomethasone Dip 80 Mcg/Puff [Qvar 80 mcg] 2 puff INHALATION RT-BID Atorvastatin [Lipitor] 40 mg PO HS Valsartan 160 mg PO BID Sertraline HCl [Zoloft] 100 mg PO DAILY Magnesium Oxide 420mg 1 tab PO DAILY Discharge Medication List Apixaban [Eliquis] 5 mg PO BID 12/27/14 [History] Aspirin 81 mg PO DAILY 12/30/14 [History] metFORMIN HCL 500 mg PO BID 06/15/19 [History] Montelukast [Singulair] 10 mg PO HS 08/03/19 [History] Beclomethasone Dip 80 Mcg/Puff [Qvar 80 mcg] 2 puff INHALATION RT-BID 04/08/20 [History] Carvedilol [Coreg] 6.25 mg PO BID 04/08/20 [History] Dofetilide [Tikosyn] 250 mcg PO BID 04/08/20 [History] amLODIPine [Norvasc] 5 mg PO BID 04/08/20 [History] Atorvastatin [Lipitor] 40 mg PO HS 01/06/21 [History] Magnesium Oxide 420mg 1 tab PO DAILY 01/06/21 [History] Sertraline HCl [Zoloft] 100 mg PO DAILY 01/06/21 [History] Valsartan 160 mg PO BID 01/06/21 [History] Follow up Appointment(s)/Referral(s): Medardo Camara MD [STAFF PHYSICIAN] - 1 Week (left message with office staff, they will call you with appt time) Puma Watt MD [Primary Care Provider] - 1 Week (pt. already has appt scheduled next week) Patient Instructions/Handouts: Atrial Tachycardia (DC) Activity/Diet/Wound Care/Special Instructions: heart healthy diet activity as tolerated Discharge Disposition: HOME SELF-CARE
[2021-01-07 13:13] LABS: Cholesterol 120 mg/dL (<200); HDL Cholesterol 37 mg/dL (40-60); LDL Cholesterol,Calculated 53 mg/dL (0-99); Triglycerides 152 mg/dL (<150)
[2021-01-07] MEDS ORDERED: ATORVASTATIN 40 MG TAB PO SCH (21:00)
[2021-01-07] MEDS ORDERED: MONTELUKAST 10 MG TAB PO SCH (21:00)
[2021-01-07] MEDS ORDERED: INSULIN ASPART (NovoLOG) 100 UNIT/ML VIAL SQ SCH (22:31)
== END 2021-01-07 11:10 | disposition home or self-care (01) | DRG 309 ==
LOC: EC 16:28 → 3SCARD 19:08
PROVIDERS: ADMIT Internal Medicine; ATTEND Internal Medicine
DX: I47.1 Supraventricular tachycardia (principal); I42.9 Cardiomyopathy, unspecified; I48.0 Paroxysmal atrial fibrillation; F43.10 Post-traumatic stress disorder, unspecified; E78.5 Hyperlipidemia, unspecified; E11.9 Type 2 diabetes mellitus without complications; Z20.822 Contact with and (suspected) exposure to COVID-19; I10 Essential (primary) hypertension; I25.10 Atherosclerotic heart disease of native coronary artery without angina pectoris; J45.909 Unspecified asthma, uncomplicated; Z82.5 Family history of asthma and other chronic lower respiratory diseases; Z79.899 Other long term (current) drug therapy; Z79.84 Long term (current) use of oral hypoglycemic drugs; Z79.82 Long term (current) use of aspirin; Z79.01 Long term (current) use of anticoagulants; Z90.49 Acquired absence of other specified parts of digestive tract; Z98.890 Other specified postprocedural states; Z98.49 Cataract extraction status, unspecified eye
CPT/HCPCS: 36415; 71046; 80053; 80061; 83735; 84443; 84484; 85025; 85610; 85730; 87635; 93005; 96365; 96366; 96376; 99291

== ENCOUNTER → 2021-08-04 | Outpatient (CLI) | payer OTHER ==
[2021-08-04 21:12] LABS: African American GFR (CKD) 97.9 (60.0-200.0); BUN/Creat Ratio 21.11 Ratio (12.00-20.00); Calcium 9.3 mg/dL (8.7-10.3); Non-African American GFR(CKD) 84.4 (60.0-200.0); Potassium 4.5 mmol/L (3.5-5.5)
== END | disposition home or self-care (01) ==
LOC: LABWHC1 09:50
PROVIDERS: ATTEND Internal Medicine Clinical Cardiac Electrophysiology
DX: I48.91 Unspecified atrial fibrillation (principal); I10 Essential (primary) hypertension
CPT/HCPCS: 36415; 80048; 83735; 84443

== ENCOUNTER 2021-10-23 14:44 | Emergency (ER) | payer OTHER ==
[2021-10-23 15:00] VITALS: RESP 18; TEMP 97.2
[2021-10-23] MEDS ORDERED: CASIRIVIMAB (REGN10933) (EUA) 600 MG, IMDEVIMAB (REGN10987) (EUA) 600 MG in SODIUM CHLO... IVPB ONE (16:30)
[2021-10-23] MEDS ORDERED: SODIUM CHLORIDE 0.9% 50 ML IVPB ONE (17:00)
--- NOTE | 2021-10-23 17:53 | ED ---
General Adult HPI - General Chief complaint: Upper Respiratory Infection Stated complaint: Covid exposure Source: patient, RN notes reviewed, old records reviewed Mode of arrival: ambulatory Limitations: no limitations - History of Present Illness Initial comments: Patient is a 76-year-old male who presents emergency department over concern for possible COVID-19 infection. Patient received both vaccinations as well as his booster. His is just found to be positive. He has been having 7 days of URI symptoms with a mild cough. He is requesting COVID-19 swab. I evaluated patient when he was placed in a room. He does have a history of atrial fibrillation. He has no other acute complaints at this time. Denies any chest pain, lower x-ray swelling, abdominal pain, nausea, vomiting. His no weakness or numbness. Denies fatigue. He states he is feeling improved since last week. - Related Data Home Medications Medication Instructions Recorded Confirmed Apixaban [Eliquis] 5 mg PO BID 12/27/14 01/06/21 Aspirin 81 mg PO DAILY 12/30/14 01/06/21 metFORMIN HCL 500 mg PO BID 06/15/19 01/06/21 Montelukast [Singulair] 10 mg PO HS 08/03/19 01/06/21 Beclomethasone Dip 80 Mcg/Puff 2 puff INHALATION RT-BID 04/08/20 01/06/21 [Qvar 80 mcg] Carvedilol [Coreg] 6.25 mg PO BID 04/08/20 01/06/21 Dofetilide [Tikosyn] 250 mcg PO BID 04/08/20 01/06/21 amLODIPine [Norvasc] 5 mg PO BID 04/08/20 01/06/21 Atorvastatin [Lipitor] 40 mg PO HS 01/06/21 01/06/21 Magnesium Oxide 420mg 1 tab PO DAILY 01/06/21 01/06/21 Sertraline HCl [Zoloft] 100 mg PO DAILY 01/06/21 01/06/21 Valsartan 160 mg PO BID 01/06/21 01/06/21 Allergies Allergy/AdvReac Type Severity Reaction Status Date / Time No Known Allergies Allergy Verified 10/23/21 15:00 Review of Systems ROS Statement: Those systems with pertinent positive or pertinent negative responses have been documented in the HPI. Review of Systems: CONST: Denies fever EYES: Denies blurry vision ENT: Endorses nasal congestion. C/V: Denies Chest pain RESP: Denies shortness of breath GI: Denies abdominal pain : Denies dysuria SKIN: Denies rash. MSK: Denies joint pain. NEURO: Denies headache ROS Other: All systems not noted in ROS Statement are negative. Past Medical History Past Medical History: Atrial Fibrillation Additional Past Medical History / Comment(s): RUPTURED DISC L4 L5. SOB w/activity. Uses CPAP. Type 2 diabetes. LT SHOULDER PROBLEMS. SEE HISTORY AND PHYSICAL FOR CARDIAC HISTORY. History of Any Multi-Drug Resistant Organisms: None Reported Past Surgical History: Appendectomy, Cardiac Ablation Additional Past Surgical History / Comment(s): CATARACTS REMOVED. Cardioversion. Past Anesthesia/Blood Transfusion Reactions: No Reported Reaction Past Psychological History: PTSD Smoking Status: Never smoker Past Alcohol Use History: None Reported Past Drug Use History: None Reported - Past Family History Mother Family Medical History: COPD Additional Family Medical History / Comment(s): heart problems. General Exam - General Exam Comments Initial Comments: General: Appears in no acute distress. HEAD: Normal with no signs of head trauma. EYES: EOMI ENT: Hearing grossly intact. Mild rhinorrhea. RESPIRATORY: Clear breath sounds bilaterally. No wheezes, rales, or rhonchi. Patient is not hypoxic. C/V: Regular rate and rhythm. S1 and S2 auscultated, no edema, peripheral pulses 2+ and intact throughout ABD: Abd is soft, nontender, nondistended EXT: Normal range of motion, no obvious deformity SKIN: No rashes or lesions observed on exposed skin. NEURO: Alert and oriented 4. Limitations: no limitations Course Vital Signs 10/23/21 10/23/21 14:56 18:31 Temperature 97.2 F L Pulse Rate 83 82 Respiratory 18 18 Rate Blood Pressure 139/100 144/95 O2 Sat by Pulse 95 96 Oximetry Medical Decision Making - Medical Decision Making Based on the patient's presentation and physical exam, I believe he is a high- risk Covid 19 exposure. If positive he would meet criteria for monoclonal antibody therapy. Therefore we will obtain a COVID-19 swab. I do not believe that further laboratory studies or imaging at this time. He was in agreement this plan. Covid swab was positive. Patient consented to monoclonal antibody therapy. Following therapy, he was observed and had no reactions. He will be discharged home. We discussed quarantine. I instructed the patient to follow up with their PCP in the next 3 days. I explained that the patient should return to the emergency department if they experience any worsening symptoms. Strict return precautions were discussed with the patient. The patient expressed understanding of these instructions. I answered all questions that the patient had. The patient was discharged home in good condition with their prescriptions and follow up information. - Lab Data Lab Results 10/23/21 Range/Units 15:02 Coronavirus (PCR) Detected A (Not Detectd) Disposition Clinical Impression: COVID-19 Disposition: HOME SELF-CARE Condition: Good Instructions (If sedation given, give patient instructions): Coronavirus Disease 2019 (COVID-19), Upper Respiratory Infection (ED) Is patient prescribed a controlled substance at d/c from ED?: No Referrals: Mary Kimball MD [Primary Care Provider] - 1-2 days
[2021-10-23 18:32] VITALS: BP 144/95; PULSE 82
== END 2021-10-23 18:32 | disposition home or self-care (01) ==
LOC: EC 14:44
DX: U07.1 COVID-19 (principal); I48.91 Unspecified atrial fibrillation; Z79.01 Long term (current) use of anticoagulants; Z79.82 Long term (current) use of aspirin; Z79.84 Long term (current) use of oral hypoglycemic drugs; Z79.899 Other long term (current) drug therapy; Z79.51 Long term (current) use of inhaled steroids
CPT/HCPCS: 87635; 99283; Q0243

== ENCOUNTER → 2021-11-26 | Outpatient (CLI) | payer OTHER ==
--- NOTE | 2021-11-26 12:26 | MR ---
EXAMINATION TYPE: MR shoulder RT wo con DATE OF EXAM: 11/26/2021 COMPARISON: Outside radiographs 09/14/2021 HISTORY: 76-year-old male M25.511, Right shoulder pain TECHNIQUE: Multiplanar, multisequence imaging of the right shoulder is performed without contrast. FINDINGS: There is moderate long head biceps tenosynovial fluid. Abnormal increased signal at the junction of t he intracapsular and extracapsular portions and some linear intrasubstance signal near the biceps anc hor. Heterogeneous signal of the subscapularis tendon. There is articular sided tearing of the superior garner lf of the subscapularis tendon, axial image 17. Minimal fatty streaks within the subscapularis muscle belly. Fluid tracks along the superior half myotendinous junction. Severe degenerative change of the acromion clavicular joint with joint effusion. Inferior spurring im pinges onto the underlying myotendinous junction of the supraspinatus. There is heterogeneous signal throughout both supraspinatus and infraspinatus tendons. Full-thickness defect anterior to mid supraspinous tendon measuring 5 mm long and 1.8 cm AP. This is located approx imately 8 mm proximal to the lateral enthesis. Trace fluid within the subacromial/subdeltoid bursa. No atrophy of either supraspinatus or infraspinatus. Mild diffuse narrowing of the humeral head articular cartilage. No glenohumeral joint effusion. There is a tear of the superior labrum extending from the biceps anchor to the upper third aspect of the p osterior labrum. There is soft tissue replacement within the rotator cuff interval and mild thickening of the axillary recess up to 5 mm. No Hill-Sachs deformity or os acromiale. Patchy red marrow is present and can be seen with anemia, obesity, smoking, chronic disease. IMPRESSION: 1. Diffuse rotator cuff tendinosis. There is a focal full-thickness defect of the anterior dimension within its tendon (5 mm long and 1.8 cm AP). 2. Unable to exclude an underlying significant partial thickness tear of the superior half of the sub scapularis tendon. Mild fatty strength within the subscapularis muscle belly. 3. Moderate to severe AC joint OA with subacromial impingement. 4. Torn superior labrum extending to the posterior labrum. Tear extends into the biceps anchor. 5. Marked tendinosis versus partial tear at the junction of the intracapsular and extracapsular porti ons of the long head biceps tendon. Moderate long head biceps tenosynovitis. 6. Some soft tissue replacement in the rotator cuff interval. This is a nonspecific finding that coul d represent synovitis but can also be seen with adhesive capsulitis. Clinically correlate.
== END | disposition home or self-care (01) ==
LOC: RADMRIMAIN 10:39
PROVIDERS: ATTEND Orthopaedic Surgery
DX: S43.431A Superior glenoid labrum lesion of right shoulder, initial encounter (principal); M19.011 Primary osteoarthritis, right shoulder; X58.XXXA Exposure to other specified factors, initial encounter

== ENCOUNTER 2022-01-01 08:05 | Inpatient (IN) | payer OTHER ==
[2021-12-30 13:58] VITALS: BMI 34.7
--- NOTE | 2021-12-31 10:52 | HP ---
HISTORY AND PHYSICAL CHIEF COMPLAINT: Right shoulder pain. HISTORY OF PRESENT ILLNESS: The patient is a 76-year-old [id number] retired gentleman who presents with progressive right shoulder pain after an injury he sustained in June of 2021. He is having pain with overhead use and at night. He notes it significantly limits him. He has tried medications in addition to an injection and therapy, without much relief. PAST MEDICAL HISTORY: Significant for hypertension, atrial fibrillation, asthma, type 2 diabetes, hypercholesterolemia. PAST SURGICAL HISTORY: Significant for cataract removal and appendectomy. CURRENT MEDICATIONS: Amlodipine, aspirin, atorvastatin, carvedilol and Eliquis along with metformin, sertraline and valsartan. ALLERGIES: HE DENIES DRUG ALLERGIES. FAMILY HISTORY: Significant for heart disease. SOCIAL HISTORY: Negative for current tobacco or alcohol use. REVIEW OF SYSTEMS: Sixteen-point review of systems otherwise reviewed and is noncontributory. PHYSICAL EXAMINATION: On examination, the patient is approximately 6 feet tall, 270 pounds of endomorphic habitus. HEENT exam is nonfocal. Neck is supple. On examination of his right shoulder, he is tender about the anterior subacromial space. He has moderate crepitus. Active range of motion: Forward elevation 155 degrees, external rotation with arm at side 60 degrees, internal rotation to L3. Motor strength 5 minus over 5 for external rotation and abduction. Impingement test, Neer test and Speed test are positive. He does have some pain with cross-body abduction. His distal neurovascular exam appears intact in the right upper extremity. MRI report right shoulder 11/26/2021 shows evidence of a rotator cuff tear involving the supraspinatus along with bicipital tendinosis and a superior labral tear. Significant degenerative changes involving the right acromioclavicular joint are noted. IMPRESSION: 1. Symptomatic right rotator cuff tear. 2. Right proximal bicipital tendinosis. 3. Right superior labral tear. 4. Right acromioclavicular joint arthritis. RECOMMENDATIONS: I talked to the patient at length regarding his condition along with treatment options. At this point he remains quite symptomatic despite conservative measures. After thorough discussion, he opts to proceed with surgery. We will plan to proceed with arthroscopic evaluation with probable subacromial decompression, rotator cuff repair, biceps tenotomy, and possible distal clavicular resection. We will likely perform that as an outpatient procedure. We will likely allow him to resume his Eliquis postoperatively. MMODL / IJN: [id number] /
[~2022-01-01 08:05] MED LIST changes: -ALPRAZolam 0.25 MG TAB PO PRN; -ALPRAZolam 0.5 MG TAB PO PRN; -ASPIRIN 325 MG TAB PO ONE; -ATORVASTATIN 80 MG TAB PO ONE; +DEXAMETHASONE SOD PHOSPHATE 4 MG/ML 1 ML VIAL IV ONE; +HYDROmorphone 1 MG/ML 1 ML SYRINGE IVP PRN; +LACTATED RINGERS 1,000 ML IV SCH; +MIDAZOLAM 2 MG/2 ML VIAL IV PRN; -NITROGLYCERIN SL TABS 0.4 MG TAB SUBLINGUAL PRN; +ONDANSETRON 4 MG/2 ML VIAL IVP ONE; -SODIUM CHLORIDE 0.9% 1,000 ML in EMPTY BAG 1 BAG IV ONE
[2022-01-01 08:51] LABS: Glucose,Whole Blood 143 mg/dL (75-99)
[2022-01-01] MEDS ORDERED: MIDAZOLAM 2 MG/2 ML VIAL IVP ONE (08:58)
--- NOTE | 2022-01-01 09:21 | P.ANPRN ---
Procedure Note - Anesthesia - Nerve Block Performed Right Interscalene Single Time Out Performed: Yes Date of Procedure: 01/01/22 Procedure Start Time: 08:57 Location of Patient: PreOp Indication: Acute Post-Operative Pain, Requested by Surgeon Sedation Type: Sedate with meaningful contact maintained Preparation: Sterile Prep, Sterile Dressing Position: Sitting Catheter: None Needle Types: Pajunk Needle Gauge: 21 Ultrasound used to visualize needle placement: Yes Ultrasound used to observe medication spread: Yes Injectate: 0.5% Ropivacaine (see comment for volume) (30 ml + decadron 4 mg) Blood Aspirated: No Pain Paresthesia on Injection Noted: No Resistance on Injection: Normal Image Stored and Saved: Yes Events: Uneventful and Well Tolerated
[2022-01-01] MEDS ORDERED: ROPIVACAINE 5 MG/ML 30 ML VIAL ONE (09:58)
[2022-01-01] MEDS ORDERED: SUCCINYLCHOLINE CHLORIDE 100 MG/5 ML SYR IV ONE (09:58)
[2022-01-01] MEDS ORDERED: DEXAMETHASONE SOD PHOSPHATE 4 MG/ML 1 ML VIAL ONE (09:58)
[2022-01-01] MEDS ORDERED: PHENYLEPHRINE-0.9% NACL SYG 1,000 MCG/10 ML SYRINGE ONE (09:58)
[2022-01-01] MEDS ORDERED: PROPOFOL 10 MG/ML 20 ML VIAL IV ONE (09:58)
[2022-01-01] MEDS ORDERED: LIDOCAINE 1% INJ 10MG/ML (20 ML MDV) ONE (09:58)
[2022-01-01] MEDS ORDERED: fentaNYL (PF) 50 MCG/ML 2 ML AMP ONE (09:58)
[2022-01-01] MEDS ORDERED: MIDAZOLAM 2 MG/2 ML VIAL ONE (09:58)
[2022-01-01] MEDS ORDERED: ePHEDrine 50 MG/ML 1 ML AMP ONE (09:58)
[2022-01-01] MEDS ORDERED: EPINEPHrine (PF) 1 ML in SODIUM CHLORIDE 0.9% IRRIGATIO 3,000 ML IRRIGATION ONE ×8 (10:03)
--- NOTE | 2022-01-01 11:30 | P.OP ---
Date of Procedure: 01/01/22 Preoperative Diagnosis: Right shoulder impingement/rotator cuff tear/acromioclavicular joint arthritis Postoperative Diagnosis: Same in addition to 1 1/2 cm rotator cuff tear/high-grade partial-thickness tear intra-articular portion of the biceps Procedure(s) Performed: Right shoulder arthroscopic subacromial decompression/rotator cuff repair/distal clavicular resection/biceps tenotomy Implants: Arthrex 5.5 mm swivel lock anchor times one, 4.75 mm swivel lock anchor 1 Anesthesia: BABAK, regional Surgeon: Dar Joseph Beef Farmer #1: Cipriano Eisenberg Estimated Blood Loss (ml): 10 Pathology: none sent Condition: stable Disposition: PACU Indications for Procedure: The patient's a 76-year-old male who presents with progressive right shoulder pain despite conservative measures. A discussion of the risks and benefits of operative intervention versus continued conservative measures was made patient. He opted to proceed with surgery. Operative risks to include infection, neurovascular injury, development of blood clots, possible tendon rerupture, possible postoperative stiffness and need for subsequent procedures was discussed. Informed consent was obtained. Operative Findings: As below Description of Procedure: The patient was brought to the operating room, and after induction of general anesthesia was placed in a beachchair position. A preoperative interscalene block was placed for postoperative analgesia. I examined the right shoulder. There was no gross block to passive motion or gross glenohumeral instability. The right upper extremity was prepped and draped in normal fashion. The bony outlines the acromion, distal clavicle, and coracoid process were outlined with a skin marker. The glenohumeral joint was inflated with 50 mL of saline utilizing a spinal needle from posterior approach. A posterior portal was made through a 5 mm skin incision 1 cm medial and inferior to the posterior lateral border time. A blunt trocar was used to easily into the joint. Diagnostic arthroscopy was performed. An anterior portal was made just lateral to the coracoid process entering the joint above the subscapularis tendon. The subscapularis tendon appeared to be intact. Anterior labrum was intact. The inferior recess was inspected. The posterior labrum was intact. There was a high-grade partial-thickness tear of the long head of the biceps involving interarticular portion. It was elected to proceed with release at this point. This was released from the superior labrum with electrocautery and was allowed to retract to the bicipital groove. On inspection the rotator cuff, a full- thickness tear involving the anterior aspect the supraspinatus measuring 1-1/2 cm was noted. The arthroscope was placed into the subacromial space. A lateral portal was made 2 centimeters inferior to the anterior lateral border of the acromion. The rotator cuff was then easily mobilized back to the greater tuberosity. The soft tissue on the undersurface of the acromion was debrided with a motorized shaver and electrocautery clearly defining the anterior medial and lateral borders as well as the distal clavicle. An anterior inferior acromioplasty was performed with a motorized levi starting anterolateral, then extending this posteriorly, then extending this medially. I converted to a flat acromion and this was verified in the posterior and lateral viewing portals. There was impingement of the distal clavicle on the subacromial space therefore 4 mm of distal clavicle was resected with a motorized levi. The greater tuberosity was lightly decorticating with a shaver down to a bleeding bony surface. An accessory superior lateral portal was made just off the lateral edge of the acromion for anchor placement. A 4.75 mm swivel lock anchor preloaded with fiber tape was then placed just off the articular surface with the appropriate starting awl. Good purchase was obtained. These fiber tapes were then passed the rotator cuff with a scorpion suture passer. A lateral row was created utilizing these tapes. A 5.5 mm swivel lock anchor was placed laterally. Good purchase was obtained. Final arthroscopic view showed adequate compression at the footprint. The arthroscope was then removed. The portals were closed with simple 3-0 nylon sutures. A sterile dressing was applied in addition to a sling. The patient was then awoken from general anesthesia and transferred to recovery room in good condition. Blood loss was estimated at 10 mL. No complications were incurred. Sponge and needle counts were correct in the case. Cipriano CONRAD assisted and the major components of the case to include arm positioning, anchor placement, and rotator cuff repair.
[2022-01-01] MEDS: METOPROLOL TARTRATE 5 MG/5 ML VIAL IVP ONE ×2 (11:58→13:10)
[2022-01-01] MEDS ORDERED: METOPROLOL TARTRATE 5 MG/5 ML VIAL IVP ONE ×2 (13:15→13:48)
[2022-01-01] MEDS ORDERED: DILTIAZEM DRIP BOLUS FROM BAG 1 MG SOLN IV ONE (14:54)
--- NOTE | 2022-01-01 14:59 | P.CRDCN ---
History of Present Illness History of present illness: HISTORY OF PRESENTING ILLNESS This is a pleasant 76-year-old male past medical history significant for persistent atrial fibrillation status post ablation in 2019, atrial tachycardia, hypertension, type 2 diabetes, asthma. He follows in the office with Dr. Camara. We have been asked to see in consultation for atrial fibrillation with rapid ventricular response. Patient presents as an outpatient today for planned procedure with Orthopedics for Right shoulder arthroscopic subacromial d ecompression/rotator cuff repair/distal clavicular resection/biceps tenotomy. Patient did see Dr. Hansen in the office 12/09/2021 and was cleared for surgery. Recommend the patient was started Eliquis date after surgery. Postoperatively patient went atrial fibrillation with rapid ventricular response, heart rate in the 120s. Patient seen and examined in post op/recovery, no acute distress. He does endorse palpitations. He denies any chest pain, shortness of breath, lightheadedness, dizziness. He does have some slight nausea after anesthesia. DIAGNOSTICS EKG reveals atrial fibrillation with rapid ventricular response versus atrial tachycardia Patient not on telemetry to review Most recent cardiac catheterization 03/2020 revealed no significant obstructive CAD, normal filling pressures, no gradient across the aortic valve. Gross recent echocardiogram 04/2019 revealed an EF of 5055% Laboratory reviewed, blood glucose 143. Current home medications include amlodipine 5 mg twice a day, valsartan 160 mg twice a day, Tikosyn 250mcg BID, carvedilol 6.25 mg twice a day, atorvastatin 40 mg nightly, aspirin 81 mg daily, Eliquis 5 mg twice a day REVIEW OF SYSTEMS At the time of my exam: CONSTITUTIONAL: Denies fever or chills. CARDIOVASCULAR: Denies chest pain, shortness of breath, orthopnea, PND or palpitations. RESPIRATORY: Denies cough. GASTROINTESTINAL: Denies abdominal pain, diarrhea, constipation, nausea or vomiting. MUSCULOSKELETAL: Denies myalgias. NEUROLOGIC: Denies numbness, tingling, headacbe or weakness. ENDOCRINE: Denies fatigue, weight change, polydipsia or polyurina. GENITOURINARY: Denies burning, hematuria or urgency with micturation. HEMATOLOGIC: Denies history of anemia or bleeding. PHYSICAL EXAMINATION Vitals 153/95, heart rate 128, afebrile, oxygen saturation is 95% on room air CONSTITUTIONAL: No apparent distress. HEENT: Head is normocephalic. Pupils are equal, round. Sclerae anicteric. Mucous membranes of the mouth are moist. No JVD. No carotid bruit. CHEST EXAMINATION: Lungs are clear to auscultation. No chest wall tenderness is noted on palpation or with deep breathing. HEART EXAMINATION: Irregular rate and rhythm. S1, S2 heard. No murmurs, gallops or rub. ABDOMEN: Soft, nontender. Positive bowel sounds. EXTREMITIES: 2+ peripheral pulses, no lower extremity edema and no calf tenderness. SKIN: warm, dry NEUROLOGIC EXAMINATION: Patient is awake, alert and oriented x3. ASSESSMENT Persistent atrial fibrillation with rapid ventricular response, on Eliquis outpatient History of atrial tachycardia Hypertension Type 2 diabetes Asthma PLAN Recommend admitting patient Start Cardizem IV Bolus 10mg and drip 5mg/hr Start Eliquis tomorrow Continue all home cardiac medications Obtain 2D echocardiogram Further recommendations based on clinical course Nurse practitioner note has been reviewed by physician. Signing provider agrees with the documented findings, assessment, and plan of care. Past Medical History Past Medical History: Atrial Fibrillation, Asthma, Diabetes Mellitus, Hyperlipidemia, Hypertension, Osteoarthritis (OA), Sleep Apnea/CPAP/BIPAP Additional Past Medical History / Comment(s): RUPTURED DISC L4 L5. BACK PAIN , SOB w/activity. Uses CPAP. Type 2 diabetes. LT SHOULDER PROBLEMS. SEE HISTORY AND PHYSICAL FOR CARDIAC HISTORY. History of Any Multi-Drug Resistant Organisms: None Reported Past Surgical History: Appendectomy, Cardiac Ablation Additional Past Surgical History / Comment(s): CATARACTS REMOVED. Cardioversion. Past Anesthesia/Blood Transfusion Reactions: No Reported Reaction Smoking Status: Never smoker - Past Family History Mother Family Medical History: COPD Additional Family Medical History / Comment(s): heart problems. Medications and Allergies Home Medications Medication Instructions Recorded Confirmed Type RX: Apixaban [Eliquis] 5 mg PO BID 12/27/14 01/01/22 History RX: Aspirin 81 mg PO DAILY 12/30/14 01/01/22 History RX: metFORMIN HCL 500 mg PO BID 06/15/19 01/01/22 History RX: Montelukast [Singulair] 10 mg PO HS 08/03/19 01/01/22 History RX: Beclomethasone Dip 80 Mcg/Puff 2 puff INHALATION RT-BID 04/08/20 01/01/22 History [Qvar 80 mcg] RX: Carvedilol [Coreg] 6.25 mg PO BID 04/08/20 01/01/22 History RX: Dofetilide [Tikosyn] 250 mcg PO BID 04/08/20 01/01/22 History RX: amLODIPine [Norvasc] 5 mg PO BID 04/08/20 01/01/22 History Magnesium Oxide 420mg 1 tab PO DAILY 01/06/21 01/01/22 History RX: Atorvastatin [Lipitor] 40 mg PO HS 01/06/21 01/01/22 History RX: Sertraline HCl [Zoloft] 100 mg PO DAILY 01/06/21 01/01/22 History RX: Valsartan 160 mg PO BID 01/06/21 01/01/22 History Cholecalciferol (Vitamin D3) 125 mcg PO DAILY 12/30/21 01/01/22 History [Vitamin D3 (125 MCG = 5,000 IU)] Empagliflozin [Jardiance] 25 mg PO DAILY 12/30/21 01/01/22 History HYDROcodone/APAP 7.5-325MG [[place] 1 each PO Q6HR PRN #28 tab 01/01/22 Rx 7.5] Allergies Allergy/AdvReac Type Severity Reaction Status Date / Time No Known Allergies Allergy Verified 01/01/22 08:27 Physical Exam Vitals: Vital Signs Temp Pulse Resp BP Pulse Ox 01/01/22 13:39 128 H 18 153/95 95 01/01/22 13:17 114 H 18 1147/82 95 01/01/22 13:01 128 H 18 117/82 95 01/01/22 12:48 128 H 18 117/82 94 L 01/01/22 12:25 99 18 155/90 95 01/01/22 12:12 95 15 139/104 94 L 01/01/22 11:57 95 15 135/97 94 L 01/01/22 11:42 124 H 16 139/78 94 L 01/01/22 11:27 97.0 F L 124 H 16 136/99 94 L 01/01/22 09:47 116 H 18 120/76 95 01/01/22 09:11 113 H 18 116/83 98 01/01/22 08:45 98.0 F 62 16 128/93 98 Intake and Output 12/31/21 01/01/22 01/01/22 22:59 06:59 14:59 Intake Total 1454 Output Total 10 Balance 1444 Intake: IV 1454 Output: Estimated Blood Loss 10 Other: Weight 121.4 kg Results Current Medications Generic Name Dose Route Start Last Admin Trade Name Freq PRN Reason Stop Dose Admin Hydromorphone HCl 0.5 mg 01/01/22 07:00 Hydromorphone 1 Mg/Ml 1 Ml Syringe IVP 01/01/22 23:00 Q5M PRN Phase I - Pain Control Lactated Ringer's 1,000 mls @ 20 mls/hr 01/01/22 05:42 01/01/22 08:53 Lactated Ringers IV 01/31/22 05:43 1,400 mls .Q24H ROHINI Administration Midazolam HCl 2 mg 01/01/22 05:42 Midazolam 2 Mg/2 Ml Vial IV 01/02/22 23:00 ONCE PRN Pre-Op Anxiety Intake and Output 12/31/21 01/01/22 01/01/22 22:59 06:59 14:59 Intake Total 1454 Output Total 10 Balance 1444 Intake: IV 1454 Output: Estimated Blood Loss 10 Other: Weight 121.4 kg Patient Weight 01/02/22 06:59 Weight 121.4 kg
[2022-01-01] MEDS: DILTIAZEM 125 MG in SODIUM CHLORIDE 0.9% 100 ML IV SCH (15:23)
[2022-01-01] MEDS ORDERED: HYDROcodone/APAP 7.5-325MG 1 EACH TAB PO PRN (15:41)
[2022-01-01] MEDS ORDERED: LACTATED RINGERS 1,000 ML IV SCH (15:45)
[2022-01-01 16:08] LABS: Glucose,Whole Blood 141 mg/dL (75-99)
[2022-01-01] MEDS: carvediloL 6.25 MG TAB PO SCH (18:08)
[2022-01-01] MEDS: DOFETILIDE 250 MCG CAP PO SCH (19:05)
[2022-01-01] MEDS: VALSARTAN 160 MG TAB PO SCH (20:18)
[2022-01-01] MEDS: amLODIPine 5 MG TAB PO SCH (20:18)
[2022-01-01] MEDS: metFORMIN 500 MG TAB PO SCH (20:18)
[2022-01-01 20:49] LABS: Glucose,Whole Blood 209 mg/dL (75-99)
[2022-01-01] MEDS: FLUTICASONE 110 MCG INHALER INHALATION SCH ×2 (20:50→22:55)
[2022-01-01] MEDS ORDERED: ATORVASTATIN 40 MG TAB PO SCH (21:00)
[2022-01-01] MEDS ORDERED: MONTELUKAST 10 MG TAB PO SCH (21:00)
[2022-01-02] MEDS: DOFETILIDE 250 MCG CAP PO SCH (06:27)
[2022-01-02] MEDS: carvediloL 6.25 MG TAB PO SCH (06:27)
[2022-01-02] MEDS: metFORMIN 500 MG TAB PO SCH (06:27)
[2022-01-02 06:30] LABS: Glucose,Whole Blood 151 mg/dL (75-99)
[2022-01-02] MEDS: FLUTICASONE 110 MCG INHALER INHALATION SCH (07:46)
--- NOTE | 2022-01-02 08:31 | XR ---
EXAMINATION TYPE: XR chest 1V DATE OF EXAM: 01/02/2022 COMPARISON: Chest x-ray January 06, 2021 HISTORY: Shortness of breath TECHNIQUE: Single AP portable frontal upright view of the chest is obtained. FINDINGS: There is redemonstration of elevated left hemidiaphragm and left basilar scarring and/or a telectasis. Lateral right lung opacity consistent with pleural thickening again seen. Low lung volume s and cardiomegaly redemonstrated. Right lung remains clear. The osseous structures are intact. IMPRESSION: Low lung volumes and cardiomegaly with elevated left hemidiaphragm and left basilar line ar scarring and/or atelectasis are all redemonstrated. No new infiltrate. No significant change from prior.
[2022-01-02] MEDS ORDERED: ASPIRIN 81 MG PO SCH (09:00)
[2022-01-02] MEDS ORDERED: MAGNESIUM OXIDE 400 MG TAB PO SCH (09:00)
[2022-01-02] MEDS ORDERED: APIXABAN 5 MG TAB PO SCH (09:00)
[2022-01-02] MEDS ORDERED: SERTRALINE 100 MG TAB PO SCH (09:00)
[2022-01-02] MEDS ORDERED: CHOLECALCIFEROL 125 MCG (5000 IU) TABLET PO SCH (09:00)
[2022-01-02 09:17] LABS: African American GFR (CKD) >90 (>60 ml/min/1.73 sqM); Anion Gap 9 mmol/L; Blood Urea Nitrogen 21 mg/dL (9-20); Calcium 8.9 mg/dL (8.4-10.2); Carbon Dioxide 21 mmol/L (22-30); Chloride 106 mmol/L (98-107); Glucose 214 mg/dL (74-99); Non-African American GFR(CKD) 87 (>60 ml/min/1.73 sqM); Potassium 4.1 mmol/L (3.5-5.1); Sodium 136 mmol/L (137-145)
[2022-01-02] MEDS: amLODIPine 5 MG TAB PO SCH (09:50)
--- NOTE | 2022-01-02 10:38 | P.PN ---
Subjective Progress Note Date: 01/02/22 Principal diagnosis: Right shoulder impingement/rotator cuff tear/acromioclavicular joint arthritis; 1 1/2 cm rotator cuff tear/high-grade partial-thickness tear intra-articular por tion of the biceps Patient was seen at bedside this morning resting comfortably with sling over ri ght arm lying semirecumbent in bed. [employer] drip is running currently. Patient says he is having some numbness/tingling in his right hand. Patient did have nerve block for right arm yesterday prior to surgery. Patient does say he has some pain in his right shoulder, however, when patient keeps his right arm in front of him on his lap it feels better. Patient denies chest pain, fever, shortness of breath, nausea, loss of bowel/bladder control. Objective - Vital Signs Vital signs: Vital Signs Temp 97.6 F 01/01/22 23:15 Pulse 92 01/02/22 04:20 Resp 19 01/02/22 04:20 BP 136/72 01/02/22 04:20 Pulse Ox 96 01/02/22 04:20 Intake & Output 01/01/22 01/02/22 01/02/22 18:59 06:59 18:59 Intake Total 1504 240 Output Total 2110 290 Balance -606 -290 240 Weight 121.4 kg Intake: IV 1504 Oral 240 Output: Urine 2100 290 Estimated Blood Loss 10 - Exam Right shoulder Sling is present over the right arm as well as big bulky dressing over the right shoulder due to shoulder surgery performed yesterday. Patient does have some numbness tingling in the right hand due to block. Patient is able to flex and extend at the right elbow and has full range of motion in right wrist in flexion/extension. Sensation is equal, symmetric, bilateral intact throughout the upper and lower extremities. Patient has good strength and right elbow and right wrist. Neurovascular status is intact. Cap refill is under 3 seconds bilaterally in the hands. Radial pulses intact, 2+ bilaterally. Negative Homans bilaterally - Labs CBC & Chem 7: 01/02/22 08:26 Labs: Abnormal Lab Results - Last 24 Hours (Table) 01/01/22 01/01/22 01/02/22 Range/Units 15:57 20:28 06:13 Sodium (137-145) mmol/L Carbon Dioxide (22-30) mmol/L BUN (9-20) mg/dL Glucose (74-99) mg/dL POC Glucose (mg/dL) 141 H 209 H 151 H (75-99) mg/dL 01/02/22 Range/Units 08:26 Sodium 136 L (137-145) mmol/L Carbon Dioxide 21 L (22-30) mmol/L BUN 21 H (9-20) mg/dL Glucose 214 H (74-99) mg/dL POC Glucose (mg/dL) (75-99) mg/dL Assessment and Plan Assessment: Right shoulder impingement/rotator cuff tear/acromioclavicular joint arthritis - 1 1/2 cm rotator cuff tear/high-grade partial-thickness tear intra-articular portion of the biceps Postoperative day 1 status post - Right shoulder arthroscopic subacromial decompression/rotator cuff repair/distal clavicular resection/biceps tenotomy Plan: 1. Right shoulder impingement/rotator cuff tear/acromioclavicular joint arthritis -surgery from yesterday, 01/01/2022- Right shoulder arthroscopic subacromial decompression/rotator cuff repair/distal clavicular resection/biceps tenotomy. Patient stable at bedside this morning. Patient is orthopedically stable for discharge home. We do recommend patient to follow-up with us in the outpatient setting in 2 weeks 2. Appreciate medical management; appreciate cardio management - patient found to have A. fib with RVR; patient on Cardizem drip currently. Orthopedics will defer the rest of the in-hospital care to medicine and cardiology 3. Pain management - [place] 4. DVT prophylaxis - Eliquis; Aspirin 5. GI prophylaxis 6. Encourage incentive spirometer use 7. Discharge planning - patient orthopedically stable for discharge home. Discharge per medicine/cardiology Time with Patient: Less than 30
[2022-01-02] MEDS: DILTIAZEM 125 MG in SODIUM CHLORIDE 0.9% 100 ML IV SCH (10:57)
[2022-01-02] MEDS: VALSARTAN 160 MG TAB PO SCH (10:57)
[2022-01-02 11:35] LABS: Magnesium 1.9 mg/dL (1.6-2.3)
[2022-01-02 11:48] LABS: Glucose,Whole Blood 131 mg/dL (75-99)
[2022-01-02 12:40] VITALS: RESP 16
[2022-01-02 12:41] VITALS: TEMP 97.5
--- NOTE | 2022-01-02 12:53 | P.HPIM ---
History of Present Illness Patient pleasant 76-year-old male admitted for right shoulder impingement surgery patient is obese post surgery patient went into atrial fibrillation with rapid ventricular rate with heart rate is of 120s unsure whether patient is rate controlled medications on the day of surgery. Patient usually takes Eliquis 5 mg twice a day which was resumed today. Patient was a symptomatically at the time. Patient recommended sinus rhythm patient was on Cardizem 10 mg which is being weaned off and presently on 5 mg per hour. Patient heart rate is in 70s converted to sinus rhythm Cardizem will be discontinued and the patient will be monitored and if cleared by cardiology after to 3 hours patient can be discharged. Patient's the shoulder pain is. Fairly well controlled at this time. Because of atrial fibrillation patient's care was transferred to medicine service from orthopedic surgery. REVIEW OF SYSTEMS: CONSTITUTIONAL: No fever, no malaise, no fatigue. HEENT: No recent visual problems or hearing problems. Denied any sore throat. CARDIOVASCULAR: No chest pain, orthopnea, PND, no palpitations, no syncope. PULMONARY: No shortness of breath, no cough, no hemoptysis. GASTROINTESTINAL: No diarrhea, no nausea, no vomiting, no abdominal pain. NEUROLOGICAL: No headaches, no weakness, no numbness. HEMATOLOGICAL: Denies any bleeding or petechiae. GENITOURINARY: Denies any burning micturition, frequency, or urgency. MUSCULOSKELETAL/RHEUMATOLOGICAL: Denies any joint pain, swelling, or any muscle pain. ENDOCRINE: Denies any polyuria or polydipsia. The rest of the 14-point review of systems is negative. PHYSICAL EXAMINATION: GENERAL: The patient is alert and oriented x3, not in any acute distress. Well d eveloped, well nourished. HEENT: Pupils are round and equally reacting to light. EOMI. No scleral icterus. No conjunctival pallor. Normocephalic, atraumatic. No pharyngeal erythema. No thyromegaly. CARDIOVASCULAR: S1 and S2 present. No murmurs, rubs, or gallops. PULMONARY: Chest is clear to auscultation, no wheezing or crackles. ABDOMEN: Soft, nontender, nondistended, normoactive bowel sounds. No palpable organomegaly. MUSCULOSKELETAL: No joint swelling or deformity. EXTREMITIES: No cyanosis, clubbing, or pedal edema. NEUROLOGICAL: Gross neurological examination did not reveal any focal deficits. SKIN: No rashes. Assessment and plan -Atrial fibrillation with rapid ventricular rate appears to be provoked seconded surgery and probably patient's the rate control medications are being held for surgery which may have contributed to his rapid ventricular rate. Patient is presently sinus rhythm if cleared by cardiology patient will be discharged Cardizem is being discontinued at this time. Patient appears to have history of paroxysmal atrial fibrillation -Hypertension: Patient patient was resumed on multiple other antidepressive medications except for amlodipine as patient is on Cardizem at this time -type 2 diabetes mellitus: Patient blood sugars are bit elevated but titration of his diabetic medications can be done as an outpatient. -Asthma without any acute exacerbation - obesity, sleep apnea and uses CPAP machine at home. DVT prophylaxis: Patient is presently on Eliquis for atrial fibrillation which was resumed today. If cleared by cardiology patient will be discharged today Past Medical History Past Medical History: Atrial Fibrillation, Asthma, Diabetes Mellitus, Hyperlipidemia, Hypertension, Osteoarthritis (OA), Sleep Apnea/CPAP/BIPAP Additional Past Medical History / Comment(s): RUPTURED DISC L4 L5. BACK PAIN , SOB w/activity. Uses CPAP. Type 2 diabetes. LT SHOULDER PROBLEMS. SEE HISTORY AND PHYSICAL FOR CARDIAC HISTORY. History of Any Multi-Drug Resistant Organisms: None Reported Past Surgical History: Appendectomy, Cardiac Ablation Additional Past Surgical History / Comment(s): CATARACTS REMOVED. Cardio version. Past Anesthesia/Blood Transfusion Reactions: No Reported Reaction Smoking Status: Never smoker - Past Family History Mother Family Medical History: COPD Additional Family Medical History / Comment(s): heart problems. Medications and Allergies Home Medications Medication Instructions Recorded Confirmed Type Apixaban [Eliquis] 5 mg PO BID 12/27/14 01/01/22 History Aspirin 81 mg PO DAILY 12/30/14 01/01/22 History metFORMIN HCL 500 mg PO BID 06/15/19 01/01/22 History Montelukast [Singulair] 10 mg PO HS 08/03/19 01/01/22 History Beclomethasone Dip 80 Mcg/Puff 2 puff INHALATION RT-BID 04/08/20 01/01/22 History [Qvar 80 mcg] Carvedilol [Coreg] 6.25 mg PO BID 04/08/20 01/01/22 History Dofetilide [Tikosyn] 250 mcg PO BID 04/08/20 01/01/22 History amLODIPine [Norvasc] 5 mg PO BID 04/08/20 01/01/22 History Atorvastatin [Lipitor] 40 mg PO HS 01/06/21 01/01/22 History Magnesium Oxide 420mg 1 tab PO DAILY 01/06/21 01/01/22 History Sertraline HCl [Zoloft] 100 mg PO DAILY 01/06/21 01/01/22 History Valsartan 160 mg PO BID 01/06/21 01/01/22 History Cholecalciferol (Vitamin D3) 125 mcg PO DAILY 12/30/21 01/01/22 History [Vitamin D3 (125 MCG = 5,000 IU)] Empagliflozin [Jardiance] 25 mg PO DAILY 12/30/21 01/01/22 History HYDROcodone/APAP 7.5-325MG [[place] 1 each PO Q6HR PRN #28 tab 01/01/22 Rx 7.5] polyethylene glycoL 3350 [Miralax] 17 gm PO DAILY PRN #15 packet 01/02/22 Rx Allergies Allergy/AdvReac Type Severity Reaction Status Date / Time No Known Allergies Allergy Verified 01/01/22 08:27 Physical Exam Vitals: Vital Signs Temp Pulse Resp BP Pulse Ox 01/02/22 08:00 97.5 F L 70 16 119/75 98 01/02/22 04:20 92 19 136/72 96 01/01/22 23:15 97.6 F 87 18 122/64 95 01/01/22 20:15 98.4 F 133 H 18 120/81 93 L 01/01/22 18:14 136 H 16 01/01/22 18:05 137 H 118/78 90 L 01/01/22 17:00 76 16 143/72 99 01/01/22 16:00 94 16 151/72 94 L 01/01/22 15:20 133 H 18 148/62 93 L 01/01/22 14:35 129 H 18 142/93 92 L 01/01/22 13:39 128 H 18 153/95 95 01/01/22 13:17 114 H 18 1147/82 95 01/01/22 13:01 128 H 18 117/82 95 Intake and Output 01/01/22 01/02/22 01/02/22 22:59 06:59 14:59 Intake Total 50 240 Output Total 700 290 Balance -650 -290 240 Intake: IV 50 Oral 240 Output: Urine 700 290 Other: Voiding Method Urinal Results CBC & Chem 7: 01/02/22 08:26 Labs: Abnormal Lab Results - Last 24 Hours (Table) 01/01/22 01/01/22 01/02/22 Range/Units 15:57 20:28 06:13 Sodium (137-145) mmol/L Carbon Dioxide (22-30) mmol/L BUN (9-20) mg/dL Glucose (74-99) mg/dL POC Glucose (mg/dL) 141 H 209 H 151 H (75-99) mg/dL 01/02/22 01/02/22 Range/Units 08:26 11:42 Sodium 136 L (137-145) mmol/L Carbon Dioxide 21 L (22-30) mmol/L BUN 21 H (9-20) mg/dL Glucose 214 H (74-99) mg/dL POC Glucose (mg/dL) 131 H (75-99) mg/dL Thrombosis Risk Factor Assmnt - Choose All That Apply Each Factor Represents 1 point: History of: Each Risk Factor Represents 2 Points: Age 61-74 years Thrombosis Risk Factor Assessment Total Risk Factor Score: 3 Thrombosis Risk Factor Assessment Level: Moderate Risk
--- NOTE | 2022-01-02 12:53 | P.DS ---
Providers Date of admission: 01/02/22 11:49 Attending physician: Mary Kimball Consults: 01/01/22 17:16 Consult Physician Routine Consulting Provider: Mary Kimball Consult Reason/Comments: medical management Do you want consulting provider notified?: Yes 01/01/22 17:30 Consult Physician Stat Consulting Provider: Medardo Camara Consult Reason/Comments: Afib with RVR Do you want consulting provider notified?: Already Contacted 01/02/22 10:10 Consult Physician Routine Consulting Provider: Mary Kimball Consult Reason/Comments: medical management and discharge planning Do you want consulting provider notified?: Yes Primary care physician: Mary Kimball Hospital Course: Refer to my history of present illness for further details Plan - Discharge Summary Discharge Rx Participant: No New Discharge Prescriptions: New HYDROcodone/APAP 7.5-325MG [[place] 7.5] 1 each PO Q6HR PRN #28 tab PRN Reason: Pain polyethylene glycoL 3350 [Miralax] 17 gm PO DAILY PRN #15 packet PRN Reason: Constipation Continue Apixaban [Eliquis] 5 mg PO BID Aspirin 81 mg PO DAILY metFORMIN HCL 500 mg PO BID Montelukast [Singulair] 10 mg PO HS Dofetilide [Tikosyn] 250 mcg PO BID amLODIPine [Norvasc] 5 mg PO BID Carvedilol [Coreg] 6.25 mg PO BID Beclomethasone Dip 80 Mcg/Puff [Qvar 80 mcg] 2 puff INHALATION RT-BID Atorvastatin [Lipitor] 40 mg PO HS Valsartan 160 mg PO BID Sertraline HCl [Zoloft] 100 mg PO DAILY Magnesium Oxide 420mg 1 tab PO DAILY Empagliflozin [Jardiance] 25 mg PO DAILY Cholecalciferol (Vitamin D3) [Vitamin D3 (125 MCG = 5,000 IU)] 125 mcg PO DAILY Discharge Medication List Apixaban [Eliquis] 5 mg PO BID 12/27/14 [History] Aspirin 81 mg PO DAILY 12/30/14 [History] metFORMIN HCL 500 mg PO BID 06/15/19 [History] Montelukast [Singulair] 10 mg PO HS 08/03/19 [History] Beclomethasone Dip 80 Mcg/Puff [Qvar 80 mcg] 2 puff INHALATION RT-BID 05/12/20 [History] Carvedilol [Coreg] 6.25 mg PO BID 04/08/20 [History] Dofetilide [Tikosyn] 250 mcg PO BID 04/08/20 [History] amLODIPine [Norvasc] 5 mg PO BID 04/08/20 [History] Atorvastatin [Lipitor] 40 mg PO HS 01/06/21 [History] Magnesium Oxide 420mg 1 tab PO DAILY 01/06/21 [History] Sertraline HCl [Zoloft] 100 mg PO DAILY 01/06/21 [History] Valsartan 160 mg PO BID 01/06/21 [History] Cholecalciferol (Vitamin D3) [Vitamin D3 (125 MCG = 5,000 IU)] 125 mcg PO DAILY 12/30/21 [History] Empagliflozin [Jardiance] 25 mg PO DAILY 12/30/21 [History] HYDROcodone/APAP 7.5-325MG [[place] 7.5] 1 each PO Q6HR PRN #28 tab 01/01/22 [Rx] polyethylene glycoL 3350 [Miralax] 17 gm PO DAILY PRN #15 packet 01/02/22 [Rx] Follow up Appointment(s)/Referral(s): Medardo Camara MD [STAFF PHYSICIAN] - 1 Week Cipriano Eisenberg PAC [PHYSICIAN BARREL FINISHER] - 01/15/22 2:30 pm Mary Kimball MD [Primary Care Provider] - 1 Week Patient Instructions/Handouts: *Surgery [facility] - (Anesthesia) Discharge Instructions Outpatient Surgery, *Surgery [facility] - (Adv Ortho) Shoulder Discharge Instructions Activity/Diet/Wound Care/Special Instructions: may resume eliquis on 01/02/2022 Discharge Disposition: HOME SELF-CARE
[2022-01-02 13:46] VITALS: BP 135/80; PULSE 63
--- NOTE | 2022-01-02 14:20 | P.PN ---
Subjective Progress Note Date: 01/02/22 This is a pleasant 76-year-old gentleman with a past history significant for persistent atrial fibrillation status post ablation in 2019, currently on Tikosyn, atrial tachycardia, hypertension, type 2 diabetes and asthma. He follows in the office with Dr. Mckeon and was seen on 12/09/2021 for preoperative clearance. Patient presented yesterday for outpatient right shoulder arthroscopic subacromial decompression/rotator cuff repair/distal clavicular resection/biceps tenotomy with Dr. Joseph. We were asked to see the patient after he went into atrial fibrillation with rapid ventricular response postoperatively. He was initially started on Cardizem drip. This has since been discontinued. Currently it appears he is maintaining sinus mechanism with PACs. From a cardiac standpoint he's feeling well. Denies any chest discomfort or shortness of breath. He's had no edema or orthopnea. He denies any complaints of palpitations. He has been restarted on his Eliquis. Objective - Vital Signs Vital signs: Vital Signs Temp 97.6 F 01/01/22 23:15 Pulse 92 01/02/22 04:20 Resp 19 01/02/22 04:20 BP 136/72 01/02/22 04:20 Pulse Ox 96 01/02/22 04:20 Intake & Output 01/01/22 01/02/22 01/02/22 18:59 06:59 18:59 Intake Total 1504 240 Output Total 2110 290 Balance -606 -290 240 Weight 121.4 kg Intake: IV 1504 Oral 240 Output: Urine 2100 290 Estimated Blood Loss 10 - Exam PHYSICAL EXAMINATION: HEENT: Head is atraumatic, normocephalic. Pupils equal, round. Neck is supple. There is no elevated jugular venous pressure. HEART EXAMINATION: Heart sounds regular, S1 and S2 normal. No murmur or gallop heard. Extrasystole noted. CHEST EXAMINATION: Lungs are clear to auscultation and precussion. No chest wall tenderness is noted on palpation or with deep breathing. ABDOMEN: Soft, nontender. Bowel sounds are heard. No organomegaly noted. EXTREMITIES: 2+ peripheral pulses with no evidence of peripheral edema and no calf tenderness noted. Right shoulder dressing dry and intact with right arm sling in place. NEUROLOGIC patient is awake, alert and oriented x3. . - Labs CBC & Chem 7: 01/02/22 08:26 Labs: Abnormal Lab Results - Last 24 Hours (Table) 01/01/22 01/01/22 01/02/22 Range/Units 15:57 20:28 06:13 Sodium (137-145) mmol/L Carbon Dioxide (22-30) mmol/L BUN (9-20) mg/dL Glucose (74-99) mg/dL POC Glucose (mg/dL) 141 H 209 H 151 H (75-99) mg/dL 01/02/22 01/02/22 Range/Units 08:26 11:42 Sodium 136 L (137-145) mmol/L Carbon Dioxide 21 L (22-30) mmol/L BUN 21 H (9-20) mg/dL Glucose 214 H (74-99) mg/dL POC Glucose (mg/dL) 131 H (75-99) mg/dL Assessment and Plan Assessment: #1 persistent atrial fibrillation, status post ablation and chemical cardioversion had been maintaining sinus mechanism with episode of paroxysmal atrial fibrillation with rapid ventricular response postoperatively, currently in sinus rhythm #2 hypertension #3 diabetes mellitus type 2 #4 asthma Plan: From cardiology's perspective medications were reviewed continue Tikosyn And Eliquis. Continue beta erinn. From our perspective patient may be discharged home and follow-up in the office with Dr. Camara. REAM CUTTER note has been reviewed, I agree with a documented findings and plan of care. Patient was seen and examined.
== END 2022-01-02 14:47 | disposition home or self-care (01) | DRG 501 ==
LOC: OR 08:05 → 3SCARD 16:48 → OR 01-02 10:31 → OBSVTOIN 01-02 11:49 → 3SCARD 01-02 11:49 → UNDODISOB 01-02 14:47
PROVIDERS: ADMIT Internal Medicine; ATTEND Internal Medicine
PROC: 0LN14ZZ Release Right Shoulder Tendon, Percutaneous Endoscopic Approach (ICD-10-PCS; 2022-01-01)
PROC: 0MM14ZZ Reattachment of Right Shoulder Bursa and Ligament, Percutaneous Endoscopic Approach (ICD-10-PCS; 2022-01-01)
PROC: 0PB Upper Bones, Excision (ICD-10-PCS; 2022-01-01)
PROC: 0PB94ZZ Excision of Right Clavicle, Percutaneous Endoscopic Approach (ICD-10-PCS; 2022-01-01)
PROC: 3E0T3BZ Introduction of Anesthetic Agent into Peripheral Nerves and Plexi, Percutaneous Approach (ICD-10-PCS; 2022-01-01)
PROC: 0LQ14ZZ Repair Right Shoulder Tendon, Percutaneous Endoscopic Approach (ICD-10-PCS; principal; 2022-01-01 09:40)
DX: M75.101 Unspecified rotator cuff tear or rupture of right shoulder, not specified as traumatic (principal); I48.19 Other persistent atrial fibrillation; M19.011 Primary osteoarthritis, right shoulder; M25.811 Other specified joint disorders, right shoulder; Z20.822 Contact with and (suspected) exposure to COVID-19; Z68.36 Body mass index [BMI] 36.0-36.9, adult; E11.9 Type 2 diabetes mellitus without complications; E66.9 Obesity, unspecified; I49.3 Ventricular premature depolarization; E78.00 Pure hypercholesterolemia, unspecified; E78.5 Hyperlipidemia, unspecified; G47.30 Sleep apnea, unspecified; I10 Essential (primary) hypertension; J45.909 Unspecified asthma, uncomplicated; Z98.42 Cataract extraction status, left eye; Z98.41 Cataract extraction status, right eye; Z79.01 Long term (current) use of anticoagulants; Z79.82 Long term (current) use of aspirin; Z79.84 Long term (current) use of oral hypoglycemic drugs; Z79.899 Other long term (current) drug therapy; Z82.5 Family history of asthma and other chronic lower respiratory diseases
CPT/HCPCS: 64415; 71045; 76942; 80048; 83735; 84443

== ENCOUNTER → 2022-06-05 | Outpatient (CLI) | payer OTHER ==
[2022-06-05 17:01] LABS: African American GFR (CKD) 85.6 (60.0-200.0); Anion Gap 9.1 mmol/L (10.00-18.00); BUN/Creat Ratio 15.6 Ratio (12.00-20.00); Blood Urea Nitrogen 15.6 mg/dL (9.0-27.0); Calcium 9.3 mg/dL (8.7-10.3); Carbon Dioxide 25.9 mmol/L (20.0-27.5); Non-African American GFR(CKD) 73.8 (60.0-200.0); Potassium 4.4 mmol/L (3.5-5.5)
== END | disposition home or self-care (01) ==
LOC: LABWHC1 08:44
PROVIDERS: ATTEND Internal Medicine Clinical Cardiac Electrophysiology
DX: Z00.00 Encounter for general adult medical examination without abnormal findings (principal); I10 Essential (primary) hypertension; E11.9 Type 2 diabetes mellitus without complications; I48.91 Unspecified atrial fibrillation
CPT/HCPCS: 36415; 80048; 83735

== ENCOUNTER → 2022-07-08 | Outpatient (CLI) | payer OTHER ==
[2022-07-08 16:54] LABS: African American GFR (CKD) 88.8 (60.0-200.0); Anion Gap 11.2 mmol/L (10.00-18.00); BUN/Creat Ratio 18.97 Ratio (12.00-20.00); Blood Urea Nitrogen 18.4 mg/dL (9.0-27.0); Carbon Dioxide 22.3 mmol/L (20.0-27.5); Non-African American GFR(CKD) 76.6 (60.0-200.0); Potassium 4.2 mmol/L (3.5-5.5)
== END | disposition home or self-care (01) ==
LOC: LABWHC1 10:01
PROVIDERS: ATTEND Internal Medicine Clinical Cardiac Electrophysiology
DX: I50.9 Heart failure, unspecified (principal); I48.91 Unspecified atrial fibrillation; I42.9 Cardiomyopathy, unspecified
CPT/HCPCS: 36415; 80048; 83735; 84443; 84481

== ENCOUNTER → 2022-09-07 | Outpatient (CLI) | payer OTHER ==
[2022-09-07 14:41] LABS: African American GFR (CKD) 77.4 (60.0-200.0); Anion Gap 9.4 mmol/L (10.00-18.00); BUN/Creat Ratio 17.04 Ratio (12.00-20.00); Blood Urea Nitrogen 18.4 mg/dL (9.0-27.0); Calcium 9.2 mg/dL (8.7-10.3); Carbon Dioxide 26.8 mmol/L (20.0-27.5); Magnesium 1.9 mg/dL (1.5-2.4); Non-African American GFR(CKD) 66.8 (60.0-200.0); Potassium 4.4 mmol/L (3.5-5.5)
== END | disposition home or self-care (01) ==
LOC: LABWHC1 10:02
PROVIDERS: ATTEND Internal Medicine Clinical Cardiac Electrophysiology
DX: I10 Essential (primary) hypertension (principal)
CPT/HCPCS: 36415; 80048; 83735

== ENCOUNTER → 2022-11-25 | Outpatient (CLI) | payer OTHER ==
[2022-11-25 22:50] LABS: African American GFR (CKD) 96.5 (60.0-200.0); BUN/Creat Ratio 18.89 Ratio (12.00-20.00); Carbon Dioxide 23.9 mmol/L (20.0-27.5); Chloride 107 mmol/L (96-109); Glucose 102 mg/dL (70-110); Non-African American GFR(CKD) 83.3 (60.0-200.0); Potassium 4.4 mmol/L (3.5-5.5); Sodium 141 mmol/L (135-145)
== END | disposition home or self-care (01) ==
LOC: LABWHC1 11:45
PROVIDERS: ATTEND Nurse Practitioner Adult Health
DX: I10 Essential (primary) hypertension (principal); I48.19 Other persistent atrial fibrillation
CPT/HCPCS: 36415; 80048; 83735; 84443

== ENCOUNTER → 2023-10-28 | Outpatient (CLI) | payer OTHER ==
--- NOTE | 2023-10-30 14:32 | MR ---
EXAMINATION TYPE: MR Prostate wo/w con DATE OF EXAM: 10/28/2023 9:07 AM COMPARISON: None. CLINICAL INDICATION:Male, 78 years old with history of R97.20 elevated PSA; Elevated PSA. TECHNIQUE: Multi-planar, multi-sequence imaging of the pelvis is performed prior to and following the uncomplicated administration of bolus intravenous gadolinium. CONTRAST: 10 Gadavist Interpretive Criteria: PI-RADS v2.1 SERUM PSA: 5.4 on 06/18/2022. 4.2 on 09/16/2023. SURGICAL PATHOLOGY: No data available. FINDINGS: Prostatic dimensions: 4.8 x 6.2 x 3.6 cm. Ellipsoid Volume:56.10 (PSA density=0.07 ng/mL/mL) CENTRAL GLAND (Central and Transition Zones/CZ+TZ): Multiple bilateral, heterogenous appearing hypertrophic stromal nodules, without suspicious lesion. M edian lobe hypertrophy with protrusion into the base of the bladder. (PI-RADS 2) PERIPHERAL ZONE (PZ): Bilateral linear, indistinct wedgelike areas of low ADC, and low T2 signal, No evidence of masslike a bnormality, or localized perfusional hypervascularity, to further suggest a focus of clinically signi ficant prostate cancer. (PI-RADS 2) SEMINAL VESICLES (SV): Symmetric and unremarkable. PERIPROSTATIC TISSUES: Unremarkable. LYMPH NODES: No enlarged pelvic lymph node. REMAINING PELVIS: Bladder wall is within normal limits given distention. No abnormal free or organized intrapelvic fluid collection. No pathologic bowel dilation or mural thickening. Colonic diverticula are present. No hernia visualized OSSEOUS STRUCTURES: No suspicious osseous abnormality. IMPRESSION: 1. No specific features for high-risk prostate cancer. Maximum PI-RADS score: 2. 2. Moderate BPH, estimated gland volume 56.10 mL.
== END | disposition home or self-care (01) ==
LOC: RADMRIMAIN 08:03
PROVIDERS: ATTEND Internal Medicine
DX: N40.0 Benign prostatic hyperplasia without lower urinary tract symptoms (principal); R97.20 Elevated prostate specific antigen [PSA]
CPT/HCPCS: 72197; A9585

== ENCOUNTER 2023-12-28 08:00 | Day surgery (SDC) | payer OTHER ==
[2023-12-23 15:43] VITALS: BMI 33.5
[~2023-12-28 08:00] MED LIST changes: -DEXAMETHASONE SOD PHOSPHATE 4 MG/ML 1 ML VIAL IV ONE; -HYDROmorphone 1 MG/ML 1 ML SYRINGE IVP PRN; -MIDAZOLAM 2 MG/2 ML VIAL IV PRN; -ONDANSETRON 4 MG/2 ML VIAL IVP ONE
[2023-12-28] MEDS ORDERED: LACTATED RINGERS 1,000 ML IV ONE (08:17)
[2023-12-28 08:41] LABS: Glucose,Whole Blood 126 mg/dL (70-110)
[2023-12-28] MEDS ORDERED: PROPOFOL 10 MG/ML 20 ML VIAL IV ONE (08:44)
--- NOTE | 2023-12-28 09:02 | P.PCN ---
Date of Procedure: 12/28/23 Procedure(s) Performed: BRIEF HISTORY: Patient is a 78-year-old pleasant white male scheduled for an elective colonoscopy as a part of screening for colon cancer. His been having intermittent loose bowel movements for the last 6 months with occasional lower abdominal pain. PROCEDURE PERFORMED: Colonoscopy with biopsy and snare polypectomy. PREOPERATIVE DIAGNOSIS:: Screening for colon Cancer. IV sedation per Anesthesia. PROCEDURE: After informed consent was obtained, the patient, was brought into the endoscopy unit. IV sedation was administered by Anesthesia under continuous monitoring. Digital rectal examination was normal. Initially the Olympus CF-160 flexible video colonoscope was then inserted in the rectum, gradually advanced into the cecum without any difficulty. Careful examination was performed as the scope was gradually being withdrawn. Ileocecal valve and the appendiceal orifice were visualized and appeared normal. Prep was fair.. Mucosa of the cecum, appeared normal. In the ascending colon there was a 1 cm polyp that was removed by snare polypectomy. Mucosa of the ascending colon, transverse colon, normal. In the descending colon there was a 5 mm sessile polyp removed by cold snare polypectomy. Scattered left sided diverticulosis seen. Biopsies were done from the descending colon. Mucosa of the descending colon, sigmoid colon, and rectum appeared normal. Retroflexion was performed in the rectum and no lesions were seen. The patient tolerated the procedure well. IMPRESSION: 1 cm ascending colon polyp status post snare polypectomy 5 mm descending colon polyp status post polypectomy Scattered sigmoid diverticulosis RECOMMENDATIONS: Findings of this examination were discussed with the patient as well as his family. He was advised to follow up with the biopsy results. If the biopsy results adenoma he can have a repeat colonoscopy in 3 years..
[2023-12-28 09:03] VITALS: PULSE 69; TEMP 96.9
[2023-12-28 09:32] VITALS: BP 148/78; RESP 16
== END 2023-12-28 09:44 | disposition home or self-care (01) ==
LOC: ORWHC2ENDO 08:00
PROVIDERS: ATTEND Internal Medicine Gastroenterology
DX: Z12.11 Encounter for screening for malignant neoplasm of colon (principal); D12.2 Benign neoplasm of ascending colon; D12.3 Benign neoplasm of transverse colon; K57.30 Diverticulosis of large intestine without perforation or abscess without bleeding; I48.91 Unspecified atrial fibrillation; I10 Essential (primary) hypertension; J45.909 Unspecified asthma, uncomplicated; G47.33 Obstructive sleep apnea (adult) (pediatric); M19.90 Unspecified osteoarthritis, unspecified site; E11.9 Type 2 diabetes mellitus without complications; K21.9 Gastro-esophageal reflux disease without esophagitis; Z79.01 Long term (current) use of anticoagulants; Z79.84 Long term (current) use of oral hypoglycemic drugs; Z79.899 Other long term (current) drug therapy; Z98.890 Other specified postprocedural states
CPT/HCPCS: 88305; 45380; 45385; J2704

== ENCOUNTER → 2024-01-23 | Outpatient (CLI) | payer OTHER ==
--- NOTE | 2024-01-23 21:26 | US ---
EXAMINATION TYPE: US kidneys/renal and bladder DATE OF EXAM: 01/23/2024 COMPARISON: NONE CLINICAL INDICATION: Male, 78 years old with history of N18.1 CHRONIC KIDNEY DISEASE, STAGE 1; CKD st age 3 EXAM MEASUREMENTS: Right Kidney: 13.2 x 5.8 x 5.1 cm Left Kidney: 12.3 x 7.7 x 6.7 cm Right Kidney: *Enlarged. Anechoic area seen upper pole: 3.6 x 2.9 x 2.7 cm. Anechoic area seen lower pole: 1.4 x 1.4 x 1.1 cm. Metabolic small cyst Left Kidney: Appearance of mild dilation of collecting system-anechoic connecting appearance seen. Anechoic area also seen at mid: 1.7 x 1.5 x 1.8 cm compatible with a simple cyst Bladder: Wall measures upper limits. Appears anechoic. Bilateral Jets seen: Yes IMPRESSION: 1. Right renal simple appearing cysts. 2. There may be some mild prominence of the left renal collecting system.
== END | disposition home or self-care (01) ==
LOC: RADUSWWP 14:54
PROVIDERS: ATTEND Internal Medicine
DX: N18.1 Chronic kidney disease, stage 1 (principal)
CPT/HCPCS: 76770

== ENCOUNTER → 2025-04-02 | Outpatient (CLI) | payer OTHER | END | disposition home or self-care (01) | LOC: LABWHC1 14:00 | PROVIDERS: ATTEND Urology | DX: R97.20 Elevated prostate specific antigen [PSA] (principal) | CPT/HCPCS: 36415; 84153 ==